=== PATIENT | male | born 1945 | race Caucasian/White ===

== ENCOUNTER 2024-11-14 17:57 | Inpatient (IN) | payer MEDICARE, SELFPAY ==
[2024-11-14] VITALS (20 sets, daily range): BP systolic 61–153; BP diastolic 28–116; BMI 30.7; BMI 28.6
[2024-11-14] MEDS: DIPRIVAN 100 IV ×3 (15:43→22:38)
[2024-11-14 15:51] LABS: HCO3 17.8 mmol/L (21-28); O2 Saturation % 97.9 % (94-98); PCO2 33 mmHg (35-48); PO2 84 mmHg (83-108); pH 7.34 (7.35-7.45)
[2024-11-14] MEDS: SUBLIMAZE 100 MCG IV (15:51)
[2024-11-14] MEDS: LEVOPHED 250 IV (16:11)
[2024-11-14 16:17] LABS: Hematocrit 34.3 % (39.0-52.0); Mean Corpuscular Hgb 31.9 pg (27.0-31.0); Mean Corpuscular Volume 91.2 fL (80.0-94.0); Mean Platelet Volume 9.6 fL (7.4-10.4); Platelet Count 401 10^3/uL (130-400); Red Blood Cell Count 3.76 10^6/uL (4.70-6.10); Red Cell Dist. Width 15.6 % (11.5-14.5); White Blood Cell Count 25.3 10^3/uL (4.8-10.8)
[2024-11-14 16:27] LABS: Urine Albumin 3+ (Neg - Trace); Urine Bilirubin Negative (Negative); Urine Character Cloudy (Clear); Urine Color Brown; Urine Glucose Negative (Negative); Urine Ketone 1+ (Negative); Urine Leukocyte 3+ (Negative); Urine Nitrite Positive (Negative); Urine Occult Blood 4+ (Negative); Urine Urobilinogen 1+ (Neg - 1+)
[2024-11-14 16:28] LABS: ALT (SGPT) 57 U/L (0-50); AST (SGOT) 98 U/L (17-59); Albumin 3.1 g/dl (3.5-5.0); Alkaline Phosphatase 179 U/L (38-126); Blood Urea Nitrogen 55 mg/dl (9-20); Calcium 8.1 mg/dl (8.4-10.2); Carbon Dioxide 18 mmol/L (22-30); Chloride 94 mmol/L (98-107); Estimated Creatinine Clearance 39 ml/min; Glucose 136 mg/dl (70-99); Potassium 3.9 mmol/L (3.5-5.1); Sodium 127 mmol/L (135-145); Total Protein 5.6 g/dl (6.3-8.2); eGFR 37.35
[2024-11-14 16:30] LABS: INR 1.08; PT 14.3 Sec (11.4-14.6)
[2024-11-14 16:31] LABS: APTT 48.1 Sec (23.4-35.0)
[2024-11-14 16:33] LABS: Lactic Acid 4.6 mmol/L (0.7-2.0)
[2024-11-14 16:38] LABS: NT-proBNP 3460 pg/ml; Troponin I 0.018 ng/ml
[2024-11-14 16:42] LABS: COVID-19 Antigen Positive (Negative)
[2024-11-14 16:43] LABS: Urine Bacteria Many (Negative); Urine Red Blood Cell 30-40 /HPF (0-2); Urine White Cell >100 /HPF (0-5)
[2024-11-14] MEDS: DECADRON 6 MG IV (16:45)
--- NOTE | 2024-11-14 16:51 | ED.GENMED ---
History of Present Illness
General
Chief Complaint: Unresponsive
Time Seen by Provider: 11/14/24 15:49
History of Present Illness
History of Present Illness:
79-year-old male with recent history of CVA with left-sided deficits presenting to the emergency department for unresponsive state. Patient arrives from rehab facility where patient has been rehabbing after recent stroke. Patient is on day 5 of
COVID symptoms. Prior to arrival, was noted to have increased difficulty breathing. Per medics, patient tachypneic and hypoxic. Patient subsequently intubated and route for airway protection. On arrival, patient minimally responsive, intubated.
Per medics, patient also noted to have some abdominal distention, which nurses note has been ongoing. No additional history obtained at this time.
Past History
Past History
ED Past Medical History: None
ED Past Surgical History: None
Social History
Tobacco: Former smoker
Alcohol: Occasional
Personal:
Living: with family
Family History
Family History: Negative Diabetes, Early CAD, Asthma or Cancer
Phy Exam
Physical Exam
Physical Exam:
General: Unresponsive, intubated
HEENT: Intubated
Neck: appears supple
CV: Tachycardic, irregularly irregular rhythm
Resp: With rhonchorous breath sounds bilaterally
Abd: Moderate distention, reducible umbilical hernia
Extremities: No deformities, no swelling
Neuro: Minimally responsive to pain, not currently following commands
: deferred
Rectal: deferred
Skin: Intact
Sepsis
Sepsis Screening
Sepsis Assessment: Septic Shock
Sepsis Screening: Lactate >/=4mmol/L
Sepsis Screen
Sepsis Screen: Septic Shock
Date: 11/14/24
Time: 19:50
Course
Orders/Labs/Results
Orders:
Orders
11/14/24 Breakfast
NPO
Allow oral meds: No
Allow clear liquids: No
NPO with Ice Chips: No
11/14/24 15:35
Electrocardiogram (*1) Urgent
Reason for Study: Heart Failure, Left
EKG- Treatment ONCE
11/14/24 15:45
ABG [Arterial Blood Gas] Urgent
%Oxygen/Room Air: 94
Comment: intubated
11/14/24 15:46
CR Chest Portable - 1 View Urgent
Comment:
Reason For Exam: Intubated
Reason Study Needs to be Portable: Patient Unstable
11/14/24 15:48
Fentanyl Citrate/Pf [Sublimaze] 100 mcg .ROUTE .[facility]
11/14/24 15:50
Fentanyl Citrate/Pf [Sublimaze] 100 mcg IV NOW STA
11/14/24 15:53
Lactic Acid Urgent
PTT Urgent
Prothrombin Time Urgent
Blood Culture Urgent
AL Source: Blood/Venous
Specimen Description:
Influenza A+B Rapid Molecular Urgent
AL Source: Nasal Swab
Specimen Description:
Date Specimen was Collected: 11/14/24
Time Specimen was Collected: 15:35
11/14/24 15:54
COVID-19 Antigen Urgent
Source: Nasal Swab
Complete Blood Count/With Diff Urgent
Comprehensive Metabolic Panel Urgent
Manual Differential Urgent
NT-proBNP Urgent
Triglycerides Urgent
Comment: ADD ON
Troponin I Urgent
Urinalysis Reflex To Culture Urgent
Date Specimen was Collected: 11/14/24
Time Specimen was Collected: 15:35
Urine Creatinine Urgent
Date Specimen was Collected: 11/14/24
Time Specimen was Collected: 15:35
Comment: ADD ON
Urine Microscopic Reflex Cult Urgent
Urine Sodium Urgent
Date Specimen was Collected: 11/14/24
Time Specimen was Collected: 15:35
Comment: ADD ON
Urine Culture Urgent
AL Source: U
Specimen Description:
Date Specimen was Collected: 11/14/24
Time Specimen was Collected: 15:35
11/14/24 16:03
Blood Culture Urgent
AL Source: Blood/Venous
Specimen Description:
11/14/24 16:08
NORepinephrine 4 MG/250 ML [Levophed] 4 mg in 250 ml .ROUTE .[facility]
11/14/24 16:15
NORepinephrine 4 MG/250 ML [Levophed] 4 mg in 250 ml IV PER PROTOCOL
Currently infusing. Continue current dose and titrate:: Yes
Titrate to keep:: MAP > 65 mmHg
Titrate by mcg/min:: 1-2 mcg/min
Frequency of titrations (minutes):: 5
Maximum dose in ICU in mcg/min:: 30
Maximum dose in IMU in mcg/min:: 8
Maximum dose in IVU in mcg/min:: 4
Begin to taper infusion when:: Remained at goal for 4hrs
Taper by mcg/min:: 1-2 mcg/min
Frequency of taper (minutes) if patient maintains goal:: 30
Taper to off?: Yes
If infusion off & no longer maintaining goal:: Contact Provider
Propofol 1,000,000 Mcg/100 ml [Diprivan] 1,000,000 mcg in 100 ml IV PER PROTOCOL
Indication:: Deep Sedation
Begin Infusion:: Now
Goal:: RASS -3 to -5 or BIS < 60 or ventilator synchrony
Maximum dose in mcg/kg/min:: 50
Continue currently infusion dose and titrate:: Yes
Titration Instructions:: Titrate by 5-10 mcg/kg/min every 5 minutes until RASS -3 to -5 or
Titration Instructions:: BIS < 60 or ventilator synchrony is met.
Titration Instructions:: Administer analgesia bolus dose(s) & titrate analgesia prior to
Titration Instructions:: adjusting sedation.
Taper Instructions:: If RASS is at or below goal for 4 consecutive hours decrease infusion by
Taper Instructions:: 5-10 mcg/kg/min every 2 hours. Do not wean infusion to off if patient is
Taper Instructions:: receiving a continuous NMBA or has received bolus NMBA with the past 3 hrs
Over-sedation Instructions:: If BIS < 40 and synchronous with ventilator decrease infusion by
Over-sedation Instructions:: 5-10 mcg/kg/min every 2 hour until BIS = 40-60.
Notify provider:: immediately if patient exhibits signs/symptoms of propofol-related
Notify provider:: infusion syndrome.
Additional Instructions:: Patient MUST be mechanically ventilated and MUST receive analgesia.
11/14/24 16:20
Dexamethasone Sod Phosphate [Decadron] 6 mg IV NOW STA
11/14/24 16:51
0.9% Sodium Chloride 1000 ml [Nss] 1,000 ml IV BOLUS
11/14/24 16:52
CT Pe/abd/pel W Urgent
Reason For Exam: hypoxia, covid
11/14/24 17:04
Cefepime HCl [Maxipime] 2,000 mg IV NOW STA
11/14/24 17:10
Sterile Water [Sterile Water For Injection] 20 ml .ROUTE .[facility]
11/14/24 17:26
Admit/Transfer Patient As Directed
Co-Sign Provider:
Level of Care: Inpatient admission
Assign to:: ICU
Physician / Group: Parth
Diagnosis: Hypoxia, Sepsis, COVID
Reason for Hospitalization: vent, pressors
Expected length of stay greater than two midnights?: Yes
ELOS- Estimated Length of Stay in days: 3
I certify the patient meets the requirements for IP care: Yes
PRN Pain Medication Management As Directed
May give lesser potent ordered pain med per pt: Yes
preference::
Protocol:: Medication orders for pain may be administered in a
manner that supports deferring to patient preference
when the pt is:
- Requesting an ordered lesser potent pain medication.
Least to most potent pain medications are defined
as: acetaminophen < NSAID < tramadol < opioids
(morphine, oxycodone, hydromorphone).
- Requesting a lesser dose of the same medication IF
ORDERED.
- Requesting a less intrusive route of administration
if both routes are prescribed by the provider (PO <
IV).
11/14/24 17:51
CT Head W/o Iv Contrast Stat
Comment:
Reason For Exam: change in mental status
0.9% Sodium Chloride 1000 ml [Nss] 1,000 ml IV BOLUS
11/14/24 17:58
Respiratory Culture/Gram Stain Urgent
AL Source: Sputum
Specimen Description:
11/14/24 18:00
PHENYLephrine 50 MG/250 ML NSS [Christos-Synephrine] 50 mg in 250 ml IV PER PROTOCOL
Initial dose in mcg/min, then titrate:: 50
Titrate to keep:: MAP > 65 mmHg
Titrate by mcg/min:: 20 mcg/min
Frequency of titrations (minutes):: 5
Maximum dose in ICU in mcg/min:: 200
Maximum dose in IMU in mcg/min:: 80
Begin to taper infusion when:: Remained at goal for 4hrs
Taper by mcg/min:: 20 mcg/min
Frequency of taper (minutes) if patient maintains goal:: 30
Taper to off?: Yes
If infusion off & no longer maintaining goal:: Contact Provider
11/14/24 18:44
Acetaminophen [Tylenol/Feverall] 650 mg RECTAL Q4HPRN PRN
Acetaminophen [Tylenol] 650 mg PO Q4HPRN PRN
Lactated Ringers [Lr] 1,000 ml IV 100 mls/hr
Piperacillin/Tazo 3.375 Gram [Zosyn] 3.375 gram in 50 ml IV Q6H
VANCOMYCIN Pharmacy to Dose [VANCOCIN Pharmacy to Dose] 1 each Pharmacy To Prepare [Call Pharmacy To Prepare] 0 ml IV PER PROTOCOL
11/14/24 18:44
[employer] Consult Urgent
Consulting Provider: Quinn Eugene
Was physician already notified: Yes
Protime/PTT Routine
Bedside Glucose Monitoring-ONCE As Directed
Comment: upon arrival to ICU
Bladder Scan As Directed
Follow Bladder Retention/Intermittent Cath Algorithm?: Yes
Frequency: Per Retention Algorithm
Comment: as per intermittent urinary catheter algorithm
ECG as needed As Directed
ECG as needed for:: Chest Pain
Other reason
Other reason for ECG as needed:: new suspicion of ACS
Comment: At onset of Chest Pain and then Q__H x 2. draw Troponin with each ECG
Additional Instructions:: at onset of chest pain or new suspicion of ACS:
-- ECG and Troponin urgent now
-- then ECG and Troponin with each ECG every 3 hours x total of 3,
including ED or other inpatient ECG/troponins.
INT (Intravenous Needle Therapy) As Directed
Intake/ Output As Directed
Frequency: Per unit guidelines
Notify MD As Directed
Notify physician if: if patient has chest pain or new suspicion of ACS
Notify MD As Directed
Notify physician if: while in ICU level of care:
glucose greater than or equal to 180 mg/dL once, contact provider to initiate Critical
Care Glycemic Protocol Target Range 140-180 mg/dL.
Straight Cath As Directed
Frequency: Per Retention Algorithm
Additional Instructions: as per intermittent urinary catheter algorithm
Vital Signs As Directed
Frequency: Per unit guidelines
Weight As Directed
Frequency: Daily
Pulse Ox/spot Check [RESP] Urgent
Quantity: 1
Special Instructions: Pulse Oximetry on admission
Ventilator Initial Settings [RESP] Routine
DX Deep Vein Thrombosis Video Routine
11/14/24 19:00
Dexamethasone Sod Phosphate [Decadron] 6 mg IV Q24H
Pantoprazole [Protonix IV] 40 mg IV Q12H
11/14/24 20:00
Lactic Acid Q6H
11/15/24 00:00
Heparin 5,000 units SC Q8
11/15/24 02:00
Lactic Acid Q6H
11/15/24 06:00
Complete Blood Count/With Diff IN AM
Comprehensive Metabolic Panel IN AM
Glycohemoglobin (HgbA1c) IN AM
Magnesium IN AM
Phosphorus IN AM
11/15/24 08:00
Polyethylene Glycol Powder [Miralax] 17 grams TUBE DAILY
11/17/24 06:00
Triglycerides Q3D
Comment: every 72 hours while patient is on propofol
11/20/24 06:00
Triglycerides Q3D
Comment: every 72 hours while patient is on propofol
11/23/24 06:00
Triglycerides Q3D
Comment: every 72 hours while patient is on propofol
Abnormal Lab Results
11/14/24 11/14/24 11/14/24
15:45 15:53 15:54
WBC 25.3 H 10^3/uL
(4.8-10.8)
RBC 3.76 L 10^6/uL
(4.70-6.10)
Hgb 12.0 L g/dL
(13.0-18.0)
Hct 34.3 L %
(39.0-52.0)
MCH 31.9 H pg
(27.0-31.0)
RDW 15.6 H %
(11.5-14.5)
Plt Count 401 H 10^3/uL
(130-400)
Abs Neuts (Manual) 22.7 H 10^3/uL
(1.4-6.5)
Segmented Neutrophils 82 H %
(42-75)
Band Neutrophils 8 H %
(0-3)
Lymphocytes (Manual) 2 L %
(20-51)
APTT 48.1 H Sec
(23.4-35.0)
pH 7.34 L
(7.35-7.45)
pCO2 33 L mmHg
(35-48)
HCO3 17.8 L mmol/L
(21-28)
Sodium 127 L mmol/L
(135-145)
Chloride 94 L mmol/L
(98-107)
Carbon Dioxide 18 L mmol/L
(22-30)
BUN 55 H mg/dl
(9-20)
Creatinine 1.8 H mg/dL
(0.7-1.3)
Glucose 136 H mg/dl
(70-99)
Lactic Acid 4.6 H* mmol/L
(0.7-2.0)
Calcium 8.1 L mg/dl
(8.4-10.2)
AST 98 H U/L
(17-59)
ALT 57 H U/L
(0-50)
Alkaline Phosphatase 179 H U/L
(38-126)
Total Protein 5.6 L g/dl
(6.3-8.2)
Albumin 3.1 L g/dl
(3.5-5.0)
Urine Ketones 1+ A
(Negative)
Ur Occult Blood Reflex 4+ A
(Negative)
Urine Nitrite (Reflex) Positive A
(Negative)
Leukocyte Esterase Rfl 3+ A
(Negative)
Urine RBC 30-40 A /HPF
(0-2)
Urine WBC (Reflex) >100 A /HPF
(0-5)
Urine Bacteria (Reflex) Many A
(Negative)
Urine Sodium 10 L mmol/L
(30-90)
Urine Albumin (Reflex) 3+ A
(Neg - Trace)
SARS-CoV-2 Antigen Positive A
(Negative)
11/14/24 15:54
11/14/24 15:54
Vital Signs
Initial and Last Documented VS:
Initial Vital Signs
Pulse BP Pulse Ox
112 153/116 94
11/14/24 15:36 11/14/24 15:36 11/14/24 15:36
Last Documented Vital Signs
Temp Pulse Resp BP Pulse Ox
99.6 F 126 27 85/56 90
11/14/24 15:41 11/14/24 19:00 11/14/24 19:00 11/14/24 19:00 11/14/24 19:00
MDM/Problems Addressed
MDM/Problems Addressed:
79-year-old male with recent history of CVA's with left-sided deficits presenting for respiratory distress unresponsive state. Vital signs on arrival are significant for tachycardia and tachypnea.
Patient arrives intubated, known COVID section from rehab facility. Suspect etiology of patient's respiratory distress. Patient arrives bilateral breath sounds, suspect tube is in place. Will confirm with x-ray imaging. Patient is rhonchorous,
suspected from underlying COVID infection. Vital signs are concerning for sepsis with tachycardia and tachypnea, however lower suspicion for bacterial source given known positive COVID status. Patient slightly agitated, started on propofol.
Additionally on initial arrival, patient noted to have some emesis with abdominal distention. OG placed with large volume of brown gastric contents. Will obtain a CT abdominal imaging to ensure no concomitant bowel obstruction or bowel process.
Patient's heart rate is elevated, however appears to be in atrial fibrillation. No prior history. Holding any antiarrhythmic medications, blood pressure dropping
14:20 - Blood pressure continues to decrease, started on Levophed. Again holding antiarrhythmic medications for tachycardia. Chest x-ray confirms ET tube and OG tube. No significant pulmonary edema so we will start patient on IV fluids. Lactic
acid is greater than 4. However at this time do not feel patient warrants full 30 cc/kg fluid bolus, do not want to fluid overload, and again without concern for bacterial source of infection given known positive COVID
14:40 - updated on patient's critical condition at bedside. Urine is positive for infection. Will start cefepime. Patient pending CT imaging. Ultimate plan for admission
*EKG
Interpreted by ED Provider?: Yes
EKG Intrepretation Date: 11/14/24
EKG Intrepretation Time: 16:59
Interpretation: abnormal
Comparison EKG: no comparison EKG present
Heart Rate: 142
Rate: tachycardiac
Rhythm: a-fib
[place]: normal axis
QRS Pattern: normal QRS
*Critical Care Note
Total Time (30-74mins, 75-104mins- exclusive of procedures): 67
comment:
The high probability of a clinically significant, sudden or life threatening deterioration of the cardiorespiratory system(s) required my full and direct attention, intervention and personal management. The aggregate critical care time was 67
minutes. This time is in addition to time spent performing reported procedures but includes the following:
[x] Data Review and interpretation
[x] Patient assessment and monitoring of vital signs
[x] Documentation
[x] Medication orders and management
ED Attending Note
-
Portions of this chart may have been created with voice recognition software.� Occasional wrong word or��sound alike� substitutions may have occurred due to the inherent limitations of voice recognition software.
Discharge Plan
Departure
Patient Disposition: Admit
Date of Disposition: 11/14/24
Time of Disposition: 16:13
Presentation/result/management discussed w/ accepting MD/DO: Hospitalist
Patient with high blood pressure during this ER visit?: No
Condition: Critical
Discharge Problem:
Respiratory failure with hypoxia, COVID-19
Interventions
Interventions:
*ED- Fall Risk Assessment Last Done: 11/14/24 16:19
*ED COVID-19 Vaccine History Last Done: 11/14/24 16:19
*Nursing Disposition Last Done: 11/14/24 19:02
ED- Neurological Assessment Last Done: 11/14/24 16:06
Discharge Date and Time
Discharge Date/Time: 11/14/24 19:02
[2024-11-14] MEDS: NSS 1000 IV ×2 (16:54→19:01)
[2024-11-14] MEDS: MAXIPIME 2000 MG IV (17:10)
[2024-11-14 17:47] LABS: Absolute Neutrophils -Man Diff 22.7 10^3/uL (1.4-6.5); Band Neutrophils 8 % (0-3); Lymphocytes 2 % (20-51); Monocytes 5 % (2-9); Segmented Neutrophils 82 % (42-75)
[2024-11-14 17:48] LABS: Metamyelocytes 3 % (-); Normal RBC Morphology Yes; Platelets Checked Yes; Total Cells Counted 100
--- NOTE | 2024-11-14 17:56 | HPS.HSE ---
Family Physician
-
Family Physician: NOT KNOW UNKNOWN - PT DOES
Chief Complaint
-
hypoxemic
History of Present Illness
79-year-old male past medical history recent CVA with left-sided deficits bedbound at baseline, renal cell cancer status post kidney resection, hypothyroidism, presenting for unresponsiveness. Patient arrives from rehab facility where he has been
at after recent CVA. He has residual left-sided weakness and bedbound after the stroke. History is obtained from patient's daughter. No prior history of pulmonary conditions or cardiac disease.
Over the past 5 days he developed cough and upper respiratory symptoms which have been stable. He was not treated with any medication. Today he was extremely short of breath and became unresponsive. He has been constipated recently increased
abdominal distention without vomiting. No blood in the stool. No fevers or chills.
He arrived agitated and still on propofol. Blood pressure dropped so he is now on Levophed. OG tube was placed and a lot of brown output.
He is a former smoker. He does not drink alcohol or use any drugs.
Medical History
Past Medical History
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
Past Surgical History: Reports Other (kidney resection )
Social History
Tobacco: Former Smoker
Alcohol: None
Drug: None
Family History
Family History: Not pertinent
Allergies / Home Medications
Allergies reflects when Allergies were last updated in [facility].
Home Medications with original date entered in [facility]
Allergy/Medication List:
Allergies
Allergy/AdvReac Type Severity Reaction Status Date / Time
No Known Allergies Allergy Verified 08/14/18 08:23
Home Medications
acetaminophen 325 mg tablet 650 mg PO Q6HPRN PRN mild pain/temp >100 11/14/24
acetaminophen 500 mg tablet (Tylenol Extra Strength) 1,000 mg PO DAILY 11/14/24
aluminum-mag hydroxide-simethicone 400 mg-400 mg-40 mg/5 mL oral susp (Maalox Maximum Strength) 30 ml PO DAILYPRN PRN indigestion 11/14/24
baclofen 5 mg tablet 5 mg PO Q8HPRN PRN spasm 11/14/24
bisacodyl 10 mg rectal suppository (Dulcolax (bisacodyl)) 10 mg RI DAILYPRN PRN if MOM ineffective 11/14/24
bisacodyl 5 mg tablet,delayed release (Dulcolax (bisacodyl)) 10 mg PO DAILYPRN PRN constipation 11/14/24
cholecalciferol (vitamin D3) 25 mcg (1,000 unit) tablet (Vitamin D3) 25 mcg PO DAILY 11/14/24
enoxaparin 40 mg/0.4 mL subcutaneous syringe (Lovenox) 40 mg SC DAILY 11/14/24
furosemide 40 mg tablet (Lasix) 40 mg PO DAILY 11/14/24
gabapentin 100 mg capsule 200 mg PO Q12H 11/14/24
guaifenesin 100 mg/5 mL oral liquid 300 mg PO Q4HPRN PRN cough 11/14/24
ipratropium 0.5 mg-albuterol 3 mg (2.5 mg base)/3 mL nebulization soln 3 ml inhalation R Q6HWA 11/14/24
levothyroxine 200 mcg tablet 200 mcg PO DAILY 11/14/24
magnesium hydroxide 400 mg/5 mL oral suspension (Milk of Magnesia) 2,400 mg PO [id number] PRN no BM for 3 days 11/14/24
melatonin 3 mg tablet 3 mg PO HS insomnia 11/14/24
nirmatrelvir 300 mg (150 mg x2)-ritonavir 100 mg tablet,dose pack (Paxlovid) 3 ea PO BID covid 11/14/24
polyethylene glycol 3350 17 gram/dose oral powder 17 g PO DAILYPRN PRN constipation 11/14/24
sennosides 8.6 mg tablet 8.6 mg PO DAILYPRN PRN constipation 11/14/24
sodium phosphates 19 gram-7 gram/118 mL enema (Fleet Enema) 118 ml RI DAILYPRN PRN if dulcolax ineffective 11/14/24
Review of Systems
-
History Source: Patient
A 12 point ROS was completed and negative except as noted: Yes
Constitutional: Reports No Symptoms
EENT: Reports No Symptoms
Respiratory: Reports No Symptoms
Cardiac: Reports No Symptoms
Abdomen/GI: Reports No Symptoms
: Reports No Symptoms
Musculoskeletal: Reports No Symptoms
Skin: Reports No Symptoms
Neurological: Reports No Symptoms
Endocrine: Reports No Symptoms
Hematologic/Lymphatic: Reports No Symptoms
Psych: Reports No Symptoms
Physical Exam
Vital Signs
Vital Signs
Temp Pulse Resp BP Pulse Ox
99.6 F 143 30 86/47 94
11/14/24 15:41 11/14/24 17:45 11/14/24 17:45 11/14/24 17:30 11/14/24 17:45
Physical Exam
General: Well Developed, Well Nourished and No Apparent Distress
HEENT: NormoCephalic, Moist mucous membranes and Atraumatic
Respiratory: Clear
Cardiac: S1/S2 and Regular Rhythm; No Murmur or Rub
GI: Soft, Non Tender, Non Distended and Normal Bowel Sounds; No Organomegaly
Rectal: Deferred by Provider
Musculoskeletal: No Clubbing, No Cyanosis and No Edema
Skin: No Rash
Neuro: Nonfocal/grossly intact
Laboratory Results
-
11/14/24 15:54
11/14/24 15:54
Laboratory Results
PT 14.3 Sec (11.4-14.6) 11/14/24 15:53
INR 1.08 11/14/24 15:53
APTT 48.1 Sec (23.4-35.0) H 11/14/24 15:53
pH Cancelled 11/14/24 15:53
pCO2 Cancelled 11/14/24 15:53
pO2 Cancelled 11/14/24 15:53
HCO3 Cancelled 11/14/24 15:53
Lactic Acid 4.6 mmol/L (0.7-2.0) H* 11/14/24 15:53
Total Bilirubin 1.0 mg/dl (0.2-1.3) 11/14/24 15:54
AST 98 U/L (17-59) H 11/14/24 15:54
ALT 57 U/L (0-50) H 11/14/24 15:54
Alkaline Phosphatase 179 U/L (38-126) H 11/14/24 15:54
Troponin I 0.018 ng/ml 11/14/24 15:54
Data Reviewed
-
Lab Data: Labs Reviewed by me
Old Records: Reviewed
Impression/Plan
-
IMPRESSION:
PLAN:
# Hypoxemic respiratory failure/sepsis (tachycardia, hypotension, leukocytosis ) secondary to COVID pneumonia day 5
-Chest x-ray shows mild opacities in the bilateral lung bases likely viral pneumonia from COVID
-currently hypotensive, IV fluids, 1 L given, 1 more liter and continue maintenance fluids, cardiac BNP of 4600 although no prior history of heart failure although on Lasix
-Leukocytosis
-Blood cultures, sputum culture
-Dexamethasone 6 mg daily
-Does not qualify for remdesivir given DAO, solitary kidney
-CT PE/abdomen pelvis pending
-Empiric antibiotics with vancomycin/Zosyn to cover for aspiration pneumonia given recent CVA
-Check CT head
#New Onset atrial fibrillation with RVR
-Heart rate up to 140s
-Change Levophed to phenylephrine
-monitor with IV fluids
# Brown output from OG tube
-Protonix 80 IV, 40 BID
# Acute kidney injury likely
# Solitary kidney
-IV fluids
-Hold Lasix
# Transaminitis likely secondary to COVID
-Continue to monitor
# Hyponatremia secondary to COVID
-Sodium 127
-Monitor with IV fluids
# Urinary tract infection
-Zosyn
Recent CVA with left-sided deficit
-Bedbound at baseline
History of renal cell carcinoma status post kidney resection
Hypothyroidism
Full code
DVT prophylaxis�heparin
N.p.o.
--- NOTE | 2024-11-14 18:00 | CON.INTV ---
Consultation
Consultation Request
Date/Time Consultation Requested: 11/14/2024
Date/Time Consultation Performed: 11/14/2024
Requesting Provider: Sonu Alba
Performing Provider: Quinn Eugene
Reason for Consultation: Shock and respiratory failure
Medical History
-
Chief Complaint: Shortness of breath
History of Present Illness:
Patient is a 79-year-old gentleman who is currently intubated, mechanically ventilated and sedated. I do not have much access to his outside records, history is provided by patient's at bedside and review of the current records.
In brief patient has a history of renal cell carcinoma status post solitary kidney and was reportedly diagnosed with COVID at a [facility] about 5 days ago. It is unclear but he probably was on Paxlovid there and per he was more short of
breath today and for increasing shortness of breath, EMS was called and patient was noted to be hypoxic and hypotensive. He was emergently intubated in the field and was brought to the emergency room. Patient was noted to be hypotensive despite IV
fluids and was started on Levophed. Subsequently a chest x-ray was performed which was suggestive of right-sided pneumonia and patient was started on broad-spectrum antibiotics. Patient was felt to have distended abdomen in the emergency room, an
OG tube was placed and dark black/brown effluent was noted concerning for question GI bleed.
Patient is being admitted to the ICU for shock as well as respiratory failure with acute kidney injury. Band Manager consult was requested for further input.
He is a former smoker. He does not drink alcohol or use any drugs.
Medical History
Past Medical History
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
Past Surgical History: Reports Other (kidney resection )
Social History
Tobacco: Former Smoker
Alcohol: None
Drug: None
Family History
Family History: Not pertinent
Allergies / Home Medications
Allergies
Allergy/AdvReac Type Severity Reaction Status Date / Time
No Known Allergies Allergy Verified 08/14/18 08:23
Home Medications
�Medication �Instructions �Recorded �Confirmed �Last Taken �Type
acetaminophen 325 mg tablet 650 mg PO Q6HPRN PRN mild 11/14/24 11/14/24 Unknown History
pain/temp >100
acetaminophen 500 mg tablet 1,000 mg PO DAILY 11/14/24 11/14/24 Unknown History
(Tylenol Extra Strength)
aluminum-mag hydroxide-simethicone 30 ml PO DAILYPRN PRN indigestion 11/14/24 11/14/24 Unknown History
400 mg-400 mg-40 mg/5 mL oral susp
(Maalox Maximum Strength)
baclofen 5 mg tablet 5 mg PO Q8HPRN PRN spasm 11/14/24 11/14/24 Unknown History
bisacodyl 10 mg rectal suppository 10 mg ME DAILYPRN PRN if MOM 11/14/24 11/14/24 Unknown History
(Dulcolax (bisacodyl)) ineffective
bisacodyl 5 mg tablet,delayed 10 mg PO DAILYPRN PRN constipation 11/14/24 11/14/24 Unknown History
release (Dulcolax (bisacodyl))
cholecalciferol (vitamin D3) 25 25 mcg PO DAILY 11/14/24 11/14/24 Unknown History
mcg (1,000 unit) tablet (Vitamin
D3)
enoxaparin 40 mg/0.4 mL 40 mg SC DAILY 11/14/24 11/14/24 Unknown History
subcutaneous syringe (Lovenox)
furosemide 40 mg tablet (Lasix) 40 mg PO DAILY 11/14/24 11/14/24 Unknown History
gabapentin 100 mg capsule 200 mg PO Q12H 11/14/24 11/14/24 Unknown History
guaifenesin 100 mg/5 mL oral liquid 300 mg PO Q4HPRN PRN cough 11/14/24 11/14/24 Unknown History
ipratropium 0.5 mg-albuterol 3 mg 3 ml inhalation R Q6HWA 11/14/24 11/14/24 Unknown History
(2.5 mg base)/3 mL nebulization
soln
levothyroxine 200 mcg tablet 200 mcg PO DAILY 11/14/24 11/14/24 Unknown History
magnesium hydroxide 400 mg/5 mL 2,400 mg PO [id number] PRN no BM for 11/14/24 11/14/24 Unknown History
oral suspension (Milk of Magnesia) 3 days
melatonin 3 mg tablet 3 mg PO HS insomnia 11/14/24 11/14/24 Unknown History
nirmatrelvir 300 mg (150 mg 3 ea PO BID covid 11/14/24 11/14/24 Unknown History
x2)-ritonavir 100 mg tablet,dose
pack (Paxlovid)
polyethylene glycol 3350 17 17 g PO DAILYPRN PRN constipation 11/14/24 11/14/24 Unknown History
gram/dose oral powder
sennosides 8.6 mg tablet 8.6 mg PO DAILYPRN PRN constipation 11/14/24 11/14/24 Unknown History
sodium phosphates 19 gram-7 118 ml ME DAILYPRN PRN if dulcolax 11/14/24 11/14/24 Unknown History
gram/118 mL enema (Fleet Enema) ineffective
Review of Systems
-
Unable to Obtain full review of systems at this time due to: Patient Intubation
Vitals / Labs / Diagnostic Testing
Vital Signs
Temp Pulse Resp BP Pulse Ox
99.6 F 143 30 86/47 94
11/14/24 15:41 11/14/24 17:45 11/14/24 17:45 11/14/24 17:30 11/14/24 17:45
Lab Data
11/14/24 15:54
11/14/24 15:54
Laboratory Results
11/14/24 11/14/24
15:45 15:53
PT 14.3
INR 1.08
APTT 48.1 H
pH 7.34 L Cancelled
pCO2 33 L Cancelled
pO2 84 Cancelled
HCO3 17.8 L Cancelled
O2 Delivery Level Cancelled
Microbiology
11/14/24 15:53 Nasal Swab Influenza Types A & B (KOBI) - Final
Negative for Influenza A & B, NAAT
Negative results must be combined with clinical observations
and patient history.
Nucleic Acid Amplification test (NAAT)performed on the
[employer] NOW platform.
Diagnostic Testing:
Physical Exam
-
HEENT: Normocephalic and Moist Mucous Membranes (Dry oral mucosa)
Cardiovascular: S1/S2 (Patient is tachycardic, irregularly irregular rhythm)
Respiratory: Rhonchi (Right greater than left) and Accessory Resp Muscle Use
GI: Distended
Neurology: Other (Patient currently sedated)
Assessment
-
#1. Acute hypoxic respiratory failure. Recent diagnosis of COVID-19
-R>L basal infiltrates vs atelectasis noted on imaging, aspiration pneumonia and superimposed bacterial pneumonia also in differential
-CT images are not typical of COVID-19 pneumonia
-No PE noted on CT
-Continue dexamethasone and add vancomycin and cefepime
-Patient is in acute kidney injury and also has solitary kidney with prior diagnosis of renal cell carcinoma, will avoid Remdesivir
-Continue ventilatory support, follow-up ABG, titrate FiO2 as needed
-Sedation with Propofol and Fentanyl
#2. Shock, suspect septic shock. Differential diagnosis include pneumonia as well as UTI considering patient has significant WBCs in the urine
-Blood cultures, urine cultures
-Start broad-spectrum antibiotics, vancomycin and cefepime
-Patient currently on Levophed, will transition to phenylephrine in view of atrial fibrillation and rapid ventricular rate
#3. Atrial fibrillation with rapid ventricular rate.
-Unclear if it is new versus patient has prior history
-Continue aggressive fluid hydration, patient got 1 L in the emergency room, will give another liter of Ringer lactate bolus
-Continue vasopressor, phenylephrine as needed
-If patient becomes increasingly hemodynamically unstable, will start amiodarone versus emergent cardioversion
-Patient has recent history of stroke, will hold off on anticoagulation until a CT head can be performed
-Serial Troponin and ECHO
#4. Acute kidney injury, (currently solitary kidney) prior history of renal cell carcinoma status post nephrectomy per patient's spouse at bedside
-Avoid hypotension, keep MAP greater than 65
-Continue IV fluid resuscitation
-Vasopressors as needed to keep adequate perfusion
-Strict input and output
-Follow labs closely
-Depending on patient's response to overnight resuscitation, might need nephrology consult
#5. Dark brown/black output from OG tube, ? Concern for upper GI bleed
-Avoid antiplatelets or anticoagulants
-IV PPI 80 mg bolus followed by 40 every 12
-Keep hemoglobin above 7
-Serial labs
#6. History of hypothyroidism
-Hold levothyroxine while n.p.o.
#7. Hyponatremia.
-Likely hypovolemic hyponatremia
-Check urine sodium and urine osmolality
DVT prophylaxis: Await CT head prior to giving any anticoagulants.
GI prophylaxis: IV pantoprazole
Updated patient's at bedside. Consent obtained from her for central and arterial line in view of hemodynamic instability.
Critical Care time 65 mins -- The patient is admitted for acute critical illness for the treatment of vital organ failure and/or prevention of further life-threatening conditions. Total care includes time spent in review of history, physical exam,
medications, hemodynamic/ventilator parameters, laboratory data, imaging and discussion with house staff, pharmacy, respiratory therapy, daily release and dupe printer, and nursing.
DATA:
CHEST:
1. No CTA evidence for an acute pulmonary thromboembolism in the main or lobar pulmonary arteries. Suboptimal evaluation of the bilateral segmental and subsegmental pulmonary arteries.
2. Small bilateral pleural effusions and bilateral lower lobe compressive atelectasis.
3. Mild wall thickening of the esophagus suggesting esophagitis.
ABDOMEN/PELVIS:
1. Gallbladder distention with some fat stranding, but no appreciable choledocholithiasis by CT.
2. 2.2 cm nodule in the left nephrectomy bed, which could represent recurrent disease or an abnormal lymph node. No prior imaging of the abdomen is currently available for direct comparison.
3. Large amount of stool in the rectum may be secondary to constipation and/or fecal impaction.
4. Collapsed urinary bladder with wall thickening and a Ricks catheter in place. Recommend correlation with a urinalysis.
[2024-11-14 18:58] LABS: Urine Sodium 10 mmol/L (30-90)
[2024-11-14] MEDS: LR 1000 IV (18:58)
[2024-11-14] MEDS: NEO-SYNEPHRINE 250 IV ×2 (19:03→22:38)
[2024-11-14 19:04] LABS: Triglycerides 124 mg/dl (10-149)
--- NOTE | 2024-11-14 19:11 | PHA.VAN.IN ---
Assessment
- Assessment
Renal Function: Unknown baseline (Previous documented SCr from 2010 (~0.8-1.0))
Concomitant Antimicrobials: Piperacillin/Tazobactam
Plan
- Plan
Initial / Loading Dose: Vanco 2000mg loading dose - pending administration 11/14/24
Maintenance Regimen: Dose by level
Monitoring: Vanco random level 11/15/24 0600
Pharmacokinetics Vancomycin I
- -
Patient Age: 79
Patient Sex: Male
Vancomycin Day #: 1
Indication: Pulmonary/Respiratory
Requesting Provider: CHRISTIAN
Pertinent Antimicrobial Allergies:
No Known Drug Allergies
Height / Weight:
Height 5 ft 11 in
Actual Weight 93 kg
Pertinent Past Medical History: Solitary Kidney, renal cell cancer
- Vital Signs / Lab Results
Temp Pulse Resp BP Pulse Ox
99.6 F 126 27 85/56 90
11/14/24 15:41 11/14/24 19:00 11/14/24 19:00 11/14/24 19:00 11/14/24 19:00
Lab Results - Hematology
11/14/24
15:54
WBC 25.3 H
Band Neutrophils 8 H
Lab Results - Chemistry
11/14/24
15:54
BUN 55 H
Creatinine 1.8 H
Estimated Creat Clear 39
Albumin 3.1 L
11/14/24
15:53
Lactic Acid 4.6 H*
Lab Results - Urine
11/14/24
15:54
Urine Nitrite (Reflex) Positive A
Leukocyte Esterase Rfl 3+ A
Urine WBC (Reflex) >100 A
Ur Squamous Epith Cells 6-10
Urine Bacteria (Reflex) Many A
Microbiology Results
11/14/24 15:53 Influenza Types A & B (KOBI) - Final
Nasal Swab Negative for Influenza A & B, NAAT
Negative results must be combined with clinical observations
and patient history.
Nucleic Acid Amplification test (NAAT)performed on the
[employer] NOW platform.
[2024-11-14] MEDS: VANCOCIN 540 MG IV (19:18)
[2024-11-14] MEDS: NSS (PRESERVATIVE FREE) 20 ML IV (19:20)
[2024-11-14] MEDS: PROTONIX IV 80 MG IV (19:20)
--- NOTE | 2024-11-14 20:30 | PTCARENOTE ---
Pt with blanchable redness to sacrum and left heel. Heel foams applied to b/l heels and left foot placed back in pt's boot. Sacral foam dressing placed as well.
--- NOTE | 2024-11-14 20:37 | W.PN.UPDATE ---
Update Note
Progress Note Update
Operation/Procedure: left radial arterial line placement
Consent for operation or procedure: Emergent need due to patient condition - need for invasive monitoring per protocol
Indications: Hemodynamic monitoring
After properly positioning the patient's wrist in the standard fashion, the site was prepped and draped in a sterile fashion. The radial artery was entered, noting bright red, pulsatile flow. A guidewire was easily inserted, the needle removed,
and the catheter was then placed using the Seldinger technique. The guidewire was removed, with good flow present. The catheter was then connected to the transducer with a good waveform noted. The catheter was secured with an occlusive dressing
was placed after properly cleaning and prepping the site.
Complications: The patient tolerated the procedure well and no complications were noted.
Estimated Blood Loss: minimal
Plan: Arterial line to remain in place for hemodynamic monitoring.
[2024-11-14 20:43] LABS: INR 1.09; Lactic Acid 2.8 mmol/L (0.7-2.0); PT 14.4 Sec (11.4-14.6)
[2024-11-14 20:44] LABS: APTT 45.9 Sec (23.4-35.0)
[2024-11-14 20:56] LABS: Troponin I 0.024 ng/ml
--- NOTE | 2024-11-14 21:00 | W.PN.UPDATE ---
Update Note
Progress Note Update
Family requested update on patient's condition and overall plan of care, all questions answered. Family would like coordination of care and new [facility] placement, not happy with current rehab facility. Need help with coordinating follow up
care especially concerned that patient has not seen the specialist outpatient follow up from previous hospitalization. Family also mentioned that may not be able or capable to make decisions for the patient and they would like to use POAs
appointed. Consult placed to case management.
[2024-11-14 21:21] LABS: B.E. -7.5 mmol/L; HCO3 16.9 mmol/L (21-28); PCO2 30 mmHg (35-48); PO2 91 mmHg (83-108); pH 7.36 (7.35-7.45)
[2024-11-14 21:29] LABS: Osmolality Urine 354 mOsm/kg (300-900)
[2024-11-14 21:33] LABS: Urine Sodium 5 mmol/L (30-90)
--- NOTE | 2024-11-14 21:36 | OR.RPT ---
Operative Report
Operative Report
Operative Report
Right Internal Jugular Central venous catheter placement
Informed consent was obtained from patient's at bedside. Patient in septic shock on pressor therapy and needed central access.
Bedside ultrasound was used to confirm patency of right IJ vein. Under sterile condition area was subsequently cleaned and a full body drape was placed. 3 mL of lidocaine was injected locally for local anesthesia. Under sterile condition and with
an ultrasound probe in place, real-time long axis visualization and cannulation of IJ vein was performed until blood was aspirated. Syringe was then detached and guidewire was advanced without any resistance. With guidewire in place, needle was
withdrawn. Ultrasound was used again to confirm positioning of guidewire inside the vein lumen. A small michael was placed at the skin level and a dilator was placed to about 50% of its length. Dilator was removed and a central line catheter was
threaded over the guidewire. Once catheter inserted guidewire was removed. Caps were placed on all 3 ports of central line. Sterile flushes were used to confirm withdrawal of blood and easy flushing of all 3 ports. Central catheter was then
sutured to skin and dressing was placed.
Complications: None
Blood loss: None
Chest x-ray: Appropriate position of central line, no Pneumothorax.
Time spent: 25 min
Patient tolerated procedure well.
Date of service: 11/13/2024
[2024-11-14 22:31] LABS: Glucose - Point of Care 140 mg/dl (70-99)
[2024-11-14] MEDS: ZOSYN 50 IV (22:38)
[2024-11-14] MEDS: SUBLIMAZE 100 IV (22:59)
--- NOTE | 2024-11-15 00:16 | PTCARENOTE ---
Pt arrived to ICU room 3363 from ER via stretcher at approx 1845. Pt intubated, #7.5 ETT, AC 20/500/60/5. Pt arrived on Levophed infusion as well as Propofol at 40 mcg/kg/min. Levophed switched to Phenylephrine d/t AFib RVR, titrating to keep MAP
>65 (see med titration flowsheet). NS bolus administered and LR maintenance fluids started. Block Stacker Tyler Eugene at bedside and placed R IJ TLC, confirmed by xray and ok to use. Drips and tubing changed out before using R IJ line. Louie POOLE
at bedside and placed R radial arterial line at around 2030. Pt taken down for head CT at around 2130. Fentanyl drip initiated at around 2300 and Propofol being weaned, see med titration flowsheet for full details. See nursing shift assessment
flowsheet for full physical assessment details, midnight assessment unchanged from assessment done on admission. Pt's , daughter, and son-in-law were at bedside earlier in shift, Louie POOLE in room to speak with them and answer questions.
[2024-11-15] MEDS: HEPARIN 5000 UNITS SC ×4 (01:01→23:58)
[2024-11-15 02:03] VITALS: BMI 28.6
[2024-11-15 03:15] LABS: Hematocrit 30.9 % (39.0-52.0); Hemoglobin 10.9 g/dL (13.0-18.0); Mean Corp Hgb Conc. 35.3 g/dL (33.0-37.0); Mean Corpuscular Hgb 31.9 pg (27.0-31.0); Mean Corpuscular Volume 90.4 fL (80.0-94.0); Mean Platelet Volume 9.3 fL (7.4-10.4); Platelet Count 377 10^3/uL (130-400); Red Blood Cell Count 3.42 10^6/uL (4.70-6.10); Red Cell Dist. Width 15.9 % (11.5-14.5); White Blood Cell Count 30.5 10^3/uL (4.8-10.8)
[2024-11-15 03:21] LABS: INR 1.13; PT 14.9 Sec (11.4-14.6)
[2024-11-15 03:26] LABS: ALT (SGPT) 50 U/L (0-50); AST (SGOT) 74 U/L (17-59); Albumin 2.4 g/dl (3.5-5.0); Alkaline Phosphatase 157 U/L (38-126); Blood Urea Nitrogen 59 mg/dl (9-20); Calcium 7.7 mg/dl (8.4-10.2); Carbon Dioxide 17 mmol/L (22-30); Chloride 102 mmol/L (98-107); Estimated Creatinine Clearance 41 ml/min; Glucose 144 mg/dl (70-99); Magnesium 2.3 mg/dl (1.6-2.3); Phosphorus 4.8 mg/dl (2.5-4.5); Potassium 3.7 mmol/L (3.5-5.1); Sodium 129 mmol/L (135-145); Total Bilirubin 0.8 mg/dl (0.2-1.3); Total Protein 4.8 g/dl (6.3-8.2); eGFR 46.48
[2024-11-15 03:27] LABS: Lactic Acid 1.1 mmol/L (0.7-2.0)
[2024-11-15] MEDS: NEO-SYNEPHRINE 250 IV ×6 (03:28→23:58)
[2024-11-15 03:38] LABS: Vancomycin Random 16.8 ug/ml
[2024-11-15 03:58] LABS: TSH Reflex To Free T4 < 0.02 uIU/ml (0.47-4.68)
[2024-11-15 04:03] LABS: Troponin I 0.022 ng/ml
[2024-11-15 04:20] VITALS: BMI 29.4
[2024-11-15] MEDS: ZOSYN 50 IV ×4 (04:23→22:16)
[2024-11-15] MEDS: LR 1000 IV (04:23)
[2024-11-15 04:28] LABS: Free T4 1.87 ng/dl (0.78-2.19)
[2024-11-15 04:39] LABS: Absolute Neutrophils -Man Diff 28.9 10^3/uL (1.4-6.5); Band Neutrophils 26 % (0-3); Segmented Neutrophils 69 % (42-75)
[2024-11-15 04:40] LABS: Lymphocytes 3 % (20-51); Metamyelocytes 1 % (-); Monocytes 1 % (2-9); Platelets Checked Yes
[2024-11-15 04:41] LABS: Acanthocytes 1+; Normal RBC Morphology No; Ovalocytes 1+; Total Cells Counted 100
--- NOTE | 2024-11-15 04:52 | PTCARENOTE ---
Assessment mostly unchanged. Propofol weaned down to 10mcg/kg/min and pt now opening eyes to stimuli and to his name being called, and able to follow simple commands. Remains on Fentanyl at 50mcg/hr. Phenylephrine has needed to be titrated up
throughout the shift, see med titration flowsheet for details. ETT repositioned by RT. Pt's BP still soft with MAPs in upper 50s/low 60s. Discussed with Louie POOLE and another liter NS bolus ordered.
[2024-11-15] MEDS: NSS 1000 IV (04:53)
[2024-11-15] MEDS: DIPRIVAN 100 IV ×2 (06:03→16:01)
--- NOTE | 2024-11-15 07:38 | W.PN.HOSP.TC ---
Today's Communication/Plan
-
see plan
Assessment / Plan
Assessment / Plan
Mr. 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
intubation in the field by EMS with persistently low blood pressures post fluid requiring Levophed initiation. CXR shows right sided pneumonia; s/p OG tube with dark black/brown fluid.
HEAD CT
IMPRESSION:
No acute intracranial abnormality. Large chronic infarct in the right MCA distribution.
ct chest; abdomen/pelvis
IMPRESSION:
CHEST:
1. No CTA evidence for an acute pulmonary thromboembolism in the main or lobar pulmonary arteries. Suboptimal evaluation of the bilateral segmental and subsegmental pulmonary arteries.
2. Small bilateral pleural effusions and bilateral lower lobe compressive atelectasis.
3. Mild wall thickening of the esophagus suggesting esophagitis.
ABDOMEN/PELVIS:
1. Gallbladder distention with some fat stranding, but no appreciable choledocholithiasis by CT.
2. 2.2 cm nodule in the left nephrectomy bed, which could represent recurrent disease or an abnormal lymph node. No prior imaging of the abdomen is currently available for direct comparison.
3. Large amount of stool in the rectum may be secondary to constipation and/or fecal impaction.
4. Collapsed urinary bladder with wall thickening and a Ricks catheter in place. Recommend correlation with a urinalysis.
PLAN:
# Hypoxemic respiratory failure/sepsis (tachycardia, hypotension, leukocytosis/bandemia ) secondary to COVID pneumonia with superimposed bacterial infection
Septic shock secondary to pneumonia
-Chest x-ray shows mild opacities in the bilateral lung bases likely viral pneumonia from COVID
-resolution lactic acidosis overnight
-Blood cultures, sputum culture
-Dexamethasone 6 mg daily
-Does not qualify for remdesivir given DAO, solitary kidney
-Empiric antibiotics with vancomycin/Zosyn to cover for aspiration pneumonia
-IV phenylephrine/Vasopressin added this morning
-vent management per art museum aide
#New Onset atrial fibrillation with RVR
-Heart rate up to 140s
-improved this morning
-hold off on IV heparin gtt given possible GIB
History of renal cell carcinoma status post kidney resection
DAO
-improvement overnight with IVF
# Brown output from OG tube
-IV Protonix BID
Constipation/Fecal Impaction seen on CT
-miralax daily, may need enema
Abnormal CT with 2.2 cm nodule left nephrectomy bed
-patient will need outpatient follow up
# Acute kidney injury likely
# Solitary kidney
-IV fluids
-Hold Lasix
# Transaminitis likely secondary to COVID
-Continue to monitor
# Hyponatremia secondary to COVID
-Sodium 127 --> 129
-Monitor with IV fluids
# Urinary tract infection
-Zosyn
Recent CVA with left-sided deficit
-Bedbound at baseline
Hypothyroidism - synthroid held while NPO
Full code
DVT prophylaxis�heparin
N.p.o.
Total Critical Care Time 45 minutes. I was immediately available to the patient and staff. I personally examined, reviewed labs, diagnostic images/reports, interpretations, treatment plans, discussed patient care with other providers and family
or caregivers (if patient is unable to make decisions), entered orders as appropriate and documented the medical record.
Anticipated Discharge: > 48 hours
Subjective/Interval History
-
Date of Service: November 15, 2024
intubated, sedated
Objective Data
-
Labs:
Laboratory Results
11/14/24 11/14/24 11/15/24
20:23 21:08 03:01
WBC 30.5 H
Hgb 10.9 L
Hct 30.9 L
Plt Count 377
PT 14.4 14.9 H
INR 1.09 1.13
APTT 45.9 H
HCO3 16.9 L
Sodium 129 L
Potassium 3.7
Chloride 102
Carbon Dioxide 17 L
BUN 59 H
Creatinine 1.5 H
Glucose 144 H
Calcium 7.7 L
Total Bilirubin 0.8
AST 74 H
ALT 50
Alkaline Phosphatase 157 H
11/15/24
06:00
WBC
Hgb
Hct
Plt Count
PT
INR
APTT
HCO3 Pending
Sodium
Potassium
Chloride
Carbon Dioxide
BUN
Creatinine
Glucose
Calcium
Total Bilirubin
AST
ALT
Alkaline Phosphatase
Vital Signs:
Vital Signs
Temp Pulse Resp BP Pulse Ox
97.5 F 106 20 83/62 95
11/15/24 07:20 11/15/24 06:00 11/15/24 06:00 11/14/24 20:00 11/15/24 06:00
I&O
11/14/24 11/15/24 11/16/24
06:59 06:59 06:59
Intake Total 4392.8 / 4552.4 159.6 / 159.6
Output Total 1330 / 1330
Balance 3062.8 / 3222.4 159.6 / 159.6
Review of Systems
-
History Source: Patient
All other systems: Reviewed and negative
Physical Exam
-
General: Other (intubated)
HEENT: PERRLA
Respiratory: Negative Wheezes
Cardiac: S1/S2 and Irregular Rhythm
Skin: Warm and Dry; Negative Rash
Neuro: Sedated
Psych: Calm
Data Reviewed
-
Diagnostic Radiology: Report Reviewed by me
Labs: Labs Reviewed by me
--- NOTE | 2024-11-15 07:45 | W.PN.INTV ---
Today's Communication / Plan
Recommendations
-Add vasopressin as phenylephrine nearly maxed out
-Discontinue maintenance IV fluids, significant positive fluid balance
-Follow-up ABG and labs today at 2 PM and then again in the morning
-Daily chest x-ray
-Hold off tube feeding
-Increase PEEP to 8 as patient seems ot have increased atelectasis on CXR
Assessment
-
In brief patient has a history of renal cell carcinoma status post solitary kidney and was reportedly diagnosed with COVID at a [facility] about 5 days ago. It is unclear but he probably was on Paxlovid there and per he was more short of
breath today and for increasing shortness of breath, EMS was called and patient was noted to be hypoxic and hypotensive. He was emergently intubated in the field and was brought to the emergency room. Patient was noted to be hypotensive despite IV
fluids and was started on Levophed. Subsequently a chest x-ray was performed which was suggestive of right-sided pneumonia and patient was started on broad-spectrum antibiotics. Patient was felt to have distended abdomen in the emergency room, an
OG tube was placed and dark black/brown effluent was noted concerning for question GI bleed.
Patient is being admitted to the ICU for shock as well as respiratory failure with acute kidney injury. Griddle Attendant consult was requested for further input.
Last 24 hrs:
-Fluid balance, +3.1 L
-Hemoglobin 10.9, down from 12 yesterday, suspect related to dilution
-WBC elevated at 30,000
-Sodium improved to 129, creatinine improving to 1.5
-Lactate downtrending most recent 1.1
#1. Acute hypoxic respiratory failure. Recent diagnosis of COVID-19
-R>L basal infiltrates vs atelectasis noted on imaging, aspiration pneumonia and superimposed bacterial pneumonia also in differential
-CT images are not typical of COVID-19 pneumonia
-No PE noted on CT
-Continue dexamethasone with vancomycin and zosyn
-Patient is in acute kidney injury and also has solitary kidney with prior diagnosis of renal cell carcinoma, will avoid Remdesivir
-Continue ventilatory support, follow-up ABG, titrate FiO2 as needed
-Sedation with Propofol and Fentanyl
-f/u CXR with increased atelectasis vs PNE, increase PEEP to 8
#2. Shock, suspect septic shock. Differential diagnosis include pneumonia as well as UTI considering patient has significant WBCs in the urine
-Blood cultures, urine cultures
-Continue broad-spectrum antibiotics, vancomycin and zosyn
-ECHO pending, serial troponin unremarkable
-Off Levophed in view of RVR, near max on Phenylephrine, add Vasopressin
#3. Atrial fibrillation with rapid ventricular rate.
-Unclear if it is new versus patient has prior history
-s/p IV fluid resuscitation
-Continue vasopressor, phenylephrine as needed
-If patient becomes increasingly hemodynamically unstable, will start amiodarone versus emergent cardioversion
-Patient has recent history of stroke, will hold off on anticoagulation until GI bleed ruled out
-ECHO pending
-TSH very low, likely need to decrease thyroxine dose a bit. Currently on hold
#4. Acute kidney injury, (currently solitary kidney) prior history of renal cell carcinoma status post nephrectomy per patient's spouse at bedside
-Avoid hypotension, keep MAP greater than 65
-s/p IVF resuscitation
-Vasopressors as needed to keep adequate perfusion
-Strict input and output
-Follow labs closely
-making urine, improving renal function
#5. Dark brown/black output from OG tube, ? Concern for upper GI bleed
-Avoid antiplatelets and heparin infusion
-IV PPI 80 mg bolus followed by 40 every 12
-Keep hemoglobin above 7
-Serial labs
#6. History of hypothyroidism
-Hold levothyroxine while n.p.o.
#7. Hyponatremia.
-Likely hypovolemic hyponatremia
-Urine sodium 5, consistent with pre-renal etiology
DVT prophylaxis: s.c. Heparin
GI prophylaxis: IV pantoprazole
Critical Care time 35 mins -- The patient is admitted for acute critical illness for the treatment of vital organ failure and/or prevention of further life-threatening conditions. Total care includes time spent in review of history, physical exam,
medications, hemodynamic/ventilator parameters, laboratory data, imaging and discussion with house staff, pharmacy, respiratory therapy, it solutions sales consultant, and nursing.
DATA:
CHEST:
1. No CTA evidence for an acute pulmonary thromboembolism in the main or lobar pulmonary arteries. Suboptimal evaluation of the bilateral segmental and subsegmental pulmonary arteries.
2. Small bilateral pleural effusions and bilateral lower lobe compressive atelectasis.
3. Mild wall thickening of the esophagus suggesting esophagitis.
ABDOMEN/PELVIS:
1. Gallbladder distention with some fat stranding, but no appreciable choledocholithiasis by CT.
2. 2.2 cm nodule in the left nephrectomy bed, which could represent recurrent disease or an abnormal lymph node. No prior imaging of the abdomen is currently available for direct comparison.
3. Large amount of stool in the rectum may be secondary to constipation and/or fecal impaction.
4. Collapsed urinary bladder with wall thickening and a Ricks catheter in place. Recommend correlation with a urinalysis.
Subjective Dataa
Subjective Data
Date of Service:
Date of Service: November 15, 2024
Objective Data
Data Reviewed
Vital Signs / I&O / Oxygen:
Vital Signs
Temp Pulse Resp BP Pulse Ox
97.5 F 106 20 83/62 95
11/15/24 07:20 11/15/24 06:00 11/15/24 06:00 11/14/24 20:00 11/15/24 06:00
Intake and Output
11/14/24 11/15/24 11/16/24
06:59 06:59 06:59
Intake Total 4392.8 / 4552.4 159.6 / 159.6
Output Total 1330 / 1330
Balance 3062.8 / 3222.4 159.6 / 159.6
SaO2 [A/C] 94
SaO2 95
Labs/Micro/Reports
Lab Data
11/15/24 03:01
11/15/24 03:01
Laboratory Results
11/14/24 11/14/24 11/14/24
15:45 15:53 20:23
PT 14.3 14.4
INR 1.08 1.09
APTT 48.1 H 45.9 H
pH 7.34 L Cancelled
pCO2 33 L Cancelled
pO2 84 Cancelled
HCO3 17.8 L Cancelled
O2 Delivery Level Cancelled
11/14/24 11/15/24 11/15/24
21:08 03:01 06:00
PT 14.9 H
INR 1.13
APTT
pH 7.36 Cancelled
pCO2 30 L Cancelled
pO2 91 Cancelled
HCO3 16.9 L Cancelled
O2 Delivery Level Cancelled
Microbiology
11/14/24 15:53 Nasal Swab Influenza Types A & B (KOBI) - Final
Negative for Influenza A & B, NAAT
Negative results must be combined with clinical observations
and patient history.
Nucleic Acid Amplification test (NAAT)performed on the
[employer] platform.
[2024-11-15] MEDS: PITRESSIN 100 IV ×2 (08:07→16:01)
[2024-11-15] MEDS: PROTONIX IV 40 MG IV ×2 (08:10→19:58)
[2024-11-15] MEDS: NSS (PRESERVATIVE FREE) 10 ML IV ×2 (08:10→19:59)
[2024-11-15] MEDS: MIRALAX 17 GRAMS TUBE (08:10)
[2024-11-15 08:29] LABS: B.E. -6.9 mmol/L; HCO3 16.9 mmol/L (21-28); PCO2 28 mmHg (35-48); PO2 153 mmHg (83-108); pH 7.39 (7.35-7.45)
--- NOTE | 2024-11-15 08:29 | PHA.VAN.FU ---
Vancomycin Assessment / Plan
- Assessment
Renal Function: SCR Decreasing
WBC's are: Trending Up
In the past 24 hrs, patient has been: Afebrile
Concomitant Antimicrobials: ZOSYN
- Assessment - Therapeutic Drug Monitoring
Random Level: 16.8
- Dosing Plan
Dosing by Level: Hold off on dosing today
- Monitoring Plan
Random Level: 11/16 IN AM
- Follow Up
Pharmacy will continue to follow.
Vancomycin Follow UP
- -
Patient Age: 79
Patient Sex: Male
Vancomycin Day #: 2
Indication: Pulmonary/Respiratory
Requesting Provider: CHRISTIAN
Pertinent Antimicrobial Allergies:
No Known Drug Allergies
Height / Weight:
Height 5 ft 11 in
Actual Weight 95.6 kg
Pertinent Past Medical History: Solitary Kidney, renal cell cancer
- Vital Signs / Lab Results
Temp Pulse Resp BP Pulse Ox
97.5 F 106 20 83/62 95
11/15/24 07:20 11/15/24 06:00 11/15/24 06:00 11/14/24 20:00 11/15/24 06:00
Lab Results - Hematology
11/14/24 11/15/24
15:54 03:01
WBC 25.3 H 30.5 H
Band Neutrophils 8 H 26 H D
Lab Results - Chemistry
11/14/24 11/15/24
15:54 03:01
BUN 55 H 59 H
Creatinine 1.8 H 1.5 H
Estimated Creat Clear 39 41
Albumin 3.1 L 2.4 L
11/14/24 11/14/24 11/15/24
15:53 20:23 03:01
Lactic Acid 4.6 H* 2.8 H 1.1
Lab Results - Urine
11/14/24
15:54
Urine Nitrite (Reflex) Positive A
Leukocyte Esterase Rfl 3+ A
Ur Squamous Epith Cells 6-10
Microbiology Results
11/14/24 15:53 Influenza Types A & B (KOBI) - Final
Nasal Swab Negative for Influenza A & B, NAAT
Negative results must be combined with clinical observations
and patient history.
Nucleic Acid Amplification test (NAAT)performed on the
[employer] platform.
Therapeutic Drug Monitoring
Random Vancomycin 16.8 ug/ml 11/15/24 03:01
--- NOTE | 2024-11-15 08:51 | PTCARENOTE ---
pt received from previous rn- ett to vent- see settings as charted. plan of care discussed with Dr. Eugene- vaso started, ivf d/c. labs sent per order. pt turned and repositioned, oral care provided. propofol off for sedation vacation- opens eyes to
name, follows simple commands, nods yes and no appropriately. per Dr. Eugene no SBT today. cannot move left side- previous stroke. afib with pvcs on monitor- kat continues with vaso- left radial kodak zeroed and functioning. all safety precautions
in place.
[2024-11-15 09:25] VITALS: BMI 29.4
--- NOTE | 2024-11-15 09:29 | CM ---
Addendum entered by Opal Rayo 11/15/24 09:49:
PT/OT assessment pending; CM will send notes to SNF referrals when available
Original Note:
Initial assessment completed via phone with daughter/POAMarlene # [phone]
Patient admitted to from [facility]
Per daughter, patient had a stroke in June 2024; alert and oriented; 2 person assist and requires total care; unable to ambulate; mobilized via Wheelchair
Acute Rehab stays at [facility]; followed by multiple SNF admissions
Family in the process of submitting [employer] [facility] applications to [facility] and [facility]; does not want to return to [facility]
SNF preferences: [facility] and [facility]; referrals sent via [facility]
Transport: Ambulance; Pharmacy: unknown at this time; depends on which SNF accepts referral
Plan: discharge to SNF when medically stable
[2024-11-15] MEDS: LEVOPHED 250 IV (11:25)
[2024-11-15] MEDS: LR 500 IV (11:26)
--- NOTE | 2024-11-15 11:40 | PTCARENOTE ---
pt maxed on kat and vaso- pt bp systolic 90s and maps low 60s- Dr. Eugene aware fluid bolus infusing as per order, levo started. and daughter at bedside- educated and verbalized understanding. assessment unchanged further.
[2024-11-15] MEDS: SUBLIMAZE 50 MCG IV (12:22)
[2024-11-15 13:24] LABS: B.E. -7.3 mmol/L; HCO3 16.3 mmol/L (21-28); PCO2 27 mmHg (35-48); PO2 130 mmHg (83-108); pH 7.39 (7.35-7.45)
[2024-11-15 13:35] LABS: Hematocrit 30.1 % (39.0-52.0); Hemoglobin 10.7 g/dL (13.0-18.0); Mean Corp Hgb Conc. 35.5 g/dL (33.0-37.0); Mean Corpuscular Hgb 31.8 pg (27.0-31.0); Mean Corpuscular Volume 89.6 fL (80.0-94.0); Mean Platelet Volume 9.3 fL (7.4-10.4); Platelet Count 380 10^3/uL (130-400); Red Blood Cell Count 3.36 10^6/uL (4.70-6.10); Red Cell Dist. Width 15.9 % (11.5-14.5); White Blood Cell Count 32.2 10^3/uL (4.8-10.8)
[2024-11-15 13:39] LABS: Lactic Acid 0.9 mmol/L (0.7-2.0)
[2024-11-15 13:42] LABS: Glycohemoglobin (HgbA1c) 6.2 % (4.0-5.6)
[2024-11-15 13:45] LABS: Blood Urea Nitrogen 54 mg/dl (9-20); Calcium 7.5 mg/dl (8.4-10.2); Carbon Dioxide 15 mmol/L (22-30); Chloride 105 mmol/L (98-107); Estimated Creatinine Clearance 44 ml/min; Glucose 143 mg/dl (70-99); Potassium 3.9 mmol/L (3.5-5.1); Sodium 129 mmol/L (135-145); eGFR 50.49
--- NOTE | 2024-11-15 13:48 | CON.ID ---
Consultation
-
Date/Time Consultation Requested: 11/15/2024 1104
Date/Time Consultation Performed: 11/15/2024 1300
Requesting Provider: Dr. Wilcox
Performing Provider: Dr. Ontiveros
Reason for Consultation: Clinical sepsis
Chief Complaint / Past History
History of Present Illness
Berry Staley is an 79-year-old male being evaluated at the request of Dr. Wilcox regarding clinical sepsis. History is obtained from chart review, along with history obtained from the patient's daughter who is at the bedside.
The patient sustained a CVA in late June 2024. He was taken to [facility] and was an inpatient for approximately 1 week. Thereafter, he was discharged to [facility] [place], where he was for approximately 2 weeks, and
then ultimately discharged to [facility] where he remained for approximately 2 months. 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
(possibly chronic) and underwent neurosurgical intervention. Thereafter, he was discharged to [facility] rehab where he remained for 2 weeks and then sent to [facility] where he had been for approximately 3 weeks.
Approximately 5 days ago he was diagnosed with COVID-19 following the development of some respiratory symptomatology. He had been on Paxlovid, but yesterday he developed increasing respiratory insufficiency acutely. EMS was called and found him to
be hypoxic and was intubated en route to [facility].
Admission workup revealed a marked leukocytosis, the patient was found to be in DAO, with a mild lactic acidosis. Since admission, he has remained vent dependent, and has had increasing pressor requirements (now on 3 pressors). He has been placed
on empiric broad-spectrum antibiotics, and Infectious Diseases is asked to comment upon further antimicrobial therapy.
Past History
Additional Past Medical History:
Hx of CVA (06/2024)
Hx renal cell carcinoma
Hypothyroidism
Additional Past Surgical History:
Left nephrectomy (2021)
Allergy History:
No Known Allergies Allergy (Verified 08/14/18 08:23)
Medications Reviewed: Yes
Current Antibiotics:
Zosyn 3.375 g IV every 6 hours
Vancomycin (dosing per pharmacy)
Cefepime (DC'd)
Social History
Tobacco: Former Smoker
Alcohol: None
Drug: None
Personal:
Living: With Family
Employment: Retired
Family History
Family History: Not Pertinent
Review of Systems
Vital Signs
Temp Pulse Resp BP Pulse Ox
97.5 F 109 20 83/62 94
11/15/24 07:20 11/15/24 12:00 11/15/24 12:00 11/14/24 20:00 11/15/24 12:00
Physical Exam
Physical Exam
Constitutional: Acutely Ill and Toxic
Head: Normocephalic
Eyes: No Conjunctival Hemorrhage and Sclera Anicteric
Oral: Other (ET tube in place.)
Cardiovascular: Regular Rate and S1/S2; Negative S3/S4
Pulmonary: Coarse and Other (On ventilator); Negative Wheezes or Rales
Gastrointestinal: Soft, Distended, Decreased Bowel Sounds, No Rebound and No Guarding
Genito-Urinary: Ricks and Clear Urine
Extremities: Negative Edema, Cyanosis or Erythema
Neurological: Other (Unresponsive on vent. Sedated)
.
Lab / Diagnostic Study Results
11/15/24 13:16
11/15/24 13:16
Total Counted 100 11/15/24 03:01
Abs Neuts (Manual) 28.9 10^3/uL (1.4-6.5) H 11/15/24 03:01
Segmented Neutrophils 69 % (42-75) 11/15/24 03:01
Band Neutrophils 26 % (0-3) H D 11/15/24 03:01
Lymphocytes (Manual) 3 % (20-51) L 11/15/24 03:01
PT 14.9 Sec (11.4-14.6) H 11/15/24 03:01
INR 1.13 11/15/24 03:01
Lactic Acid 0.9 mmol/L (0.7-2.0) 11/15/24 13:16
Ur Squamous Epith Cells 6-10 /LPF (Few) 11/14/24 15:54
Microbiology Results
Micro:
11/14/24 15:54 Urine Culture - Preliminary
Urine
11/14/24 23:45 Respiratory Culture - Pending
Sputum Gram Stain - Preliminary
11/15/24 03:01 MRSA Screen - Pending
Nose
11/14/24 15:53 Blood Culture - Pending
Blood/Venous
11/14/24 15:53 Influenza Types A & B (KOBI) - Final
Nasal Swab Negative for Influenza A & B, NAAT
Negative results must be combined with clinical observations
and patient history.
Nucleic Acid Amplification test (NAAT)performed on the
[employer] platform.
11/14/24 16:03 Blood Culture - Pending
Blood/Venous
Imaging:
11/14/2024 CT C/A/P: No filling defects in the main or lobar pulmonary arteries to indicate acute PE. Heart is normal in size without pericardial effusion. Small bilateral pleural effusions are noted. There is compressive atelectasis in the
posterior aspect of the bilateral lower lobes. No focal consolidation, pleural effusion or pneumothorax is seen. ET tube is present with tip in the mid thoracic trachea. The liver, spleen, bile ducts, pancreas and adrenal glands are unremarkable.
The gallbladder is distended and shows mild fat stranding. No cholelithiasis is seen. No hydronephrosis noted. Surgically absent left kidney. A 2.2 cm nodule in the left retroperitoneum in the region of the left nephrectomy bed with peripheral
soft tissue attenuation and central low-attenuation is noted. No bowel wall thickening is noted. No obstruction or inflammation seen. A large amount of stool is in the rectum. Please see full dictation for additional detail. Film personally
viewed.
Assessment / Plan
Leukocytosis
VDRF
Clinical sepsis
COVID-19
Hyponatremia
DAO
Lactic acidosis; improved
Pyuria/bacteriuria
Hx of CVA (06/2024)
Hx renal cell carcinoma
Hypothyroidism
Recommendations:
At present, the driving force behind the patient's ongoing hypotension is unclear, but would not attribute it to prior COVID although there may be a component of this.
Continue with broad-spectrum empiric antibiotics (Zosyn, vancomycin) for possible bacterial superinfection.
Would hold on initiation of remdesivir at this time. Patient had been on Paxlovid prior, but now in DAO and relatively outside of window where remdesivir would be efficacious.
May consider tocilizumab if patient continues to do poorly.
Check C. diff if diarrhea develops.
Repeat blood cultures for temperature greater than 100.5 degrees
Continue with pressor support to keep MAP greater >= 65
Follow Vanco level closely to prevent nephrotoxicity.
Dexamethasone has been initiated.
Monitor white count and temperature curve.
Prognosis currently guarded. Patient remains critically ill on pressor therapy and vent dependent in ICU.
Care Review
Plan reviewed with: Physician (Critical Care)
[2024-11-15] MEDS: DECADRON 6 MG IV (16:02)
[2024-11-15] MEDS: SUBLIMAZE 100 IV (16:02)
[2024-11-15] MEDS: TYLENOL 650 MG TUBE (16:21)
--- NOTE | 2024-11-15 16:41 | PTCARENOTE ---
pt diaphoretic- rectal temp 100.7- Tylenol given as per order. turned and repositioned, pt assessment unchanged. all gtts continue as per order.
--- NOTE | 2024-11-15 19:50 | PTCARENOTE ---
Assumed care of pt at 1900. Received pt intubated, #7.5 ETT 24cm at lip, AC 20/500/50/8. Received pt on Propofol, Fentanyl, Phenylephrine, Vasopressin, and Levophed infusions. See med titration flowsheets for details on titration of meds. Pt awakens
to voice or light tactile stimuli, is able to follow simple commands and shake/nod head appropriately. AFib low 100s-110s on monitor with occasional PVCs. SpO2 96-97% on current vent settings. See nursing shift assessment flowsheet for full physical
assessment details.
--- NOTE | 2024-11-16 01:57 | PTCARENOTE ---
Midnight assessment unchanged. Remains on same vent settings and same infusions.
[2024-11-16] MEDS: PITRESSIN 100 IV (02:51)
[2024-11-16] MEDS: DIPRIVAN 100 IV ×2 (04:26→16:14)
[2024-11-16] MEDS: ZOSYN 50 IV ×4 (04:27→21:28)
[2024-11-16] MEDS: NEO-SYNEPHRINE 250 IV ×4 (04:31→22:01)
[2024-11-16 04:54] LABS: HCO3 16.2 mmol/L (21-28); PCO2 25 mmHg (35-48); PO2 116 mmHg (83-108); pH 7.42 (7.35-7.45)
[2024-11-16 04:57] VITALS: BMI 30.7
[2024-11-16 05:20] LABS: INR 1.13; PT 14.8 Sec (11.4-14.6)
[2024-11-16 05:23] LABS: Hematocrit 28.3 % (39.0-52.0); Hemoglobin 10.2 g/dL (13.0-18.0); Mean Corpuscular Hgb 32.2 pg (27.0-31.0); Mean Corpuscular Volume 89.3 fL (80.0-94.0); Mean Platelet Volume 9.2 fL (7.4-10.4); Platelet Count 330 10^3/uL (130-400); Red Blood Cell Count 3.17 10^6/uL (4.70-6.10); Red Cell Dist. Width 15.9 % (11.5-14.5)
[2024-11-16 05:27] LABS: ALT (SGPT) 44 U/L (0-50); AST (SGOT) 63 U/L (17-59); Albumin 2.3 g/dl (3.5-5.0); Alkaline Phosphatase 167 U/L (38-126); Blood Urea Nitrogen 49 mg/dl (9-20); Calcium 7.6 mg/dl (8.4-10.2); Carbon Dioxide 15 mmol/L (22-30); Chloride 107 mmol/L (98-107); Estimated Creatinine Clearance 63 ml/min; Glucose 149 mg/dl (70-99); Magnesium 2.3 mg/dl (1.6-2.3); Potassium 3.8 mmol/L (3.5-5.1); Sodium 132 mmol/L (135-145); Total Bilirubin 0.6 mg/dl (0.2-1.3); Total Protein 4.7 g/dl (6.3-8.2); eGFR > 60.00
[2024-11-16 05:50] LABS: Vancomycin Random 7.2 ug/ml
--- NOTE | 2024-11-16 06:33 | PTCARENOTE ---
0400 assessment unchanged. Pt has been more awake this shift, RASS -1 mostly, remains on Propofol at 10mcg/kg/min and Fentanyl at 50mcg/hr. Phenylephrine weaned down to 120mcg/min and pt remains on Vasopressin as well. FiO2 weaned to 40%. Full bath
done and all linens changed.
[2024-11-16 07:48] LABS: Absolute Neutrophils -Man Diff 28.8 10^3/uL (1.4-6.5); Band Neutrophils 12 % (0-3); Lymphocytes 3 % (20-51); Monocytes 2 % (2-9); Myelocytes 2 % (-); Segmented Neutrophils 81 % (42-75)
[2024-11-16 07:49] LABS: Anisocytosis 1+; Macrocytosis 2+; Normal RBC Morphology No; Platelets Checked Yes
[2024-11-16 07:50] LABS: Acanthocytes 1+; Ovalocytes Slight; Poikilocytosis 1+; Total Cells Counted 100
--- NOTE | 2024-11-16 07:51 | W.PN.INTV ---
Today's Communication / Plan
Recommendations
-Chest x-ray and ABG in a.m.
-Continue PEEP of 8, continue to wean pressors as tolerated
-Start tube feeding
-Start heparin drip and monitor for sign or symptom of GI bleeding
-SAT SBT in a.m. if pressor requirement continues to go down
Assessment
-
In brief patient has a history of renal cell carcinoma status post solitary kidney and was reportedly diagnosed with COVID at a skilled nursing about 5 days ago. It is unclear but he probably was on Paxlovid there and per he was more short of
breath today and for increasing shortness of breath, EMS was called and patient was noted to be hypoxic and hypotensive. He was emergently intubated in the field and was brought to the emergency room. Patient was noted to be hypotensive despite IV
fluids and was started on Levophed. Subsequently a chest x-ray was performed which was suggestive of right-sided pneumonia and patient was started on broad-spectrum antibiotics. Patient was felt to have distended abdomen in the emergency room, an
OG tube was placed and dark black/brown effluent was noted concerning for question GI bleed.
Patient is being admitted to the ICU for shock as well as respiratory failure with acute kidney injury. Chief Engineer Production consult was requested for further input.
Last 24 hrs:
-Fluid balance, +1.3 Ltr
-Hemoglobin stable at 10.2, WBC count essentially unchanged at 31,000
-INR 1.13
-Sodium further improved 232, BUN/creatinine improved to 49/1.1
-Lactate downtrending most recent 0.9
-Current drips, phenylephrine and vasopressin. Off Levophed now. Fentanyl and propofol for sedation
#1. Acute hypoxic respiratory failure. Recent diagnosis of COVID-19
-R>L basal infiltrates vs atelectasis noted on imaging, aspiration pneumonia and superimposed bacterial pneumonia also in differential
-CT images are not typical of COVID-19 pneumonia
-No PE noted on CT
-Continue dexamethasone with vancomycin and zosyn
-Patient had acute kidney injury on admission and also has solitary kidney with prior diagnosis of renal cell carcinoma, will avoid Remdesivir
-Continue ventilatory support, ABG 7.42, 25, 116 on volume AC, 500 by 18 x 40% x 8
-Sedation with Propofol and Fentanyl
-Due to body habitus, PEEP was increased to 8, with better aeration on today's chest x-ray
#2. Shock, suspect septic shock. Differential diagnosis include pneumonia as well as UTI considering patient has significant WBCs in the urine
-Blood cultures negative so far. Urine culture showing gram-negative bacilli, MRSA screen positive
-Continue broad-spectrum antibiotics, vancomycin and zosyn, ID service on case
-ECHO pending, serial troponin unremarkable
-In view of A-fib with RVR, patient on phenylephrine and vasopressin with Levophed added after 2 pressors were maxed out
#3. Atrial fibrillation with rapid ventricular rate.
-Unclear if it is new versus patient has prior history
-s/p IV fluid resuscitation
-Continue phenylephrine and vasopressin. Levophed as third agent
-If patient becomes increasingly hemodynamically unstable, will start amiodarone versus emergent cardioversion
-Patient has recent history of stroke, CT head showing large chronic infarct in the right MCA distribution
-ECHO pending
-TSH very low, likely need to decrease thyroxine dose a bit going forward. Currently on hold
#4. Acute kidney injury, (currently solitary kidney) prior history of renal cell carcinoma status post nephrectomy per patient's spouse at bedside
-Continues to improve with IV fluid resuscitation
-avoid hypotension, keep MAP greater than 65
-Vasopressors as needed to keep adequate perfusion
-Strict input and output
-Follow labs closely
#5. Dark brown/black output from OG tube, ? Concern for upper GI bleed
-IV PPI 80 mg bolus followed by 40 every 12
-Hemoglobin has stayed fairly stable without any evidence of active bleeding
-Start heparin in view of underlying A-fib with RVR and prior history of stroke
-If any signs or symptoms of bleeding noted, will consult GI service for possible EGD
#6. History of hypothyroidism
-Hold levothyroxine while n.p.o.
-TSH quite suppressed, likely will resume at a lower dose when able to take p.o.
#7. Hyponatremia.
-Hypovolemic hyponatremia, improving with IV fluid resuscitation
-Urine sodium 5, consistent with pre-renal etiology
DVT prophylaxis: Heparin drip now
GI prophylaxis: IV pantoprazole
Start tube feeding
Critical Care time 33 mins -- The patient is admitted for acute critical illness for the treatment of vital organ failure and/or prevention of further life-threatening conditions. Total care includes time spent in review of history, physical exam,
medications, hemodynamic/ventilator parameters, laboratory data, imaging and discussion with house staff, pharmacy, respiratory therapy, scalping machine operator, and nursing.
DATA:
CHEST:
1. No CTA evidence for an acute pulmonary thromboembolism in the main or lobar pulmonary arteries. Suboptimal evaluation of the bilateral segmental and subsegmental pulmonary arteries.
2. Small bilateral pleural effusions and bilateral lower lobe compressive atelectasis.
3. Mild wall thickening of the esophagus suggesting esophagitis.
ABDOMEN/PELVIS:
1. Gallbladder distention with some fat stranding, but no appreciable choledocholithiasis by CT.
2. 2.2 cm nodule in the left nephrectomy bed, which could represent recurrent disease or an abnormal lymph node. No prior imaging of the abdomen is currently available for direct comparison.
3. Large amount of stool in the rectum may be secondary to constipation and/or fecal impaction.
4. Collapsed urinary bladder with wall thickening and a Ricks catheter in place. Recommend correlation with a urinalysis.
Subjective Dataa
Subjective Data
Date of Service:
Date of Service: November 16, 2024
Subjective:
Patient currently intubated, mechanically ventilated and sedated.
Review of Systems
General: Unobtainable - Sedation
Objective Data
Data Reviewed
Vital Signs / I&O / Oxygen:
Vital Signs
Temp Pulse Resp BP Pulse Ox
98.5 F 101 20 83/62 97
11/16/24 07:00 11/16/24 06:00 11/16/24 06:00 11/14/24 20:00 11/16/24 06:00
Intake and Output
11/15/24 11/16/24 11/17/24
06:59 06:59 06:59
Intake Total 4392.8 / 4552.4 2808.2 / 2863.8 55.6 / 55.6
Output Total 1330 / 1330 1355 / 1355
Balance 3062.8 / 3222.4 1453.2 / 1508.8 55.6 / 55.6
SaO2 [A/C] 98
SaO2 97
Physical Exam
General: Comfortable
HEENT: Normocephalic
Cardiovascular: S1-S2
Respiratory: Clear and Non-Labored Respirations
GI: Soft and Non Distended
Skin: Warm
Labs/Micro/Reports
Lab Data
11/16/24 04:37
11/16/24 04:37
Laboratory Results
11/15/24 11/15/24 11/16/24
08:19 13:16 04:37
PT 14.8 H
INR 1.13
pH 7.39 7.39 7.42
pCO2 28 L 27 L 25 L
pO2 153 H 130 H 116 H
HCO3 16.9 L 16.3 L 16.2 L
O2 Delivery Level
Microbiology
11/14/24 16:03 Blood/Venous Blood Culture - Preliminary
No Growth in 24 hours- Final report to follow
11/14/24 15:53 Blood/Venous Blood Culture - Preliminary
No Growth in 24 hours- Final report to follow
11/14/24 15:54 Urine Urine Culture - Preliminary
11/14/24 23:45 Sputum Gram Stain - Preliminary
11/14/24 15:53 Nasal Swab Influenza Types A & B (KOBI) - Final
Negative for Influenza A & B, NAAT
Negative results must be combined with clinical observations
and patient history.
Nucleic Acid Amplification test (NAAT)performed on the
[employer] platform.
--- NOTE | 2024-11-16 07:53 | W.PN.HOSP.TC ---
Addendum entered and electronically signed by Nancy Wilcox MD 11/16/24 09:15:
discussed with Dr. Eugene, given Hg stable will start IV heparin gtt for new afib
start without bolus given receiving DVT PPx subQ
Original Note:
Today's Communication/Plan
-
wean pressors as able
IV Vanc/Zosyn
IV Decadron
vent management per Rn Urology
appreciate Rn Urology and ID
Assessment / Plan
Assessment / Plan
Mr. 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
intubation in the field by EMS with persistently low blood pressures post fluid requiring Levophed initiation. CXR shows right sided pneumonia; s/p OG tube with dark black/brown fluid.
HEAD CT
IMPRESSION:
No acute intracranial abnormality. Large chronic infarct in the right MCA distribution.
ct chest; abdomen/pelvis
IMPRESSION:
CHEST:
1. No CTA evidence for an acute pulmonary thromboembolism in the main or lobar pulmonary arteries. Suboptimal evaluation of the bilateral segmental and subsegmental pulmonary arteries.
2. Small bilateral pleural effusions and bilateral lower lobe compressive atelectasis.
3. Mild wall thickening of the esophagus suggesting esophagitis.
ABDOMEN/PELVIS:
1. Gallbladder distention with some fat stranding, but no appreciable choledocholithiasis by CT.
2. 2.2 cm nodule in the left nephrectomy bed, which could represent recurrent disease or an abnormal lymph node. No prior imaging of the abdomen is currently available for direct comparison.
3. Large amount of stool in the rectum may be secondary to constipation and/or fecal impaction.
4. Collapsed urinary bladder with wall thickening and a Ricks catheter in place. Recommend correlation with a urinalysis.
PLAN:
# Hypoxemic respiratory failure/sepsis (tachycardia, hypotension, leukocytosis/bandemia ) secondary to COVID pneumonia with superimposed bacterial infection
Septic shock secondary to pneumonia
-Chest x-ray shows mild opacities in the bilateral lung bases likely viral pneumonia from COVID
-resolution lactic acidosis overnight
-Blood cultures, sputum culture
-Dexamethasone 6 mg daily
-Does not qualify for remdesivir given DAO, solitary kidney
-Empiric antibiotics with vancomycin/Zosyn to cover superimposed pneumonia
-required 3 pressors on 11/15; now off Levophed; weaning down phenylephrine; remains on vasopressin
-vent management per target worker
#New Onset atrial fibrillation with RVR
-Heart rate up to 140s
-improved this morning
-hold off on IV heparin gtt given possible GIB
History of renal cell carcinoma status post kidney resection
DAO
-improvement overnight with IVF
-resolved this AM
# Brown output from OG tube
-IV Protonix BID
Constipation/Fecal Impaction seen on CT
-miralax daily, may need enema
Abnormal CT with 2.2 cm nodule left nephrectomy bed
-patient will need outpatient follow up
Heart Failure preserved EF
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
# Transaminitis likely secondary to COVID
-Continue to monitor
# Hyponatremia secondary to COVID
-improved up to 132 this AM
# possible Urinary tract infection
-Zosyn
Recent CVA with left-sided deficit
-Bedbound at baseline
Hypothyroidism - synthroid held while NPO
Full code
DVT prophylaxis�heparin
N.p.o.
Total Critical Care Time 45 minutes. I was immediately available to the patient and staff. I personally examined, reviewed labs, diagnostic images/reports, interpretations, treatment plans, discussed patient care with other providers and family
or caregivers (if patient is unable to make decisions), entered orders as appropriate and documented the medical record.
Anticipated Discharge: > 48 hours
Subjective/Interval History
-
Date of Service: November 16, 2024
intubated, awake/alert
denies pain
Objective Data
-
Labs:
Laboratory Results
11/16/24
04:37
WBC 31.0 H
Hgb 10.2 L
Hct 28.3 L
Plt Count 330
PT 14.8 H
INR 1.13
HCO3 16.2 L
Sodium 132 L
Potassium 3.8
Chloride 107
Carbon Dioxide 15 L
BUN 49 H
Creatinine 1.1
Glucose 149 H
Calcium 7.6 L
Total Bilirubin 0.6
AST 63 H
ALT 44
Alkaline Phosphatase 167 H
Vital Signs:
Vital Signs
Temp Pulse Resp BP Pulse Ox
98.5 F 101 20 83/62 97
11/16/24 07:00 11/16/24 06:00 11/16/24 06:00 11/14/24 20:00 11/16/24 06:00
I&O
11/15/24 11/16/24 11/17/24
06:59 06:59 06:59
Intake Total 4392.8 / 4552.4 2808.2 / 2863.8 55.6 / 55.6
Output Total 1330 / 1330 1355 / 1355
Balance 3062.8 / 3222.4 1453.2 / 1508.8 55.6 / 55.6
Review of Systems
-
History Source: Patient
All other systems: Reviewed and negative
Physical Exam
-
General: Other (intubated)
HEENT: PERRLA
Respiratory: Negative Wheezes
Cardiac: S1/S2 and Irregular Rhythm
Musculoskeletal: No Edema
Skin: Warm and Dry; Negative Rash
Neuro: Awake, Alert and Other (can answer yes or no questions, follows commands)
Psych: Calm
--- NOTE | 2024-11-16 08:06 | PHA.VAN.FU ---
Vancomycin Assessment / Plan
- Assessment
Renal Function: SCR Decreasing
WBC's are: Stable
In the past 24 hrs, patient has been: Febrile (100.6F)
Concomitant Antimicrobials: ZOSYN
- Assessment - Therapeutic Drug Monitoring
Random Level: 7.2
- Dosing Plan
Dosing by Level: Re-dose today (1500MG)
BUN STILL ELEVATED
- Monitoring Plan
Random Level: 11/17 IN AM
- Follow Up
Pharmacy will continue to follow.
Vancomycin Follow UP
- -
Patient Age: 79
Patient Sex: Male
Vancomycin Day #: 3
Indication: Pulmonary/Respiratory
Requesting Provider: CHRISTIAN
Pertinent Antimicrobial Allergies:
No Known Drug Allergies
Height / Weight:
Height 5 ft 11 in
Actual Weight 99.7 kg
Pertinent Past Medical History: Solitary Kidney, renal cell cancer
- Vital Signs / Lab Results
Temp Pulse Resp BP Pulse Ox
98.5 F 101 20 83/62 97
11/16/24 07:00 11/16/24 06:00 11/16/24 06:00 11/14/24 20:00 11/16/24 06:00
Lab Results - Hematology
11/14/24 11/15/24 11/15/24
15:54 03:01 13:16
WBC 25.3 H 30.5 H 32.2 H
Band Neutrophils 8 H 26 H D
11/16/24
04:37
WBC 31.0 H
Band Neutrophils 12 H D
Lab Results - Chemistry
11/14/24 11/15/24 11/15/24
15:54 03:01 13:16
BUN 55 H 59 H 54 H
Creatinine 1.8 H 1.5 H 1.4 H
Estimated Creat Clear 39 41 44
Albumin 3.1 L 2.4 L
11/16/24
04:37
BUN 49 H
Creatinine 1.1
Estimated Creat Clear 63
Albumin 2.3 L
11/14/24 11/14/24 11/15/24
15:53 20:23 03:01
Lactic Acid 4.6 H* 2.8 H 1.1
11/15/24
13:16
Lactic Acid 0.9
Microbiology Results
11/14/24 16:03 Blood Culture - Preliminary
Blood/Venous No Growth in 24 hours- Final report to follow
11/14/24 15:53 Blood Culture - Preliminary
Blood/Venous No Growth in 24 hours- Final report to follow
11/14/24 15:54 Urine Culture - Preliminary
Urine
11/14/24 23:45 Gram Stain - Preliminary
Sputum
11/14/24 15:53 Influenza Types A & B (KOBI) - Final
Nasal Swab Negative for Influenza A & B, NAAT
Negative results must be combined with clinical observations
and patient history.
Nucleic Acid Amplification test (NAAT)performed on the
[employer] platform.
Therapeutic Drug Monitoring
Random Vancomycin 7.2 ug/ml 11/16/24 04:37
[2024-11-16] MEDS: NSS (PRESERVATIVE FREE) 10 ML IV ×2 (08:13→19:23)
[2024-11-16] MEDS: PROTONIX IV 40 MG IV ×2 (08:13→19:23)
[2024-11-16] MEDS: HEPARIN 5000 UNITS SC (08:14)
[2024-11-16] MEDS: MIRALAX 17 GRAMS TUBE (08:14)
[2024-11-16] MEDS: VANCOCIN 530 MG IV (08:17)
--- NOTE | 2024-11-16 08:24 | W.PN.ID1 ---
Date of Service
Date of Service: November 16, 2024
Today's Communication
Continue current antibiotics.
Assessment / Plan
Leukocytosis
-In addition to underlying process, also steroid effect.
VDRF
Clinical sepsis
COVID-19
Hyponatremia
DAO
Lactic acidosis; improved
Pyuria/bacteriuria
Hx of CVA (06/2024)
Hx renal cell carcinoma
Hypothyroidism
Recommendations:
At present, the driving force behind the patient's ongoing hypotension is unclear, but would not completely attribute it to COVID although there may be a component of this.
Continue with broad-spectrum empiric antibiotics (Zosyn, vancomycin) for possible bacterial superinfection.
Would hold on initiation of remdesivir at this time. Patient had been on Paxlovid prior, but now in DAO and relatively outside of window where remdesivir would be efficacious.
May consider tocilizumab if patient continues to do poorly, although pressors being weaned at present.
Check C. diff if diarrhea develops.
Repeat blood cultures for temperature greater than 100.5 degrees
Continue with pressor support to keep MAP greater >= 65
Follow Vanco level closely to prevent nephrotoxicity.
Dexamethasone has been initiated.
Monitor white count and temperature curve.
Prognosis currently guarded. Patient remains critically ill on pressor therapy and vent dependent in ICU.
����������������������������������������������������������
Chief Complaint
-: Leukocytosis, Clinical Sepsis and Other (COVID-19)
Subjective / Review of Systems
Patient seen and examined. Remains on vent at this time. Pressors being weaned. Temp recorded overnight to 100.6, although was a rectal temperature.
Vital Signs / Physical Exam
Vital Signs
Vital Signs
Temp Pulse Resp BP Pulse Ox
98.5 F 101 20 83/62 97
11/16/24 07:00 11/16/24 06:00 11/16/24 06:00 11/14/24 20:00 11/16/24 06:00
Physical Exam
Constitutional: Acutely Ill, Chronically Ill and Non-toxic
Eyes: Pupils Equal, Pupils Round, No Conjunctival Hemorrhage and Sclera Anicteric
Cardiovascular: Regular Rate and S1/S2; Negative S3/S4
Pulmonary: Clear and Other (ET tube to vent.); Negative Wheezes or Rales
Gastrointestinal: Soft, Distended, Decreased Bowel Sounds, No Rebound and No Guarding
Extremities: Edema; Negative Cyanosis or Erythema
Skin: Negative Rash or Jaundice
Neurological: Awake
Psychological: Calm
Objective Data
Lab Data
Lab Results
11/16/24 04:37
11/16/24 04:37
PT 14.8 Sec (11.4-14.6) H 11/16/24 04:37
INR 1.13 11/16/24 04:37
APTT 45.9 Sec (23.4-35.0) H 11/14/24 20:23
Estimated Creat Clear 63 ml/min 11/16/24 04:37
Lactic Acid 0.9 mmol/L (0.7-2.0) 11/15/24 13:16
Total Bilirubin 0.6 mg/dl (0.2-1.3) 11/16/24 04:37
AST 63 U/L (17-59) H 11/16/24 04:37
ALT 44 U/L (0-50) 11/16/24 04:37
Alkaline Phosphatase 167 U/L (38-126) H 11/16/24 04:37
Most recent labs reviewed.
Micro Results:
11/14/24 16:03 Blood Culture - Preliminary
Blood/Venous No Growth in 24 hours- Final report to follow
11/14/24 15:53 Blood Culture - Preliminary
Blood/Venous No Growth in 24 hours- Final report to follow
11/14/24 15:54 Urine Culture - Preliminary
Urine
11/14/24 23:45 Respiratory Culture - Pending
Sputum Gram Stain - Preliminary
11/15/24 03:01 MRSA Screen - Pending
Nose
11/14/24 15:53 Influenza Types A & B (KOBI) - Final
Nasal Swab Negative for Influenza A & B, NAAT
Negative results must be combined with clinical observations
and patient history.
Nucleic Acid Amplification test (NAAT)performed on the
[employer] platform.
Imaging:
11/14/2024 CT C/A/P: No filling defects in the main or lobar pulmonary arteries to indicate acute PE. Heart is normal in size without pericardial effusion. Small bilateral pleural effusions are noted. There is compressive atelectasis in the
posterior aspect of the bilateral lower lobes. No focal consolidation, pleural effusion or pneumothorax is seen. ET tube is present with tip in the mid thoracic trachea. The liver, spleen, bile ducts, pancreas and adrenal glands are unremarkable.
The gallbladder is distended and shows mild fat stranding. No cholelithiasis is seen. No hydronephrosis noted. Surgically absent left kidney. A 2.2 cm nodule in the left retroperitoneum in the region of the left nephrectomy bed with peripheral
soft tissue attenuation and central low-attenuation is noted. No bowel wall thickening is noted. No obstruction or inflammation seen. A large amount of stool is in the rectum. Please see full dictation for additional detail. Film personally
viewed.
Care Review
Plan reviewed with: Nurse and Physician (Critical Care)
--- NOTE | 2024-11-16 08:53 | PTCARENOTE ---
pt received from previous rn- ett to vent- see settings as charted. alert and calm rass 0 on propofol and fent, nods yes and no appropriately, follows simple commands. unable to move left side due to previous stroke. left radial kodak zeroed and
functioning. in afib with pvcs. kat and vaso continue- weaning pressors as tolerated. ogt with minimal output. turned and repositioned, oral care provided. plan of care discussed with Dr. Eugene. all care explained as provided to patient. safety
precautions in place
[2024-11-16 10:04] LABS: APTT 68.9 Sec (23.4-35.0)
[2024-11-16] MEDS: HEPARIN 25000 UNITS/250 ML IV (10:12)
[2024-11-16] MEDS: SUBLIMAZE 100 IV (12:10)
[2024-11-16] MEDS: SUBLIMAZE 50 MCG IV ×3 (12:12→20:08)
--- NOTE | 2024-11-16 12:32 | PTCARENOTE ---
pt assessment unchanged. Dr. Eugene ordered tf- jevity 1.5 started at 10cc/hr with 25 water flush. pt turned and repositioned. remains off vaso, kat continues.
[2024-11-16] MEDS: DECADRON 6 MG IV (16:14)
[2024-11-16 17:03] LABS: APTT > 200 Sec (23.4-35.0)
--- NOTE | 2024-11-16 17:16 | PTCARENOTE ---
pt noted to have right shoulder and arm twitching- Dr. Eugene aware- no new orders. heparin gtt on hold per ptt result per protocol- Dr. Wilcox notified. and daughter at bedside- updated. pt turned and repositioned, remains in afib. assessment
unchanged further.
--- NOTE | 2024-11-16 20:00 | PTCARENOTE ---
Patient received in bed, intubated and sedated on Propofol and fentanyl gtts. right wrist restrained. Flaccid on left. Awakens easily, commands followed. Afib on monitor, distal pulses by doppler.Neo_synephrine gtt as documented. #7.5 ETT
repositioned to 22 cm to the right , tolerating AC 18 TV 500 FIO2 40% Peep 8, lungs coarse, large amount of oral secretions. OG tube in placed, advanced per documented marking, jevity 1.5 infusing as ordered. Obese abdomen, hypoactive bowel
sounds. Ricks catheter draining monroe urine with sediment. Foam dressings maintained. RIJ TLC with Propofol, Fentanyl, Christos-Synephrine and heparin gtts infusing as documented. PIVs x3 flushed and patent. Turned and repositioned
--- NOTE | 2024-11-17 00:09 | PTCARENOTE ---
Patient reassessed, no changes in assessment
[2024-11-17] MEDS: DIPRIVAN 100 IV ×4 (00:41→23:52)
[2024-11-17 01:23] LABS: APTT > 200 Sec (23.4-35.0)
[2024-11-17] MEDS: SUBLIMAZE 50 MCG IV (02:25)
--- NOTE | 2024-11-17 03:07 | PTCARENOTE ---
Patient given CHG bath, linens changed, turned and repositioned
[2024-11-17] MEDS: ZOSYN 50 IV ×4 (03:44→21:42)
[2024-11-17] MEDS: NEO-SYNEPHRINE 250 IV ×2 (03:45→17:17)
[2024-11-17 03:47] LABS: B.E. -5.9 mmol/L; HCO3 17.3 mmol/L (21-28); PCO2 26 mmHg (35-48); PO2 120 mmHg (83-108); pH 7.43 (7.35-7.45)
[2024-11-17 04:04] LABS: Hematocrit 28.1 % (39.0-52.0); Hemoglobin 9.7 g/dL (13.0-18.0); Mean Corp Hgb Conc. 34.5 g/dL (33.0-37.0); Mean Corpuscular Volume 89.8 fL (80.0-94.0); Mean Platelet Volume 9.1 fL (7.4-10.4); Platelet Count 358 10^3/uL (130-400); Red Blood Cell Count 3.13 10^6/uL (4.70-6.10); Red Cell Dist. Width 16.2 % (11.5-14.5); White Blood Cell Count 30.6 10^3/uL (4.8-10.8)
[2024-11-17 05:09] LABS: Vancomycin Random 11.7 ug/ml
[2024-11-17 05:19] VITALS: BMI 30.9
[2024-11-17 05:25] LABS: ALT (SGPT) 40 U/L (0-50); AST (SGOT) 60 U/L (17-59); Albumin 2.4 g/dl (3.5-5.0); Alkaline Phosphatase 154 U/L (38-126); Blood Urea Nitrogen 39 mg/dl (9-20); Carbon Dioxide 14 mmol/L (22-30); Chloride 112 mmol/L (98-107); Estimated Creatinine Clearance 70 ml/min; Glucose 127 mg/dl (70-99); Magnesium 2.3 mg/dl (1.6-2.3); Potassium 3.1 mmol/L (3.5-5.1); Sodium 135 mmol/L (135-145); Total Bilirubin 0.5 mg/dl (0.2-1.3); Total Protein 4.6 g/dl (6.3-8.2); Triglycerides 113 mg/dl (10-149); eGFR > 60.00
[2024-11-17] MEDS: KCL ELIXIR 40 MEQ TUBE (06:19)
[2024-11-17] MEDS: KCL 100 IV (06:19)
[2024-11-17] MEDS: SODIUM BICARBONATE 1150 MEQ IV ×2 (06:30→21:42)
--- NOTE | 2024-11-17 06:34 | PTCARENOTE ---
labs noted, orders received
[2024-11-17 07:06] LABS: % Basophils 0.4 % (0-2); % Immature Granulocytes 8.5 % (0-0.5); % Lymphocytes 1.7 % (20.5-51.1); % Monocytes 3.7 % (1.7-9.3); % Neutrophils 85.7 % (42.2-75.2); Absolute Basophils 0.1 10^3/uL (0-0.2); Absolute Immature Granulocytes 2.6 10^3/uL (0-0.05); Absolute Lymphocytes 0.5 10^3/uL (1.2-3.4); Absolute Monocytes 1.1 10^3/uL (0.1-0.6); Absolute Neutrophils 26.3 10^3/uL (1.4-6.5); Nucleated Red Blood Cells % 0 % (-)
[2024-11-17] MEDS: SUBLIMAZE 100 IV (07:47)
[2024-11-17] MEDS: MIRALAX 17 GRAMS TUBE (07:50)
[2024-11-17] MEDS: NSS (PRESERVATIVE FREE) 10 ML IV ×2 (07:51→19:48)
[2024-11-17] MEDS: PROTONIX IV 40 MG IV ×2 (07:51→19:48)
--- NOTE | 2024-11-17 07:54 | W.PN.HOSP.TC ---
Addendum entered and electronically signed by Nancy Wilcox MD 11/17/24 15:39:
Daughter, Marlene, updated
reviewed 2.2 nodule with daughter in law who is an RN - this seems to be a known finding
Addendum entered and electronically signed by Nancy Wilcox MD 11/17/24 15:06:
Severe Protein Calorie Malnutrition
-appreciate dietary
Addendum entered and electronically signed by Nancy Wilcox MD 11/17/24 11:49:
chronic HFpEF - monitor volume status closely
Hypokalemia - repleted this morning
Original Note:
Today's Communication/Plan
-
weaning pressors
SAT/SBT per cancer registry manager
Decadron
Vanc/Zosyn
supp followed by enema if inffective
IV Heparin gtt
TTE today
Decrease synthroid dose - to start tomorrow
Assessment / Plan
Assessment / Plan
Mr. 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
intubation in the field by EMS with persistently low blood pressures post fluid requiring Levophed initiation. CXR shows right sided pneumonia; s/p OG tube with dark black/brown fluid. He was admitted for septic shock 2/2 COVID with superimposed
bacterial infection, new atrial fibrillation, no e/o active GI bleed.
HEAD CT
IMPRESSION:
No acute intracranial abnormality. Large chronic infarct in the right MCA distribution.
ct chest; abdomen/pelvis
IMPRESSION:
CHEST:
1. No CTA evidence for an acute pulmonary thromboembolism in the main or lobar pulmonary arteries. Suboptimal evaluation of the bilateral segmental and subsegmental pulmonary arteries.
2. Small bilateral pleural effusions and bilateral lower lobe compressive atelectasis.
3. Mild wall thickening of the esophagus suggesting esophagitis.
ABDOMEN/PELVIS:
1. Gallbladder distention with some fat stranding, but no appreciable choledocholithiasis by CT.
2. 2.2 cm nodule in the left nephrectomy bed, which could represent recurrent disease or an abnormal lymph node. No prior imaging of the abdomen is currently available for direct comparison.
3. Large amount of stool in the rectum may be secondary to constipation and/or fecal impaction.
4. Collapsed urinary bladder with wall thickening and a Ricks catheter in place. Recommend correlation with a urinalysis.
PLAN:
# Hypoxemic respiratory failure/sepsis (tachycardia, hypotension, leukocytosis/bandemia ) secondary to COVID pneumonia with superimposed bacterial infection
Septic shock secondary to pneumonia
-Chest x-ray shows mild opacities in the bilateral lung bases likely viral pneumonia from COVID
-resolution lactic acidosis overnight
-Blood cultures, sputum culture (no growth); thick secretions this morning 11/17 - repeat sputum culture
-MRSA screen is positive
-Dexamethasone 6 mg daily
-Does not qualify for remdesivir given DAO, solitary kidney
-Empiric antibiotics with vancomycin/Zosyn to cover superimposed pneumonia
-required 3 pressors on 11/15; now off Levophed and off Vasopressin; weaning down phenylephrine
-vent management per cancer registry manager
-appreciate Greenhouse Laborer and ID consults
-TF started
#New Onset atrial fibrillation with RVR
-Heart rate up to 140s on admit, now improved
-IV Heparin gtt initiated (Hg stable)
-TTE today
-decrease Synthroid dosing when resume (see below))
Hypothyroidism - Synthroid held while NPO
-His TSH was < 0.02 on admit
-will resume Synthroid at lower dose (start tomorrow)
-will need follow up TFT's
History of renal cell carcinoma status post kidney resection
DAO
Metabolic Acidosis - non-gap morning 11/17
-DAO resolved; non-solomon metabolic acidosis this AM
-sodium bicarb fluids initiated - will lower rate
Brown output from OG tube
-IV Protonix BID
-hg has been stable; IV Heparin gtt initiated on 11/16 for Afib (high risk with hx CVA)
-may have been vomiting in setting of constipation (see below)
-consult GI if any signs of bleeding
Constipation/Fecal Impaction seen on CT
-miralax daily
-one BM 11/15
-order suppository now with enema PRN this afternoon if suppository ineffective
Abnormal CT with 2.2 cm nodule left nephrectomy bed
-patient will need outpatient follow up
Heart Failure preserved EF
-hold FINAL OPERATIONS TECHNICIAN Lasix 40mg PO QD
# Transaminitis likely secondary to COVID
-Continue to monitor
# Hyponatremia secondary to COVID
-improved up to 132 this AM
# possible Urinary tract infection
-Zosyn
Recent CVA with left-sided deficit
-Bedbound at baseline
Full code
DVT prophylaxis�heparin
TF started
Total Critical Care Time 45 minutes. I was immediately available to the patient and staff. I personally examined, reviewed labs, diagnostic images/reports, interpretations, treatment plans, discussed patient care with other providers and family
or caregivers (if patient is unable to make decisions), entered orders as appropriate and documented the medical record.
Anticipated Discharge: > 48 hours
Subjective/Interval History
-
Date of Service: November 17, 2024
intubated, able to be woken up
Objective Data
-
Labs:
Laboratory Results
11/17/24 11/17/24 11/17/24
00:51 03:39 09:30
WBC 30.6 H
Hgb 9.7 L
Hct 28.1 L
Plt Count 358
APTT > 200 H* Pending
HCO3 17.3 L
Sodium 135
Potassium 3.1 L
Chloride 112 H
Carbon Dioxide 14 L*
BUN 39 H
Creatinine 1.0
Glucose 127 H
Calcium 7.0 L
Total Bilirubin 0.5
AST 60 H
ALT 40
Alkaline Phosphatase 154 H
Vital Signs:
Vital Signs
Temp Pulse Resp BP Pulse Ox
98.4 F 106 18 83/62 99
11/17/24 07:26 11/16/24 22:00 11/16/24 22:00 11/14/24 20:00 11/17/24 04:00
I&O
11/16/24 11/17/24 11/18/24
06:59 06:59 06:59
Intake Total 2808.2 / 2863.8 2880.4 / 2880.4
Output Total 1355 / 1355 1050 / 1050
Balance 1453.2 / 1508.8 1830.4 / 1830.4
Review of Systems
-
History Source: Patient
Physical Exam
-
General: Other (intubated)
HEENT: PERRLA
Respiratory: Negative Wheezes
Cardiac: S1/S2 and Irregular Rhythm
Musculoskeletal: No Edema
Skin: Warm and Dry; Negative Rash
Neuro: Awake, Alert and Other (can answer yes or no questions, follows commands)
Psych: Calm
Data Reviewed
-
Diagnostic Radiology: Report Reviewed by me
Labs: Labs Reviewed by me
--- NOTE | 2024-11-17 08:16 | W.PN.INTV ---
Today's Communication / Plan
Recommendations
Start diuresis
Heart rate control � consider starting amiodarone drip with goal HR <110
Consult cardiology
Continue tube feeds
Trend BMP to assure K is >4, Mg >2
Continue heparin drip
RASS goal 0 to -2
Hopefully can do an SBT tomorrow with plans to extubate to BiPAP
Continue ICU level care for this critically ill patient
Assessment
-
In brief patient has a history of renal cell carcinoma status post solitary kidney and was reportedly diagnosed with COVID at a jail about 5 days ago. It is unclear but he probably was on Paxlovid there and per he was more short of
breath today and for increasing shortness of breath, EMS was called and patient was noted to be hypoxic and hypotensive. He was emergently intubated in the field and was brought to the emergency room. Patient was noted to be hypotensive despite IV
fluids and was started on Levophed. Subsequently a chest x-ray was performed which was suggestive of right-sided pneumonia and patient was started on broad-spectrum antibiotics. Patient was felt to have distended abdomen in the emergency room, an
OG tube was placed and dark black/brown effluent was noted concerning for question GI bleed.
Patient is being admitted to the ICU for shock as well as respiratory failure with acute kidney injury. Sight Mounter consult was requested for further input.
#1. Acute hypoxic respiratory failure. Recent diagnosis of COVID-19. Suspect due to pneumonia (aspiration) in the setting of acute decompensated heart failure
-R>L basal infiltrates vs atelectasis noted on imaging, aspiration pneumonia and superimposed bacterial pneumonia also in differential
-CT images are not typical of COVID-19 pneumonia
-No PE noted on CT
-Continue dexamethasone with vancomycin and zosyn
-Patient had acute kidney injury on admission and also has solitary kidney with prior diagnosis of renal cell carcinoma, will avoid Remdesivir
-Continue ventilatory support with daily SAT/SBT's � hold off on extubation today as feel there is component of volume overload given bilateral pleural effusions on CT A/P from 11/14/2024 and suspected pulmonary edema on CXR today
-Lightly sedated with goal RASS 0 to -2
-Due to body habitus, PEEP was increased to 8, with better aeration on chest x-ray
#2. Shock, suspect septic shock. Differential diagnosis include pneumonia as well as UTI considering patient has significant WBCs in the urine + UCx grew E. coli
-Blood cultures negative so far. Urine culture grew E coli, MRSA screen positive
-Continue broad-spectrum antibiotics, vancomycin and zosyn, ID service on case
-ECHO being performed this AM --> follow up results, serial troponin unremarkable
-In view of A-fib with RVR, patient on phenylephrine; now off Levophed + vasopressin
#3. Atrial fibrillation with rapid ventricular rate.
-Unclear if it is new versus prior history
-Continue heparin gtt
-Consult cardiology
-s/p IV fluid resuscitation
-Continue phenylephrine
-Rate control with goal <110
-May need to start amio gtt
-Patient has recent history of stroke, CT head from 11/14/2024 showed large chronic infarct in the right MCA distribution
-ECHO pending
-TSH undetectable low with normal free T4; levothyroxine lowered from 200 mcg to 175 mcg; trend TSH in next few days
#4. Acute kidney injury, (currently solitary kidney) prior history of renal cell carcinoma status post nephrectomy per patient's spouse at bedside
- Continue to trend sCr and UOP
-s/p IVF resuscitation
-avoid hypotension, keep MAP greater than 65-70 to keep adequate perfusion
-Strict input and output
-Follow labs closely
- Of note he has a chronic lester
#5. Dark brown/black output from OG tube, ? Concern for upper GI bleed
-IV PPI 80 mg bolus followed by 40 every 12
- Tolerating TF
- Continue heparin gtt
-Hemoglobin has stayed fairly stable without any evidence of active bleeding
-Continue heparin gtt in view of underlying A-fib with RVR and prior history of stroke
-If any signs or symptoms of bleeding noted, will consult GI service for possible EGD
#6. History of hypothyroidism
-As stated above ---> TSH undetectable low with normal free T4; levothyroxine lowered from 200 mcg to 175 mcg; trend TSH in next few days
#7. Hyponatremia - improving
-Hypovolemic hypochloremic, hyponatremia ---> improved with IV fluid resuscitation
-Urine sodium 5, consistent with pre-renal etiology
-Hold off on any additional IVF --> starting diuresis today with lasix 40mg IV daily (proBNP was 3460 on 11/14/2024)
DVT prophylaxis: Heparin drip
GI prophylaxis: IV pantoprazole
Continue tube feeds
Continue ICU level care for this critically ill patient
Critical care statement: A total of 41 minutes of critical care time was provided for this patient today. This includes management of unstable vital signs, evaluation of the patient at bedside, reviewing the patient's pertinent medical records
including radiographs, microbiology, laboratory evaluations, and discussion with primary team, consultants, pharmacy, nutrition, physical therapy, case management, charge nurse, critical care nursing, and respiratory therapy.
DATA:
CHEST:
1. No CTA evidence for an acute pulmonary thromboembolism in the main or lobar pulmonary arteries. Suboptimal evaluation of the bilateral segmental and subsegmental pulmonary arteries.
2. Small bilateral pleural effusions and bilateral lower lobe compressive atelectasis.
3. Mild wall thickening of the esophagus suggesting esophagitis.
ABDOMEN/PELVIS:
1. Gallbladder distention with some fat stranding, but no appreciable choledocholithiasis by CT.
2. 2.2 cm nodule in the left nephrectomy bed, which could represent recurrent disease or an abnormal lymph node. No prior imaging of the abdomen is currently available for direct comparison.
3. Large amount of stool in the rectum may be secondary to constipation and/or fecal impaction.
4. Collapsed urinary bladder with wall thickening and a Lester catheter in place. Recommend correlation with a urinalysis.
Subjective Dataa
Subjective Data
Date of Service:
Date of Service: November 17, 2024
Chief Complaint: Sight Mounter Follow Up
Subjective:
Patient seen and evaluated this morning. He was getting an echo this morning. Remains intubated on AC/CMV at 18/500/8/40% with peak pressure 24, VTe 471 cc and breathing at 18 breaths/min. ETT with moderate secretions. Currently on propofol at
20 mcg/kg/min, fentanyl at 50 mcg/hr and Christos-Synephrine at 120 mcg/min. Also on heparin drip. Heart rate 123, BP via A-line: 115/66 and saturating 95%.
Review of Systems
General: Unobtainable - Sedation (+ Intubated)
Objective Data
Data Reviewed
Vital Signs / I&O / Oxygen:
Vital Signs
Temp Pulse Resp BP Pulse Ox
98.4 F 119 18 83/62 97
11/17/24 07:26 11/17/24 08:00 11/17/24 08:00 11/14/24 20:00 11/17/24 08:08
Intake and Output
11/16/24 11/17/24 11/18/24
06:59 06:59 06:59
Intake Total 2808.2 / 2863.8 2880.4 / 3085.1 401.9 / 401.9
Output Total 1355 / 1355 1050 / 1150 100 / 100
Balance 1453.2 / 1508.8 1830.4 / 1935.1 301.9 / 301.9
SaO2 [A/C] 97
SaO2 97
Physical Exam
General: Respiratory Distress (negative), Chills (negative) and Sweats (negative)
HEENT: Normocephalic, Anicteric and Other (ETT in place)
Cardiovascular: Irregular Rhythm (Irregularly irregular), Peripheral Edema (negative) and Other (Tachycardic)
Respiratory: Wheeze (negative), Rhonchi (negative), Stridor (negative) and ET Tube (Mechanical breath sounds heard bilaterally)
GI: Soft, Non Distended, Non Tender and Normal Bowel Sounds
Neurology: Other (Sedated)
Skin: Warm, Dry, Cyanosis (negative) and Jaundice (negative)
Labs/Micro/Reports
Lab Data
11/17/24 03:39
11/17/24 03:39
Laboratory Results
11/16/24 11/16/24 11/17/24
09:39 16:26 00:51
APTT 68.9 H > 200 H* > 200 H*
pH
pCO2
pO2
HCO3
O2 Delivery Level
11/17/24
03:39
APTT
pH 7.43
pCO2 26 L
pO2 120 H
HCO3 17.3 L
O2 Delivery Level
Microbiology
11/14/24 16:03 Blood/Venous Blood Culture - Preliminary
No Growth in 48 hours- Final report to follow
11/14/24 15:53 Blood/Venous Blood Culture - Preliminary
No Growth in 48 hours- Final report to follow
11/14/24 23:45 Sputum Respiratory Culture - Preliminary
Usual Respiratory Marjan
11/14/24 23:45 Sputum Gram Stain - Preliminary
11/14/24 15:54 Urine Urine Culture - Preliminary
Gram negative bacilli
11/15/24 03:01 Nose MRSA Screen - Final
Staph aureus MRSA
11/14/24 15:53 Nasal Swab Influenza Types A & B (KOBI) - Final
Negative for Influenza A & B, NAAT
Negative results must be combined with clinical observations
and patient history.
Nucleic Acid Amplification test (NAAT)performed on the
[employer] platform.
--- NOTE | 2024-11-17 08:49 | PTCARENOTE ---
Received pt with eyes closed.Eyes open to voice.Pt nods/shakes head appropriately to questions.Denies pain.Left upper and lower extremities flaccid.Follows commands consistently.A Fib noted.Left Mary Beth intact and at mid axillary level.Right IJ TLCC
intact with Fentanyl,Propofol,Phenylephrine,Heparin gtts and K Moshe.Bicarb gtt infusing peripherally.ETT to vent.Coarse breath sounds throughout.Suctioned frequently for moderate amount thick anthony secretions.POX 98%OGT [place] intact with tube
feedings.No BM.Bowel medications ordered by physician.Ricks draining monroe urine.Plan of care discussed with pt.Echocardiogram is ongoing.
--- NOTE | 2024-11-17 09:46 | W.PN.ID1 ---
Addendum entered and electronically signed by Akhil Ontiveros DO 11/17/24 16:47:
I saw and evaluated the patient. I reviewed the resident�s note and agree with findings and plan as documented in the resident�s note.
Patient remains critically ill in intensive care unit. Remains on vent at this time.
Pressors being weaned; currently only on phenylephrine at present.
Cultures only positive for E. coli from the urine.
Discontinue further vancomycin. Continue empiric Zosyn for today.
Original Note:
Date of Service
Date of Service: November 17, 2024
Today's Communication
continue antibiotics
Assessment / Plan
Leukocytosis
-In addition to underlying process, also steroid effect.
VDRF
Clinical sepsis
COVID-19
Hyponatremia
- improved/resolved
DAO
Lactic acidosis; improved
Pyuria/bacteriuria
Hx of CVA (06/2024)
Hx renal cell carcinoma
Hypothyroidism
Recommendations:
At present, the driving force behind the patient's ongoing hypotension is unclear, but would not completely attribute it to COVID although there may be a component of this.
Continue Zosyn for possible bacterial superinfection.
Discontinue vancomycin.
Would hold on initiation of remdesivir at this time. Patient had been on Paxlovid prior, but now in DAO and relatively outside of window where remdesivir would be efficacious.
May consider tocilizumab if patient continues to do poorly, although pressors being weaned at present.
Check C. diff if diarrhea develops.
Repeat blood cultures for temperature greater than 100.5 degrees
Continue with pressor support to keep MAP greater >= 65
Dexamethasone has been initiated.
Monitor white count and temperature curve.
Prognosis currently guarded. Patient remains critically ill on pressor therapy and vent dependent in ICU.
����������������������������������������������������������
Chief Complaint
-: Leukocytosis, Clinical Sepsis and Other (COVID-19)
Vital Signs / Physical Exam
Vital Signs
Vital Signs
Temp Pulse Resp BP Pulse Ox
98.4 F 119 18 83/62 97
11/17/24 07:26 11/17/24 08:00 11/17/24 08:00 11/14/24 20:00 11/17/24 08:08
Physical Exam
Constitutional: Acutely Ill and Non-toxic
Head: Normocephalic
Cardiovascular: Irregular Rate and S1/S2
Pulmonary: Other (ET tube to vent ); Negative Wheezes or Rales
Gastrointestinal: Soft and Non Distended
Genito-Urinary: Ricks
Skin: Warm and Dry
Neurological: Other (intubated )
Objective Data
Lab Data
Lab Results
11/17/24 03:39
11/17/24 03:39
PT 14.8 Sec (11.4-14.6) H 11/16/24 04:37
INR 1.13 11/16/24 04:37
APTT > 200 Sec (23.4-35.0) H* 11/17/24 00:51
Estimated Creat Clear 70 ml/min 11/17/24 03:39
Lactic Acid 0.9 mmol/L (0.7-2.0) 11/15/24 13:16
Total Bilirubin 0.5 mg/dl (0.2-1.3) 11/17/24 03:39
AST 60 U/L (17-59) H 11/17/24 03:39
ALT 40 U/L (0-50) 11/17/24 03:39
Alkaline Phosphatase 154 U/L (38-126) H 11/17/24 03:39
Most recent labs reviewed.
Micro Results:
11/14/24 15:54 Urine Culture - Preliminary
Urine Gram negative bacilli
11/14/24 16:03 Blood Culture - Preliminary
Blood/Venous No Growth in 48 hours- Final report to follow
11/14/24 15:53 Blood Culture - Preliminary
Blood/Venous No Growth in 48 hours- Final report to follow
11/14/24 23:45 Respiratory Culture - Preliminary
Sputum Usual Respiratory Marjan
Gram Stain - Preliminary
11/15/24 03:01 MRSA Screen - Final
Nose Staph aureus MRSA
11/14/24 15:53 Influenza Types A & B (KOBI) - Final
Nasal Swab Negative for Influenza A & B, NAAT
Negative results must be combined with clinical observations
and patient history.
Nucleic Acid Amplification test (NAAT)performed on the
[employer] platform.
Imaging:
11/14/2024 CT C/A/P: No filling defects in the main or lobar pulmonary arteries to indicate acute PE. Heart is normal in size without pericardial effusion. Small bilateral pleural effusions are noted. There is compressive atelectasis in the
posterior aspect of the bilateral lower lobes. No focal consolidation, pleural effusion or pneumothorax is seen. ET tube is present with tip in the mid thoracic trachea. The liver, spleen, bile ducts, pancreas and adrenal glands are unremarkable.
The gallbladder is distended and shows mild fat stranding. No cholelithiasis is seen. No hydronephrosis noted. Surgically absent left kidney. A 2.2 cm nodule in the left retroperitoneum in the region of the left nephrectomy bed with peripheral
soft tissue attenuation and central low-attenuation is noted. No bowel wall thickening is noted. No obstruction or inflammation seen. A large amount of stool is in the rectum. Please see full dictation for additional detail. Film personally
viewed.
[2024-11-17] MEDS: DULCOLAX 10 MG RECTAL (09:52)
--- NOTE | 2024-11-17 10:07 | PHA.VAN.FU ---
Vancomycin Assessment / Plan
- Assessment
Renal Function: SCR Decreasing
WBC's are: Stable
In the past 24 hrs, patient has been: Afebrile
Concomitant Antimicrobials: piperacillin/tazobactam
- Assessment - Therapeutic Drug Monitoring
Random Level: 11.7 - drawn ~19H after previous dose of 1500mg
- Dosing Plan
Dosing by Level: Re-dose today (Vanc 1500mg)
SCR improved but BUN improving more slowly
Patient with accumulation with once daily dosing - will keep as once daily dose for now
Will keep dosing consistent to evaluate trend
- Monitoring Plan
Random Level: 11/18 599
- Follow Up
Pharmacy will continue to follow.
Vancomycin Follow UP
- -
Patient Age: 79
Patient Sex: Male
Vancomycin Day #: 4
Indication: Pulmonary/Respiratory
Requesting Provider: Dr. Eugene / [place]
Pertinent Antimicrobial Allergies:
No Known Drug Allergies
Height / Weight:
Height 5 ft 11 in
Actual Weight 100.3 kg
Pertinent Past Medical History: RCC (s/p nephrectomy)
- Vital Signs / Lab Results
Temp Pulse Resp BP Pulse Ox
98.4 F 119 18 83/62 97
11/17/24 07:26 11/17/24 08:00 11/17/24 08:00 11/14/24 20:00 11/17/24 08:08
Lab Results - Hematology
11/14/24 11/15/24 11/15/24
15:54 03:01 13:16
WBC 25.3 H 30.5 H 32.2 H
Band Neutrophils 8 H 26 H D
11/16/24 11/17/24
04:37 03:39
WBC 31.0 H 30.6 H
Band Neutrophils 12 H D
Lab Results - Chemistry
11/14/24 11/15/24 11/15/24
15:54 03:01 13:16
BUN 55 H 59 H 54 H
Creatinine 1.8 H 1.5 H 1.4 H
Estimated Creat Clear 39 41 44
Albumin 3.1 L 2.4 L
11/16/24 11/17/24
04:37 03:39
BUN 49 H 39 H
Creatinine 1.1 1.0
Estimated Creat Clear 63 70
Albumin 2.3 L 2.4 L
11/14/24 11/14/24 11/15/24
15:53 20:23 03:01
Lactic Acid 4.6 H* 2.8 H 1.1
11/15/24
13:16
Lactic Acid 0.9
Microbiology Results
11/14/24 15:54 Urine Culture - Preliminary
Urine Gram negative bacilli
11/14/24 16:03 Blood Culture - Preliminary
Blood/Venous No Growth in 48 hours- Final report to follow
11/14/24 15:53 Blood Culture - Preliminary
Blood/Venous No Growth in 48 hours- Final report to follow
11/14/24 23:45 Respiratory Culture - Preliminary
Sputum Usual Respiratory Marjan
Gram Stain - Preliminary
11/15/24 03:01 MRSA Screen - Final
Nose Staph aureus MRSA
Therapeutic Drug Monitoring
Random Vancomycin 11.7 ug/ml 11/17/24 03:39
--- NOTE | 2024-11-17 11:00 | PN.CDI ---
CDI
- -
CDI:
Physician Documentation Request
Admit Date: 11/14/24 17:57
Dear Doctor Brenden,
Clinical Indicators:
Patient admitted with septic shock due to COVID 19 pneumonia.
11/17 PN, 'Heart Failure preserved EF hold PLANT INSPECTOR Lasix 40mg PO QD.'
Please provide further specificity regarding the most likely acuity of CHF you are evaluating, treating or monitoring.
Chronic HFpEF
Other, please specify
Use of terms such as suspected, likely, concern for, or probable (associated with a specific diagnosis that is being evaluated, monitored, or treated as if it exists) are acceptable and can be coded in the inpatient setting, when documented at the
time of discharge.
Thank you,
Albertina Hale RN BSN
CDI Specialist
available via tiger text
Please use your independent medical judgment in providing your response.
[2024-11-17 11:10] LABS: APTT 199.8 Sec (23.4-35.0)
--- NOTE | 2024-11-17 11:10 | PN.CDI ---
CDI
- -
CDI:
Physician Documentation Request
Admit Date: 11/14/24 17:57
Dear Doctor Brenden
Clinical Indicators:
Patient admitted with septic shock due to COVID 19 pneumonia.
11/17 KCL 40 meq IV rider x 1.
Potassium level:
11/17/24
03:39
Potassium 3.1 L
Based on the above, could you clarify in the progress notes, the appropriate diagnosis, if significant, that supports the above abnormalities and additional evaluation, monitoring and/or treatment rendered:
Hypokalemia
Abnormal lab value, clinically insignificant
Other
Use of terms such as suspected, likely, concern for, or probable (associated with a specific diagnosis that is being evaluated, monitored, or treated as if it exists) are acceptable and can be coded in the inpatient setting, when documented at the
time of discharge.
Thank you,
Albertina Hale RN BSN
CDI Specialist
available via tiger text
Please use your independent medical judgment in providing your response.
[2024-11-17 11:13] VITALS: BP_SYST 121
--- NOTE | 2024-11-17 11:15 | PN.CDI ---
CDI
- -
CDI:
Physician Documentation Request
Admit Date: 11/14/24 17:57
Dear Doctor Brenden,
Clinical Indicators:
Patient admitted with septic shock due to COVID 19 pneumonia.
BNP:
11/14/24
15:54
Tqm-R-Edczggwtids Pept 3460
11/17 PN, 'Heart Failure preserved EF hold DIRECTOR OF CLINICAL APPLICATIONS Lasix 40mg PO QD.'
Please provide further specificity regarding the most likely acuity of CHF you are evaluating, treating or monitoring.
Chronic HFpEF
Acute on chronic HFpEF
Other, please specify
Use of terms such as suspected, likely, concern for, or probable (associated with a specific diagnosis that is being evaluated, monitored, or treated as if it exists) are acceptable and can be coded in the inpatient setting, when documented at the
time of discharge.
Thank you,
Albertina Hale RN BSN
CDI Specialist
available via tiger text
Please use your independent medical judgment in providing your response.
[2024-11-17 11:17] VITALS: BP_SYST 122
[2024-11-17 11:35] VITALS: BP_SYST 110
[2024-11-17 12:15] VITALS: BP_SYST 108
[2024-11-17] MEDS: LASIX 40 MG IV (12:17)
[2024-11-17] MEDS: VANCOCIN 530 MG IV (12:17)
[2024-11-17 12:45] VITALS: BP_SYST 109
--- NOTE | 2024-11-17 13:38 | PTCARENOTE ---
Pt assessed.No change in assessment noted.SBT 5/5 40% is ongoing.ABG obtained as per MD order.Milk and molasses enema administered as ordered with large amount of brown stool resulted.Pt's and children at bedside.MD made aware.
[2024-11-17 13:43] LABS: B.E. -2.8 mmol/L; HCO3 19.7 mmol/L (21-28); O2 Saturation % 97.4 % (94-98); PCO2 27 mmHg (35-48); PO2 74 mmHg (83-108); pH 7.47 (7.35-7.45)
--- NOTE | 2024-11-17 13:45 | PTCARENOTE ---
Dr Hsu made aware ABG result.
--- NOTE | 2024-11-17 14:48 | CON.CAR ---
Addendum entered and electronically signed by Yariel Arenas MD 11/17/24 16:52:
I saw and examined the patient.
The SYSTEMS PROTECTION TECHNICIAN's note was reviewed and I agree with the note.
Comment: I found a report of an EKG from early Sep 2024 when he was at [facility] that he was in [facility]. That paperwork includes the comments of CVA, and a subdural hematoma. There were comments of low dose Eliquis (for prior venous thrombosis history)
and ASA.
Our CT does not show a subdural per report. Perhaps a neurology or neurosurgery comment on saftey of full AFib dosing of Eliquis 5 bid (weight/Cr) is appropriate. For now ok for AFib to run fast. I feel he might have a component of HFpEF
exacerbations and I think it is reasonable to give some IV diuresis (planned for today and tomorrow and then re-evaluate.
I hope/suspect he will convert to sinus if his clinical condition improves.
Original Note:
Consultation
Consultation Request
Date/Time Consultation Requested: 11/17/2024 13:30
Date/Time Consultation Performed: 11/17/2024 14:15
Requesting Provider: Dr. Wilcox
Performing Provider: ZULEMA Alvarenga for Dr. Arenas
Reason for Consultation: Hypotension, atrial fibrillation with rapid ventricular response
Medical History
-
Chief Complaint: Unresponsiveness
History of Present Illness:
Berry Staley is an 79-year-old male with RCC s/p nephrectomy, hypothyroidism, and ambulatory dysfunction (bedbound) who presented to the emergency department with a chief complaint of shortness of breath. He was diagnosed with COVID-19 5 days
prior to arrival. Per EMS he was tachypneic and hypoxic and was intubated. He was also found to have some abdominal distention which reports to be an ongoing issue per the nurses at his facility. He presented in atrial fibrillation with rapid
ventricular response. He is requiring phenylephrine for vasopressor support. He remains intubated. Cardiology was consulted for arrhythmia and hypotension.
Past Medical History
Past Medical History: Cancer (RCC), CVA and Hypothyroidism
Past Surgical History: Urological (Nephrectomy)
Social History
Tobacco: Former Smoker
Alcohol: None
Drug: None
Living: Correction
Employment: Retired
Family History
Family History: Reviewed & Not Pertinent
Allergies / Home Medications
Allergy/AdvReac Type Severity Reaction Status Date / Time
No Known Allergies Allergy Verified 08/14/18 08:23
�Medication �Instructions �Recorded �Confirmed �Type
acetaminophen 325 mg tablet 650 mg PO Q6HPRN PRN mild 11/14/24 11/14/24 History
pain/temp >100
acetaminophen 500 mg tablet 1,000 mg PO DAILY Pain 11/14/24 11/14/24 History
(Tylenol Extra Strength)
aluminum-mag hydroxide-simethicone 30 ml PO DAILYPRN PRN indigestion 11/14/24 11/14/24 History
400 mg-400 mg-40 mg/5 mL oral susp
(Maalox Maximum Strength)
baclofen 5 mg tablet 5 mg PO Q8HPRN PRN spasm 11/14/24 11/14/24 History
bisacodyl 10 mg rectal suppository 10 mg NV DAILYPRN PRN if MOM 11/14/24 11/14/24 History
(Dulcolax (bisacodyl)) ineffective
bisacodyl 5 mg tablet,delayed 10 mg PO DAILYPRN PRN constipation 11/14/24 11/14/24 History
release (Dulcolax (bisacodyl))
cholecalciferol (vitamin D3) 25 25 mcg PO DAILY Supplement 11/14/24 11/14/24 History
mcg (1,000 unit) tablet (Vitamin
D3)
enoxaparin 40 mg/0.4 mL 40 mg SC DAILY Blood Clot 11/14/24 11/14/24 History
subcutaneous syringe (Lovenox) Prevention/Tx
furosemide 40 mg tablet (Lasix) 40 mg PO DAILY Fluid 11/14/24 11/14/24 History
Retention/Swelling
gabapentin 100 mg capsule 200 mg PO Q12H Neurological 11/14/24 11/14/24 History
Condition
guaifenesin 100 mg/5 mL oral liquid 300 mg PO Q4HPRN PRN cough 11/14/24 11/14/24 History
ipratropium 0.5 mg-albuterol 3 mg 3 ml inhalation R Q6HWA 11/14/24 11/14/24 History
(2.5 mg base)/3 mL nebulization Lung/Breathing Issues
soln
levothyroxine 200 mcg tablet 200 mcg PO DAILY Thyroid 11/14/24 11/14/24 History
magnesium hydroxide 400 mg/5 mL 2,400 mg PO [id number] PRN no BM for 11/14/24 11/14/24 History
oral suspension (Milk of Magnesia) 3 days
melatonin 3 mg tablet 3 mg PO HS insomnia 11/14/24 11/14/24 History
nirmatrelvir 300 mg (150 mg 3 ea PO BID covid 11/14/24 11/14/24 History
x2)-ritonavir 100 mg tablet,dose
pack (Paxlovid)
polyethylene glycol 3350 17 17 g PO DAILYPRN PRN constipation 11/14/24 11/14/24 History
gram/dose oral powder
sennosides 8.6 mg tablet 8.6 mg PO DAILYPRN PRN constipation 11/14/24 11/14/24 History
sodium phosphates 19 gram-7 118 ml NV DAILYPRN PRN if dulcolax 11/14/24 11/14/24 History
gram/118 mL enema (Fleet Enema) ineffective
Review of Systems
-
Unable to obtain full review of systems at this time due to: Patient Intubation
Physical Exam
Vital Signs
Temp Pulse Resp BP Pulse Ox
98.7 F 128 18 83/62 94
11/17/24 11:30 11/17/24 12:45 11/17/24 12:45 11/14/24 20:00 11/17/24 12:45
Lab Results
11/17/24 03:39
Troponin I Cancelled 11/15/24 14:30
Lue-T-Ggqreozzxnq Pept 3460 pg/ml 11/14/24 15:54
Physical Exam
General: Well Developed, Well Nourished, No Apparent Distress and Comfortable
HEENT: Normocephalic, Anicteric and Moist Mucous Membranes
Respiratory: Clear and Non Labored Respirations
Cardiac: S1/S2, Irregular Rhythm and Peripheral Edema
Breast: Deferred by me
GI: Soft, Non Tender, Non Distended and Normal Bowel Sounds
Rectal: Deferred by Provider
Genito-urinary: No Costovertebral Tender
Musculoskeletal: No Clubbing and No Cyanosis
Skin: Warm and Dry
Neuro: Awake
Hematologic/Lymphatic: No Lymphadenopathy
Psych: Calm
Impression / Plan
-
I/P: 79M with RCC s/p nephrectomy, hypothyroidism, and ambulatory dysfunction (bedbound) who presented to the emergency department with a chief complaint of shortness of breath. He was diagnosed with COVID-19 5 days prior to arrival. He was
intubated by EMS.
Acute hypoxic respiratory failure, multifactorial
-Initially in the setting of COVID-19 then pneumonia, exacerbated by acute heart failure
-Extubation per pulmonary/client service and consulting manager
Septic shock
-DDx: PNA and possible UTI
-With hypotension requiring phenylephrine
HFpEF, acute
-Responding well to furosemide 40 mg IV
-He is on furosemide 40 mg daily as an outpatient
-Echocardiogram this admission without significant findings
-Trend daily weight, I/O, and BMP with diuresis
Atrial fibrillation with rapid ventricular response
-Onset unknown, rate control for now
-Oral Anticoagulation: Heparin gtt, PTTs over goal. Anti-Xa level?
-[id number]: score at least 5 (Heart failure, age 75 or more, prior Stroke/TIA)
RCC s/p nephrectomy, renal function stable
Prior CVA
Bedbound
SUBJECTIVE:
Patient able to follow simple commands.
bedside. Plan of care discussed.
RN updated.
DATA:
Echocardiogram, 11/17/2024:
Technically difficult study with fair acoustic windows.
Normal biventricular size and systolic function without regional wall motion
abnormality.
Mild concentric left ventricular hypertrophy.
Mildly dilated left atrium.
Mild mitral regurgitation.
Estimated PASP 36 mmHg, assuming RA 3 mmHg.
No prior study available for comparison.
Data Reviewed
-
EKG: Report Reviewed by me
Radiology: Report Reviewed by me
CT Scan: Report Reviewed by me
Labs: Labs Reviewed by me
Old Records: Reviewed
--- NOTE | 2024-11-17 15:50 | CM ---
CM following re: discharge planning.
Discussed in Rounds, reviewed pt's chart, met with pt. CM had a long family meeting with pt's daughter, son, son in law and daughter in law.
Per Rounds meeting, pt remains intubated, short weaning trial today, continue supportive care.
Per daughter, pt has not been home since , was at [facility], [facility], [facility] and [facility]. Per [facility] liaison, pt has 37 SNF Medicare benefits left.
Per daughter, she lives with her in [facility], son lives with spouse in [facility]. Per daughter, pt lives with spouse with cognitive declining and per family, they are looking for a short term rehab with jail care placement. Per
family, they submitted financial application to [facility] and [facility]. CM spoke to [facility] district court administrator and she confirmed that a referral is under review. [facility] referral is under review also.
Per family request, CM provided pt's family with a list of fee for services caregivers agencies with live-in caregiver options. Per family, they are planning to place the pt and his spouse for a LTC at [facility] or [facility] and they are open to
discuss 24/7 caregiver services at home. Per family, returning back to [facility] is not an option.
D/C plan: most likely [facility]F or [facility] for a short term rehab and for transition to a LTC vs home with 24/7 live-in caregiver services.
CM will follow with discharge plan updates as hospitalization progresses
[2024-11-17 16:16] LABS: Blood Urea Nitrogen 39 mg/dl (9-20); Calcium 7.3 mg/dl (8.4-10.2); Carbon Dioxide 21 mmol/L (22-30); Chloride 111 mmol/L (98-107); Estimated Creatinine Clearance 64 ml/min; Glucose 132 mg/dl (70-99); Magnesium 2.2 mg/dl (1.6-2.3); Phosphorus 1.9 mg/dl (2.5-4.5); Sodium 138 mmol/L (135-145); eGFR > 60.00
--- NOTE | 2024-11-17 16:17 | PTCARENOTE ---
Pt assessed.No change in assessment noted.SBT x 4 hours.
[2024-11-17] MEDS: DECADRON 6 MG IV (17:02)
[2024-11-17] MEDS: NEUTRA-PHOS POWDER PACKET 500 MG TUBE ×2 (17:08→19:49)
[2024-11-17 19:06] LABS: APTT 160.4 Sec (23.4-35.0)
--- NOTE | 2024-11-17 20:00 | PTCARENOTE ---
On assessment pt intubated and sedated, on FEN, PROP, Hep, FAROOQ and sodium bicarb gtt, pt has R IJ triple lumen, L radial Mary Beth. pt AFIB on the monitor, HR 120s to occasionally 150s, TRUCKING CONTRACTOR aware, 7.5 ETT 24 at the lip, AC 18/500/40/5, OGT with jevity
running at 30 and 25 flush per order goal is 50ml/hr, lester in place putting out monroe colored urine
[2024-11-18] VITALS (10 sets, daily range): BP systolic 111–128; BP diastolic 74; PULSE 2–135; BMI 31.4
--- NOTE | 2024-11-18 | PTCARENOTE ---
titrating down on FAROOQ, pt washed up and repositioned
[2024-11-18 00:26] LABS: Glucose - Point of Care 160 mg/dl (70-99)
[2024-11-18] MEDS: NEO-SYNEPHRINE 250 IV (01:33)
[2024-11-18 02:51] LABS: Hematocrit 27.7 % (39.0-52.0); Hemoglobin 9.8 g/dL (13.0-18.0); Mean Corp Hgb Conc. 35.4 g/dL (33.0-37.0); Mean Corpuscular Hgb 31.4 pg (27.0-31.0); Mean Corpuscular Volume 88.8 fL (80.0-94.0); Mean Platelet Volume 8.8 fL (7.4-10.4); Platelet Count 338 10^3/uL (130-400); Red Blood Cell Count 3.12 10^6/uL (4.70-6.10); Red Cell Dist. Width 16.6 % (11.5-14.5); White Blood Cell Count 26.4 10^3/uL (4.8-10.8)
[2024-11-18 03:00] LABS: Heparin Anti-Xa UF (UFH) 0.58 IU/mL (0.30-0.70)
[2024-11-18 03:01] LABS: APTT 128.7 Sec (23.4-35.0)
[2024-11-18 03:31] LABS: NT-proBNP 12700 pg/ml
[2024-11-18 03:51] LABS: ALT (SGPT) 51 U/L (0-50); AST (SGOT) 82 U/L (17-59); Albumin 2.4 g/dl (3.5-5.0); Alkaline Phosphatase 190 U/L (38-126); Blood Urea Nitrogen 34 mg/dl (9-20); Calcium 7.3 mg/dl (8.4-10.2); Carbon Dioxide 22 mmol/L (22-30); Chloride 111 mmol/L (98-107); Estimated Creatinine Clearance 78 ml/min; Glucose 176 mg/dl (70-99); Magnesium 2.3 mg/dl (1.6-2.3); Phosphorus 2.7 mg/dl (2.5-4.5); Potassium 4.1 mmol/L (3.5-5.1); Sodium 139 mmol/L (135-145); Total Bilirubin 0.6 mg/dl (0.2-1.3); Total Protein 4.7 g/dl (6.3-8.2); eGFR > 60.00
--- NOTE | 2024-11-18 03:55 | PTCARENOTE ---
no changes from prior assessment
[2024-11-18] MEDS: SUBLIMAZE 100 IV (04:34)
[2024-11-18] MEDS: ZOSYN 50 IV ×4 (04:35→20:53)
[2024-11-18] MEDS: SYNTHROID 175 MCG TUBE (04:35)
[2024-11-18] MEDS: DIPRIVAN 100 IV (05:06)
[2024-11-18 05:36] LABS: Glucose - Point of Care 196 mg/dl (70-99)
--- NOTE | 2024-11-18 08:17 | W.PN.INTV ---
Today's Communication / Plan
Recommendations
Plan to extubate today to BiPAP
Use BiPAP for about 1 hour and then can use it prn afterwards
Continue diuresis
Heart rate control �start amiodarone drip with goal HR <110
Cardiology consulted - discussed case with Dr. Arenas this AM
Tube feeds on hold for impending extubation; check EXTENSION CLERK evaluation once extubated
Trend BMP to assure K is >4, Mg >2
Continue heparin drip with eventual NOAC
Continue ICU level care for this critically ill patient
Assessment
-
In brief patient has a history of renal cell carcinoma status post solitary kidney and was reportedly diagnosed with COVID at a intermediate about 5 days ago. It is unclear but he probably was on Paxlovid there and per he was more short of
breath today and for increasing shortness of breath, EMS was called and patient was noted to be hypoxic and hypotensive. He was emergently intubated in the field and was brought to the emergency room. Patient was noted to be hypotensive despite IV
fluids and was started on Levophed. Subsequently a chest x-ray was performed which was suggestive of right-sided pneumonia and patient was started on broad-spectrum antibiotics. Patient was felt to have distended abdomen in the emergency room, an
OG tube was placed and dark black/brown effluent was noted concerning for question GI bleed.
Patient is being admitted to the ICU for shock as well as respiratory failure with acute kidney injury. Development Intern consult was requested for further input.
#1. Acute hypoxic respiratory failure. Recent diagnosis of COVID-19. Suspect due to pneumonia (aspiration) in the setting of acute decompensated heart failure
-R>L basal infiltrates vs atelectasis noted on imaging, aspiration pneumonia and superimposed bacterial pneumonia also in differential
-CT images are not typical of COVID-19 pneumonia
-No acute PE noted on CT
-Continue dexamethasone with vancomycin and zosyn
-Patient had acute kidney injury on admission and also has solitary kidney with prior diagnosis of renal cell carcinoma, will avoid Remdesivir
-Continue ventilatory support with daily SAT/SBT's � plan to extubate today to BiPAP; during SBT, lower PEEP to 0 given suspected component of volume overload as there was bilateral pleural effusions on CT A/P from 11/14/2024 and suspected pulmonary
edema on CXR from 11/17 now on IV lasix
-Lightly sedate with goal RASS 0 to -2 although pt getting awakening trial this AM
-Due to body habitus, PEEP was previously increased to 8, with better aeration on chest x-ray
- Check R-sided chest US and if effusion large enough then would send to IR for thora and send fluid for studies including micro and pathology
#2. Shock, suspect septic shock. Differential diagnosis include pneumonia as well as UTI considering patient has significant WBCs in the urine + UCx grew E. coli
-Blood cultures negative so far. Urine culture grew E coli, MRSA screen positive
-Sputum culture collected on 11/17/2024 from ETT is now growing GNR � follow-up species + sensitivity
-Continue broad-spectrum antibiotics, vancomycin and zosyn, ID service on case
-ECHO performed on 11/17/2024 which was a technically difficult study showed normal biventricular size and systolic function without regional WMA, mild concentric LVH, and mildly elevated PASP at 36 mmHg. Recent serial troponin unremarkable
-In view of A-fib with RVR, patient on phenylephrine --> now off as of AM of 11/18; now off Levophed + vasopressin
-Starting amiodarone drip to help with rate control
#3. Atrial fibrillation with rapid ventricular rate.
-Unclear if it is new versus prior history
-Continue heparin gtt
-Consult cardiology
-s/p IV fluid resuscitation
-Continue phenylephrine
-Rate control with goal <110
-Start amio gtt
-Patient has recent history of stroke, CT head from 11/14/2024 showed large chronic infarct in the right MCA distribution
-TSH undetectable low with normal free T4; levothyroxine lowered from 200 mcg to 175 mcg; trend TSH tomorrow
#4. Acute kidney injury, (currently solitary kidney) prior history of renal cell carcinoma status post nephrectomy per patient's spouse at bedside
- Continue to trend sCr and UOP
-s/p IVF resuscitation
-avoid hypotension, keep MAP greater than 65-70 to keep adequate perfusion
-Strict input and output
-Follow labs closely
- Of note he has a chronic lester
#5. Dark brown/black output from OG tube, ? Concern for upper GI bleed
-IV PPI 80 mg bolus followed by 40 every 12 hr
- Tolerating TF --> will now be put on hold to prepare for extubation; once extubated then will check EXTENSION CLERK eval with eventual NOAC
-Hemoglobin has stayed fairly stable without any evidence of active bleeding
-Continue heparin gtt in view of underlying A-fib with RVR and prior history of stroke
-If any signs or symptoms of bleeding noted, will consult GI service for possible EGD
#6. History of hypothyroidism
-As stated above ---> TSH undetectable low with normal free T4; levothyroxine lowered from 200 mcg to 175 mcg; trend TSH in next few days
#7. Hyponatremia - resolved
-Hypovolemic hypochloremic, hyponatremia ---> improved with IV fluid resuscitation
-Urine sodium 5, consistent with pre-renal etiology
-Hold off on any additional IVF --> started IV lasix on 11/17 (proBNP was 3460 on 11/14/2024) and there was pulmonary edema on CXR from 11/17
#8. History of renal cell carcinoma s/p left-sided nephrectomy (2021) with adjuvant immunotherapy
- He did have history of an enlarging left-sided para-aortic lymph node which was biopsied in December 2022 which showed evidence of metastasis of his RCC
- Continue follow up with oncology + rad-onc (Dr. Awan)
#9. History of left lower extremity acute DVT involving femoral vein (July 2023)
Other:
-Resume patient's home medications of gabapentin + baclofen, holding for sedation
I did discuss the patient's clinical status with the patient's children, Berry (son), Radha + Marlene (both daughters). Radha is actually a nurse so she is aware of medical terminology. The family has decided that the point person will be Berry. Of
note, they brought in the patient's living will. If he were to have an end-stage medical condition, be in an irreversibly vegetative state, no realistic hope of significant recovery or be permanently unconscious then he would be want to be
transitioned to comfort care with DNR/DNI.
DVT prophylaxis: Heparin drip
GI prophylaxis: IV pantoprazole
Continue ICU level care for this critically ill patient
Critical care statement: A total of 38 minutes of critical care time was provided for this patient today. This includes management of unstable vital signs, evaluation of the patient at bedside, reviewing the patient's pertinent medical records
including radiographs, microbiology, laboratory evaluations, and discussion with primary team, consultants, pharmacy, nutrition, physical therapy, case management, charge nurse, critical care nursing, and respiratory therapy.
DATA:
CHEST:
1. No CTA evidence for an acute pulmonary thromboembolism in the main or lobar pulmonary arteries. Suboptimal evaluation of the bilateral segmental and subsegmental pulmonary arteries.
2. Small bilateral pleural effusions and bilateral lower lobe compressive atelectasis.
3. Mild wall thickening of the esophagus suggesting esophagitis.
ABDOMEN/PELVIS:
1. Gallbladder distention with some fat stranding, but no appreciable choledocholithiasis by CT.
2. 2.2 cm nodule in the left nephrectomy bed, which could represent recurrent disease or an abnormal lymph node. No prior imaging of the abdomen is currently available for direct comparison.
3. Large amount of stool in the rectum may be secondary to constipation and/or fecal impaction.
4. Collapsed urinary bladder with wall thickening and a Lester catheter in place. Recommend correlation with a urinalysis.
Subjective Dataa
Subjective Data
Date of Service:
Date of Service: November 18, 2024
Chief Complaint: Development Intern Follow Up
Subjective:
Patient was seen and evaluated this morning. Off Christos-Synephrine since 9 AM. Propofol off this morning and now on fentanyl at 25 mcg/hr per hour. Heart rate 144�160 (A-fib with RVR), BP 128/65, and saturating 95% on the ventilator 5/5 40%. PIP is
8 cmH2O, VTe 428 mL and breathing at 21 breaths/min. Minimal ETT secretions.
Review of Systems
General: Other (Unobtainable - intubated)
Objective Data
Data Reviewed
Vital Signs / I&O / Oxygen:
Vital Signs
Temp Pulse Resp BP Pulse Ox
97.6 F 138 20 83/62 98
11/18/24 07:46 11/18/24 10:00 11/18/24 10:00 11/14/24 20:00 11/18/24 10:00
Intake and Output
11/17/24 11/18/24 11/19/24
06:59 06:59 06:59
Intake Total 2880.4 / 3085.1 3857.1 / 3895.1 369 / 369
Output Total 1050 / 1150 2375 / 2375 175 / 175
Balance 1830.4 / 1935.1 1482.1 / 1520.1 194 / 194
SaO2 [CPAP/PSV] 94
SaO2 [A/C] 98
SaO2 98
Physical Exam
General: Respiratory Distress (negative), Comfortable, Chills (negative) and Sweats (negative)
HEENT: Normocephalic, Anicteric and Other (ETT in place)
Cardiovascular: Irregular Rhythm (Irregularly irregular), Peripheral Edema (negative) and Other (Tachycardic)
Respiratory: Wheeze (negative), Rhonchi (negative), Stridor (negative) and ET Tube (Mechanical breath sounds heard bilaterally)
GI: Soft, Distended (Abdominal obesity), Non Tender and Normal Bowel Sounds
Neurology: Awake
Skin: Warm, Dry, Cyanosis (negative) and Jaundice (negative)
Labs/Micro/Reports
Lab Data
11/18/24 02:32
11/18/24 02:32
Laboratory Results
11/17/24 11/17/24 11/17/24
10:10 13:23 18:34
APTT 199.8 H* 160.4 H*
pH 7.47 H
pCO2 27 L
pO2 74 L
HCO3 19.7 L
O2 Delivery Level
11/18/24
02:32
APTT 128.7 H
pH
pCO2
pO2
HCO3
O2 Delivery Level
Microbiology
11/17/24 13:23 Sputum Respiratory Culture - Preliminary
Gram negative bacilli
11/17/24 13:23 Sputum Gram Stain - Preliminary
11/14/24 16:03 Blood/Venous Blood Culture - Preliminary
No Growth in 72 hours- Final report to follow
11/14/24 15:53 Blood/Venous Blood Culture - Preliminary
No Growth in 72 hours- Final report to follow
11/14/24 23:45 Sputum Respiratory Culture - Final
Usual Respiratory Marjan
11/14/24 23:45 Sputum Gram Stain - Final
11/14/24 15:54 Urine Urine Culture - Final
Escherichia coli
11/15/24 03:01 Nose MRSA Screen - Final
Staph aureus MRSA
[2024-11-18] MEDS: PROTONIX IV 40 MG IV ×2 (08:58→19:30)
[2024-11-18] MEDS: NSS (PRESERVATIVE FREE) 10 ML IV ×2 (08:58→19:30)
[2024-11-18] MEDS: MIRALAX TUBE (08:59)
[2024-11-18] MEDS: LASIX 40 MG IV ×2 (08:59→16:26)
[2024-11-18 09:56] LABS: Glucose - Point of Care 140 mg/dl (70-99)
--- NOTE | 2024-11-18 10:05 | W.PN.HOSP.TC ---
Today's Communication/Plan
-
see bold
Assessment / Plan
Assessment / Plan
HPI: 79-year-old man with past medical history recent CVA with left-sided deficits bedbound at baseline, renal cell cancer status post kidney resection, hypothyroidism, presenting for shortness of breath and unresponsiveness s/p intubation in the
field by EMS with persistently low blood pressures post fluid requiring Levophed initiation. CXR shows right sided pneumonia; s/p OG tube with dark black/brown fluid. He was admitted for septic shock 2/ COVID with superimposed bacterial infection,
new atrial fibrillation, no e/o active GI bleed.
A/P:
#Hypoxemic respiratory failure
#Sepsis (tachycardia, hypotension, leukocytosis/bandemia ) secondary to COVID pneumonia with superimposed bacterial infection
Septic shock secondary to pneumonia
-Appreciate editor department input, continue vent management as per editor department
-Chest x-ray shows mild opacities in the bilateral lung bases likely viral pneumonia from COVID
-MRSA screen is positive. Does not qualify for remdesivir given DAO, solitary kidney
-Continue dexamethasone, continue Zosyn as per ID for empiric coverage
-Required 3 pressors on 11/15; now off Levophed and off Vasopressin; wean phenylephrine as tolerated
-TF started
#New Onset atrial fibrillation with RVR
-Echo reviewed
-Appreciate cardiology input, recommend adding IV amiodarone, continue IV heparin drip
-Decrease Synthroid dosing when resume (see below)
Heart Failure preserved EF
-hold HEAVY THREADER Lasix 40mg PO QD
-IV lasix as per cards
Recent subdural hematoma on 10/02/24
-Head CT here neg
Hypothyroidism
- Synthroid held while NPO
-His TSH was < 0.02 on admit
-Levothyroxine resumed at lower dose on 11/18
-Follow up TFT's in 4-6 weeks
History of renal cell carcinoma status post kidney resection
DAO
NAGMA
-Resolved
Brown output from OG tube
-IV Protonix BID
-hg has been stable; IV Heparin gtt initiated on 11/16 for Afib (high risk with hx CVA)
-may have been vomiting in setting of constipation (see below)
-monitor
Constipation/Fecal Impaction seen on CT
-miralax daily
Abnormal CT with 2.2 cm nodule left nephrectomy bed
-patient will need outpatient follow up
Transaminitis likely secondary to COVID
-Continue to monitor
Hyponatremia secondary to COVID
-Resolved
Possible Urinary tract infection
-Zosyn
Obesity due to excess calories
-Affects all aspects of care
Recent CVA with left-sided deficit
-Bedbound at baseline
DVT prophylaxis�heparin drip
Full Code
Total time spent to see the patient on the floor, examine the patient, review data and lab results, discuss treatment plan with patient, nursing staff around 51 minutes.
Physical Exam
General: Intubated
HEENT: Normocephalic, Atraumatic, EOMI, MMM
Respiratory: Clear to Auscultation bilaterally
Cardiac: Normal S1/S2, Regular Rate and Rhythm
GI: Soft, Nontender, Nondistended, Normal Bowel Sounds
Extremities: No Clubbing, Cyanosis, or Edema
Neuro: Nonfocal/Grossly Intact
Anticipated Discharge: > 48 hours
Subjective/Interval History
-
Date of Service: November 18, 2024
Patient remains intubated. No fever, no vomiting.
Objective Data
-
Labs:
Laboratory Results
11/18/24
02:32
WBC 26.4 H
Hgb 9.8 L
Hct 27.7 L
Plt Count 338
APTT 128.7 H
Sodium 139
Potassium 4.1
Chloride 111 H
Carbon Dioxide 22
BUN 34 H
Creatinine 0.9
Glucose 176 H
Calcium 7.3 L
Total Bilirubin 0.6
AST 82 H
ALT 51 H
Alkaline Phosphatase 190 H
Vital Signs:
Vital Signs
Temp Pulse Resp BP Pulse Ox
97.6 F 114 18 83/62 99
11/18/24 07:46 11/18/24 09:00 11/18/24 09:00 11/14/24 20:00 11/18/24 09:00
I&O
11/17/24 11/18/24 11/19/24
06:59 06:59 06:59
Intake Total 2880.4 / 3085.1 3857.1 / 3895.1 369 / 369
Output Total 1050 / 1150 2375 / 2375 175 / 175
Balance 1830.4 / 1935.1 1482.1 / 1520.1 194 / 194
[2024-11-18 10:22] LABS: Heparin Anti-Xa LMW (LMWH) 0.58 IU/mL (0.20-0.50); Heparin Anti-Xa UF (UFH) 0.57 IU/mL (0.30-0.70)
[2024-11-18] MEDS: CORDARONE 103 MG IV (11:10)
[2024-11-18] MEDS: CORDARONE 518 MG IV (11:14)
[2024-11-18] MEDS: LIORESAL 5 MG TUBE ×2 (11:20→21:22)
[2024-11-18] MEDS: NEURONTIN 200 MG TUBE (11:20)
[2024-11-18] MEDS: HEPARIN 25000 UNITS/250 ML IV (11:28)
--- NOTE | 2024-11-18 11:36 | W.PN.CD ---
Today's Communication / Plan
-
- Will need more diuresis
- Agree with addition of AMIODARONE IV
- Reviewed with Dr Wilcox on 11/17/2024. She may chose to have neurology/neurosurgery comment on full dose anticoagulation
- Not sure if heparin can be monitored as baseline PTT elevated
Impression / Plan
-
Background: 79M with RCC s/p nephrectomy, hypothyroidism, and ambulatory dysfunction (bedbound) who presented to the emergency department with a chief complaint of shortness of breath. He was diagnosed with COVID-19 5 days prior to arrival. He was
intubated by EMS.
Acute hypoxic respiratory failure, multifactorial
-Initially in the setting of COVID-19 then pneumonia, exacerbated by acute heart failure
-Extubation per pulmonary/advertising coordinator
Septic shock
-DDx: PNA and possible UTI
- phenylephrine, off
HFpEF, acute
- Weight has increased 95.6 => 102 kg
- CXR suspects increasing right pleural effusion
- Will need more diuresis
Atrial fibrillation with rapid ventricular response
- Agree with addition of AMIODARONE IV
- No known history of AFib, was in sinus Sep 2024 at outside hospital
- Onset unknown, rate control for now
- Oral Anticoagulation: Heparin gtt, PTTs over goal. Anti-Xa level?
- [id number]: score at least 5 (Heart failure, age 75 or more, prior Stroke/TIA)
Prior Eliquis, at DVT prevention doses, in past was on Eliquis for prior venous thromboembolic events
RCC s/p nephrectomy, renal function stable
Prior CVA
Recent subdural hematoma
- Reviewed with Dr Wlicox on 11/17/2024. She may chose to have neurology/neurosurgery comment on full dose anticoagulation
Bedbound
SUBJECTIVE:
Patient able to follow simple commands.
bedside. Plan of care discussed.
RN updated.
DATA:
Echocardiogram, 11/17/2024:
Technically difficult study with fair acoustic windows.
Normal biventricular size and systolic function without regional wall motion
abnormality.
Mild concentric left ventricular hypertrophy.
Mildly dilated left atrium.
Mild mitral regurgitation.
Estimated PASP 36 mmHg, assuming RA 3 mmHg.
No prior study available for comparison.
Physical Exam
Vital Signs/Labs
Vital Signs
Temp Pulse Resp BP Pulse Ox
97.8 F 138 20 83/62 98
11/18/24 10:52 11/18/24 10:00 11/18/24 10:00 11/14/24 20:00 11/18/24 10:00
11/17/24 11/18/24 11/19/24
06:59 06:59 06:59
Actual Weight 100.3 kg 102 kg
11/18/24 02:32
11/18/24 02:32
PT 14.8 Sec (11.4-14.6) H 11/16/24 04:37
INR 1.13 11/16/24 04:37
APTT 128.7 Sec (23.4-35.0) H 11/18/24 02:32
Magnesium 2.3 mg/dl (1.6-2.3) 11/18/24 02:32
Triglycerides 113 mg/dl (10-149) 11/17/24 03:39
Free T4 1.87 ng/dl (0.78-2.19) 11/15/24 03:01
11/14/24 11/18/24
15:54 02:32
Izf-K-Qckhlovoqem Pept [id number]
Physical Exam
Constitutional: No acute distress
Cardiovascular: Rhythm/rate is irregular and S1S2 is normal
Respiratory: Respiratory effort normal and Lungs clear to auscul.
GI: Soft and Distention absent
Data Reviewed
-
Date of Service: November 18, 2024
[2024-11-18 11:38] LABS: Glucose - Point of Care 133 mg/dl (70-99)
[2024-11-18 11:45] LABS: B.E. 1.3 mmol/L; HCO3 23.7 mmol/L (21-28); PCO2 29 mmHg (35-48); PO2 98 mmHg (83-108); pH 7.52 (7.35-7.45)
--- NOTE | 2024-11-18 11:55 | PTCARENOTE ---
Phenylephrine off. BP via left radial a-line.
Propofol and Fentanyl off. Pt awake and calm, tolerating SBT. Awaiting ABG results before possible extubation.
Afib HR 130-150s after sedation d/c'd this am. Media Assistant made aware. New order for amio gtt. HR 120-130s at this time. Remains on Heparin gtt.
Large loose stool today. Rectal trumpet placed.
Tea colored urine via lester. Improved output s/p IV lasix.
All other assessments unchanged.
--- NOTE | 2024-11-18 13:10 | W.PN.ID1 ---
Date of Service
Date of Service: November 18, 2024
Today's Communication
Continue Zosyn. Await sputum culture.
Assessment / Plan
Leukocytosis
-In addition to underlying process, also steroid effect.
VDRF
Clinical sepsis
COVID-19
Hyponatremia
- improved/resolved
DAO
Lactic acidosis; improved
Pyuria/bacteriuria
Hx of CVA (06/2024)
Hx renal cell carcinoma
Hypothyroidism
Recommendations:
At present, the driving force behind the patient's ongoing hypotension is unclear, but would not completely attribute it to COVID although there may be a component of this.
Continue Zosyn for possible bacterial superinfection. Respiratory culture noted to be positive for gram-negative rods, although patient without significant infiltrate on chest x-ray
Repeat blood cultures for temperature greater than 100.5 degrees
Pt now off pressors.
Continue Dexamethasone.
Monitor white count and temperature curve.
����������������������������������������������������������
Chief Complaint
-: Leukocytosis, Clinical Sepsis and Other (COVID-19)
Subjective / Review of Systems
Review of Systems: No Fever
Vital Signs / Physical Exam
Vital Signs
Vital Signs
Temp Pulse Resp BP Pulse Ox
97.8 F 137 21 83/62 97
11/18/24 10:52 11/18/24 13:00 11/18/24 13:00 11/14/24 20:00 11/18/24 13:00
Physical Exam
Constitutional: Acutely Ill and Non-toxic
Head: Normocephalic
Eyes: Sclera Anicteric
Cardiovascular: Irregular Rate and S1/S2
Pulmonary: Other (ET tube to vent ); Negative Wheezes or Rales
Gastrointestinal: Soft and Non Distended
Genito-Urinary: Ricks
Skin: Warm and Dry
Neurological: Other (intubated )
Objective Data
Lab Data
Lab Results
11/18/24 02:32
11/18/24 02:32
PT 14.8 Sec (11.4-14.6) H 11/16/24 04:37
INR 1.13 11/16/24 04:37
APTT 128.7 Sec (23.4-35.0) H 11/18/24 02:32
Estimated Creat Clear 78 ml/min 11/18/24 02:32
Lactic Acid 0.9 mmol/L (0.7-2.0) 11/15/24 13:16
Total Bilirubin 0.6 mg/dl (0.2-1.3) 11/18/24 02:32
AST 82 U/L (17-59) H 11/18/24 02:32
ALT 51 U/L (0-50) H 11/18/24 02:32
Alkaline Phosphatase 190 U/L (38-126) H 11/18/24 02:32
Most recent labs reviewed.
Micro Results:
11/17/24 13:23 Respiratory Culture - Preliminary
Sputum Gram negative bacilli
Gram Stain - Preliminary
11/14/24 16:03 Blood Culture - Preliminary
Blood/Venous No Growth in 72 hours- Final report to follow
11/14/24 15:53 Blood Culture - Preliminary
Blood/Venous No Growth in 72 hours- Final report to follow
11/14/24 23:45 Respiratory Culture - Final
Sputum Usual Respiratory Marjan
Gram Stain - Final
11/14/24 15:54 Urine Culture - Final
Urine Escherichia coli
11/15/24 03:01 MRSA Screen - Final
Nose Staph aureus MRSA
11/14/24 15:53 Influenza Types A & B (KOBI) - Final
Nasal Swab Negative for Influenza A & B, NAAT
Negative results must be combined with clinical observations
and patient history.
Nucleic Acid Amplification test (NAAT)performed on the
[employer] platform.
Imaging:
11/14/2024 CT C/A/P: No filling defects in the main or lobar pulmonary arteries to indicate acute PE. Heart is normal in size without pericardial effusion. Small bilateral pleural effusions are noted. There is compressive atelectasis in the
posterior aspect of the bilateral lower lobes. No focal consolidation, pleural effusion or pneumothorax is seen. ET tube is present with tip in the mid thoracic trachea. The liver, spleen, bile ducts, pancreas and adrenal glands are unremarkable.
The gallbladder is distended and shows mild fat stranding. No cholelithiasis is seen. No hydronephrosis noted. Surgically absent left kidney. A 2.2 cm nodule in the left retroperitoneum in the region of the left nephrectomy bed with peripheral
soft tissue attenuation and central low-attenuation is noted. No bowel wall thickening is noted. No obstruction or inflammation seen. A large amount of stool is in the rectum. Please see full dictation for additional detail. Film personally
viewed.
[2024-11-18] MEDS: CARDIZEM 10 MG IV (15:01)
--- NOTE | 2024-11-18 15:03 | CM ---
CM following re: discharge planning.
Reviewed pt's chart, met with pt and met with pt's family: son, daughter, son in law and daughter in law.
CM spoke to [facility] program coordinator and she confirmed thay are reviewing financial application and they will contact the family when decision is made or for any additional information.
Pt's family is aware that both [facility] and [facility] are reviewing financial application.
D/c plan: [facility] or [facility] for a short term rehab and for transition to a exterminator helper care.
CM will follow with discharge plan updates as hospitalization progresses
[2024-11-18] MEDS: DECADRON 6 MG IV (16:26)
--- NOTE | 2024-11-18 16:44 | PTCARENOTE ---
Extubated at 1315. Pt forgetful. Repeats himself frequently. Often c/o 'phlegm'. Encouraged to cough and deep breathe. Ofirmev ordered for sore throat. Speech consult ordered.
Afib HR 120-130s. New order for cardizem IVP.
All other assessments unchanged.
[2024-11-18 16:45] LABS: Glucose - Point of Care 130 mg/dl (70-99)
[2024-11-18] MEDS: CHLORASEPTIC/SORE THROAT SPRAY 1 SPRAY PO (17:17)
[2024-11-18] MEDS: OFIRMEV 100 IV (17:17)
[2024-11-18] MEDS: NEURONTIN TUBE (19:29)
--- NOTE | 2024-11-18 20:00 | PTCARENOTE ---
on assessment pt AAOx3 but forgetful, pt extubated today, on hep and AMIO gtt, AFib on the monitor, RA 94%, NPO, speech consulted, rectal trumpet in place, chronic lester, bed alarm on and call benson in reach
[2024-11-18] MEDS: ProAIR HFA INHALER 2 PUFF INH (20:17)
[2024-11-18] MEDS: ZOFRAN 4 MG IV (21:25)
--- NOTE | 2024-11-18 22:00 | PTCARENOTE ---
HR 120s-130s and briefly 150s at times, BARREL ASSEMBLER HELPER made aware, BP soft at this time, on hep gtt and AMIO gtt. PRNs given see OCT.
[2024-11-18] MEDS: DILAUDID 0.5 MG IV (23:11)
--- NOTE | 2024-11-18 23:25 | PTCARENOTE ---
pt c/o increased phlegm, TRUCK DRIVER'S OFFSIDER made aware, PRN meds given and BIPAP applied for one hour, pt unable to tolerate BIPAP for a long period of time, bed alarm on and call benson in reach
[2024-11-18 23:26] LABS: Glucose - Point of Care 124 mg/dl (70-99)
[2024-11-19] MEDS: MELATONIN 5 MG PO (00:42)
[2024-11-19] MEDS: NEURONTIN 200 MG TUBE (00:42)
[2024-11-19 02:00] VITALS: PULSE 132; PULSE 2
[2024-11-19] MEDS: ProAIR HFA INHALER 2 PUFF INH (02:02)
[2024-11-19] MEDS: ZOSYN 50 IV ×4 (03:08→21:26)
[2024-11-19 03:50] LABS: Hematocrit 27.8 % (39.0-52.0); Hemoglobin 9.6 g/dL (13.0-18.0); Mean Corp Hgb Conc. 34.5 g/dL (33.0-37.0); Mean Corpuscular Hgb 31.1 pg (27.0-31.0); Mean Platelet Volume 8.9 fL (7.4-10.4); Platelet Count 240 10^3/uL (130-400); Red Blood Cell Count 3.09 10^6/uL (4.70-6.10); Red Cell Dist. Width 16.2 % (11.5-14.5); White Blood Cell Count 21.8 10^3/uL (4.8-10.8)
--- NOTE | 2024-11-19 03:55 | PTCARENOTE ---
pt c/o 'phlegm' and 'feels like I am suffocating'. pulse ox 95% RA, pt repositioned and HOB greater than 30 degrees, respiratory at bedside to deep suction, PRN nebs/breathing treatments, and place on BIPAP, pt only tolerates small amount of time on
BIPAP then refuses, PRN meds given see MAR, bed alarm on and call benson in reach
[2024-11-19 03:58] LABS: ALT (SGPT) 53 U/L (0-50); AST (SGOT) 82 U/L (17-59); Albumin 2.5 g/dl (3.5-5.0); Alkaline Phosphatase 151 U/L (38-126); Blood Urea Nitrogen 36 mg/dl (9-20); Calcium 7.7 mg/dl (8.4-10.2); Carbon Dioxide 25 mmol/L (22-30); Chloride 109 mmol/L (98-107); Estimated Creatinine Clearance 64 ml/min; Glucose 123 mg/dl (70-99); Potassium 3.5 mmol/L (3.5-5.1); Sodium 140 mmol/L (135-145); Total Bilirubin 0.5 mg/dl (0.2-1.3); Total Protein 5.1 g/dl (6.3-8.2); eGFR > 60.00
[2024-11-19 04:20] LABS: Heparin Anti-Xa UF (UFH) 0.48 IU/mL (0.30-0.70)
[2024-11-19 05:10] VITALS: BMI 31.2
[2024-11-19 05:40] LABS: Glucose - Point of Care 121 mg/dl (70-99)
[2024-11-19] MEDS: SYNTHROID 175 MCG PO (05:46)
[2024-11-19] MEDS: ZYPREXA 5 MG IM (07:24)
[2024-11-19] MEDS: STERILE WATER FOR INJECTION 2.1 ML IM (07:25)
[2024-11-19] MEDS: PROTONIX IV 40 MG IV (07:26)
[2024-11-19] MEDS: NSS (PRESERVATIVE FREE) 10 ML IV (07:26)
[2024-11-19] MEDS: LASIX 40 MG IV ×2 (07:26→16:13)
[2024-11-19] MEDS: NEURONTIN 200 MG PO (07:27)
--- NOTE | 2024-11-19 08:29 | W.PN.INTV ---
Today's Communication / Plan
Recommendations
Patient extubated to BiPAP on 11/18
Continue aspiration precautions
Now on room air breathing comfortably
Agitated overnight and given Zyprexa later in the morning hours and now is too lethargic to work with EXPLOSIVE ORDNANCE DISPOSAL TECHNICIAN or trial PO meds
Continue with diuresis as still has volume to lose, now on 40 mg IV Lasix BID per cardiology
Continue amiodarone drip (started 11/18) with goal HR <110
Start short acting PO Cardizem +/- midodrine to help wean off or down the amiodarone dose
If does not awaken over the next several hours then insert Dobbhoff tube for meds and nutrition
Cardiology consulted
EXPLOSIVE ORDNANCE DISPOSAL TECHNICIAN eval before starting PO diet
Trend BMP to assure K is >4, Mg >2
Continue heparin drip with eventual NOAC --> if DHT placed then can transition to Eliquis and DC heparin gtt
Patient is stable for downgrade out of ICU to IMU. Pulmonary service will continue to briefly follow along.
Assessment
-
In brief patient has a history of renal cell carcinoma status post solitary kidney and was [facility]. It is unclear but he probably was on Paxlovid there and per he was more short of
breath today and for increasing shortness of breath, EMS was called and patient was noted to be hypoxic and hypotensive. He was emergently intubated in the field and was brought to the emergency room. Patient was noted to be hypotensive despite IV
fluids and was started on Levophed. Subsequently a chest x-ray was performed which was suggestive of right-sided pneumonia and patient was started on broad-spectrum antibiotics. Patient was felt to have distended abdomen in the emergency room, an
OG tube was placed and dark black/brown effluent was noted concerning for question GI bleed.
Patient is being admitted to the ICU for shock as well as respiratory failure with acute kidney injury. Sparmaker consult was requested for further input.
#1. Acute hypoxic respiratory failure. Recent diagnosis of COVID-19. Suspect due to pneumonia (aspiration) in the setting of acute decompensated heart failure
-Extubated on 11/18/2024
-R>L basal infiltrates vs atelectasis noted on imaging, aspiration pneumonia and superimposed bacterial pneumonia also in differential
-CT images are not typical of COVID-19 pneumonia
-No acute PE noted on CT
-Continue dexamethasone with zosyn (started 11/14 s/p 1 dose of cefepime; also s/p IV vanco x 3 doses ()11/14, 11/16 + 11/17)
-Would give 5 days total of Decadron given that he is now on room air and breathing comfortably
-Patient had acute kidney injury on admission and also has solitary kidney with prior diagnosis of renal cell carcinoma --> avoided Remdesivir
- Suspected pulmonary edema on CXR from 11/17 now on IV lasix
- Check R-sided chest US and if effusion large enough then would send to IR for thora and send fluid for studies including micro and pathology (suspect it will not be large enough as CXR from 11/19/2024 shows improvement in RLL effusion)
Pt remains on IV lasix --> cardiology raised to 40mg IV BID on 11/18 from once daily
#2. Shock, suspect septic shock (shock state resolved since 11/18). Differential diagnosis include pneumonia as well as UTI considering patient has significant WBCs in the urine + UCx grew E. coli
-Blood cultures negative so far. Urine culture grew E coli, MRSA screen positive
-Sputum culture collected on 11/17/2024 from ETT is now growing GNR � follow-up species + sensitivity
-Continue broad-spectrum antibiotics currently with zosyn, ID service on case
-ECHO performed on 11/17/2024 which was a technically difficult study showed normal biventricular size and systolic function without regional WMA, mild concentric LVH, and mildly elevated PASP at 36 mmHg. Recent serial troponin unremarkable
-In view of A-fib with RVR, patient was on phenylephrine --> DC'd as of AM of 11/18; also has been off Levophed + vasopressin for >72 hrs
-Started amiodarone drip on 11/18 due to rapid A-fib --> remains on 1mg/min --> in an effort to help wean down the dose of amio drip, start PO cardizem 30mg q6hr and midodrine (once pt can swallow)
#3. Atrial fibrillation with rapid ventricular rate.
-Unclear if it is new versus prior history
-Continue heparin gtt and transition to Eliquis once pt can swallow
-Cardiology now on board and recs appreciated
-s/p IV fluid resuscitation
-Rate control with goal <110
-Continue amio gtt (started 11/18)
-Patient has recent history of stroke, CT head from 11/14/2024 showed large chronic infarct in the right MCA distribution
-TSH undetectable low with normal free T4; levothyroxine lowered from 200 mcg to 175 mcg; TSH rechecked today (11/19) and it is now normal at 0.6
#4. Acute kidney injury, (currently solitary kidney) prior history of renal cell carcinoma status post nephrectomy per patient's spouse at bedside
- Continue to trend sCr and UOP
-s/p IVF resuscitation
-avoid hypotension, keep MAP greater than 65-70 to keep adequate perfusion
-Strict input and output
-Follow labs closely
- Of note he has a chronic lester
#5. Dark brown/black output from OG tube - initially concern for upper GI bleed --> no longer concern for GI bleed
-IV PPI 80 mg bolus followed by 40 every 12 hr --> will DC given no current evidence for GI bleed and having brown/yellow soft stool
- Tube feeds stopped after extubated as OGT was removed; may need DHT to be placed to give meds and nutrition as he is now too lethargic to work with EXPLOSIVE ORDNANCE DISPOSAL TECHNICIAN
-Hemoglobin has stayed fairly stable without any evidence of active bleeding
-Continue heparin gtt in view of underlying A-fib with RVR and prior history of stroke
-If any signs or symptoms of bleeding noted, will consult GI service for possible EGD
#6. History of hypothyroidism
-As stated above ---> TSH undetectable low with normal free T4; levothyroxine lowered from 200 mcg to 175 mcg; TSH rechecked on 11/19 and is now WNL at 0.6; no need to recheck again
#7. Hyponatremia - resolved
-Hypovolemic hypochloremic, hyponatremia ---> improved with IV fluid resuscitation
-Urine sodium 5 on 11/14/2024, consistent with pre-renal etiology
-Hold off on any additional IVF --> started IV lasix on 11/17 (proBNP was 3460 on 11/14/2024) and there was pulmonary edema on CXR from 11/17
#8. History of renal cell carcinoma s/p left-sided nephrectomy (2021) with adjuvant immunotherapy
- He did have history of an enlarging left-sided para-aortic lymph node which was biopsied in December 2022 which showed evidence of metastasis of his RCC
- Continue follow up with oncology + rad-onc (Dr. Awan)
#9. History of left lower extremity acute DVT involving femoral vein (July 2023)
Other:
-Continue patient's home medications of gabapentin + baclofen, holding for sedation
GOC discussion on 11/18/2024: Dr. Hsu discussed the patient's clinical status with the patient's children, Berry (son), Radha + Marlene (both daughters). Radha is actually a nurse so she is aware of medical terminology. The family has decided that
the point person will be Berry. Of note, they brought in the patient's living will. If he were to have an end-stage medical condition, be in an irreversibly vegetative state, no realistic hope of significant recovery or be permanently unconscious
then he would be want to be transitioned to comfort care with DNR/DNI.
DVT prophylaxis: Heparin drip
GI prophylaxis: N/A (PPI being DC'd today)
Patient is stable for downgrade out of ICU to IMU. Pulmonary service will continue to briefly follow along.
DATA:
CHEST:
1. No CTA evidence for an acute pulmonary thromboembolism in the main or lobar pulmonary arteries. Suboptimal evaluation of the bilateral segmental and subsegmental pulmonary arteries.
2. Small bilateral pleural effusions and bilateral lower lobe compressive atelectasis.
3. Mild wall thickening of the esophagus suggesting esophagitis.
ABDOMEN/PELVIS:
1. Gallbladder distention with some fat stranding, but no appreciable choledocholithiasis by CT.
2. 2.2 cm nodule in the left nephrectomy bed, which could represent recurrent disease or an abnormal lymph node. No prior imaging of the abdomen is currently available for direct comparison.
3. Large amount of stool in the rectum may be secondary to constipation and/or fecal impaction.
4. Collapsed urinary bladder with wall thickening and a Lester catheter in place. Recommend correlation with a urinalysis.
Total time spent today was 76 minutes for this encounter. Time includes reviewing laboratory test/imaging results, reviewing pertinent medical records, obtaining and reviewing medical history, performing an appropriate exam, ordering medications,
tests and procedures. Time also includes documentation of this encounter, coordinating patient care and communicating with other healthcare professionals. Total time does not include separately billed tests performed on this date of service.
Subjective Dataa
Subjective Data
Date of Service:
Date of Service: November 19, 2024
Chief Complaint: Sparmaker Follow Up
Subjective:
Patient was seen and evaluated this morning. Patient was extubated yesterday. Currently on room air saturating 97%. Agitated overnight and did not get sleep. Given Zyprexa later in the morning and now he is very lethargic. Currently, heart rate
110, BP via A-line: 109/55 and saturating 95%.
Review of Systems
General: Other (Unobtainable (patient is deeply asleep/lethargic))
Objective Data
Data Reviewed
Vital Signs / I&O / Oxygen:
Vital Signs
Temp Pulse Resp BP Pulse Ox
97.6 F 139 20 112/74 97
11/19/24 07:26 11/19/24 06:00 11/19/24 06:00 11/18/24 17:57 11/19/24 08:40
Intake and Output
11/18/24 11/19/24 11/20/24
06:59 06:59 06:59
Intake Total 3857.1 / 3895.1 1093.7 / 1093.7 20.7 / 20.7
Output Total 2375 / 2375 2125 / 2125
Balance 1482.1 / 1520.1 -1031.3 / -1031.3 20.7 / 20.7
SaO2 [CPAP/PSV] 94
SaO2 [A/C] 98
SaO2 97
Physical Exam
General: Respiratory Distress (negative), Comfortable, Chills (negative) and Sweats (negative)
HEENT: Normocephalic, Anicteric and Other (thick neck)
Cardiovascular: Irregular Rhythm (Irregularly irregular), Peripheral Edema (+1 lower extremity pitting edema bilaterally) and Other (Tachycardic)
Respiratory: Wheeze (negative), Crackles (Bilateral), Rhonchi (negative) and Stridor (negative)
GI: Soft, Distended (Abdominal obesity), Non Tender and Normal Bowel Sounds
Neurology: Lethargic (Arousable to voice but then quickly falls back asleep)
Skin: Warm, Dry, Cyanosis (negative) and Jaundice (negative)
Labs/Micro/Reports
Lab Data
11/19/24 03:18
11/19/24 03:18
Laboratory Results
11/18/24
11:36
pH 7.52 H
pCO2 29 L
pO2 98
HCO3 23.7
O2 Delivery Level
Microbiology
11/17/24 13:23 Sputum Respiratory Culture - Preliminary
Gram negative bacilli
11/17/24 13:23 Sputum Gram Stain - Preliminary
11/14/24 16:03 Blood/Venous Blood Culture - Preliminary
No Growth in 4 days- Final report to follow
11/14/24 15:53 Blood/Venous Blood Culture - Preliminary
No Growth in 4 days- Final report to follow
11/14/24 23:45 Sputum Respiratory Culture - Final
Usual Respiratory Marjan
11/14/24 23:45 Sputum Gram Stain - Final
11/14/24 15:54 Urine Urine Culture - Final
Escherichia coli
11/15/24 03:01 Nose MRSA Screen - Final
Staph aureus MRSA
--- NOTE | 2024-11-19 08:41 | W.PN.CD ---
Today's Communication / Plan
-
HR 110 at rest. rate control options limited by BP
Continue IV amiodarone but would keep at 1mg/min
Impression / Plan
-
Background: 79M with RCC s/p nephrectomy, hypothyroidism, and ambulatory dysfunction (bedbound) who presented to the emergency department with a chief complaint of shortness of breath. He was diagnosed with COVID-19 5 days prior to arrival. He was
intubated by EMS.
Acute hypoxic respiratory failure, multifactorial
-Initially in the setting of COVID-19 then pneumonia, exacerbated by acute heart failure
-resp status stable on NC
Septic shock
-DDx: PNA and possible UTI
- phenylephrine, off
HFpEF, acute
- Weight has increased 95.6 => 102 kg =>101
- CXR suspects increasing right pleural effusion
- on lasix but degree of diuresis may be limited by BP
Atrial fibrillation with rapid ventricular response
- rate control options limited by BP. HR 110 at rest. but at times in 120s. Would put IV amio at 1mg/min rather than 0.5
- Agree with addition of AMIODARONE IV
- No known history of AFib, was in sinus Sep 2024 at outside hospital
- Oral Anticoagulation: Heparin gtt, PTTs over goal. Anti-Xa level?
- [id number]: score at least 5 (Heart failure, age 75 or more, prior Stroke/TIA)
Prior Eliquis, at DVT prevention doses, in past was on Eliquis for prior venous thromboembolic events
RCC s/p nephrectomy, renal function stable
Prior CVA
Recent subdural hematoma
- Per notes Reviewed with Dr Wilcox on 11/17/2024. She may chose to have neurology/neurosurgery comment on full dose anticoagulation
Bedbound
SUBJECTIVE:
Patient able to follow simple commands.
bedside. Plan of care discussed.
RN updated.
DATA:
Echocardiogram, 11/17/2024:
Technically difficult study with fair acoustic windows.
Normal biventricular size and systolic function without regional wall motion
abnormality.
Mild concentric left ventricular hypertrophy.
Mildly dilated left atrium.
Mild mitral regurgitation.
Estimated PASP 36 mmHg, assuming RA 3 mmHg.
No prior study available for comparison.
Physical Exam
Vital Signs/Labs
Vital Signs
Temp Pulse Resp BP Pulse Ox
97.6 F 139 20 112/74 95
11/19/24 07:26 11/19/24 06:00 11/19/24 06:00 11/18/24 17:57 11/19/24 06:00
11/18/24 11/19/24 11/20/24
06:59 06:59 06:59
Actual Weight 102 kg 101.3 kg
11/19/24 03:18
11/19/24 03:18
PT 14.8 Sec (11.4-14.6) H 11/16/24 04:37
INR 1.13 11/16/24 04:37
APTT 128.7 Sec (23.4-35.0) H 11/18/24 02:32
Magnesium 2.3 mg/dl (1.6-2.3) 11/18/24 02:32
Triglycerides 113 mg/dl (10-149) 11/17/24 03:39
Free T4 1.87 ng/dl (0.78-2.19) 11/15/24 03:01
11/14/24 11/18/24
15:54 02:32
Raw-C-Vyhlbbqwtgm Pept [id number] [id number]
Physical Exam
Constitutional: No acute distress
Cardiovascular: Rhythm/rate is irregular
Respiratory: Wheeze Absent
GI: Soft
Neuro/Psych: Alert
Data Reviewed
-
Date of Service: November 19, 2024
Medical Decision Making: Reviewed Test Results
Echo: Report Reviewed by me
Medical Tests (PFT, Pathology etc): Report Reviewed by me
Labs: Labs Reviewed by me
--- NOTE | 2024-11-19 09:30 | W.PN.HOSP.TC ---
Today's Communication/Plan
-
see bold
Assessment / Plan
Assessment / Plan
HPI: 79-year-old man with past medical history recent CVA with left-sided deficits bedbound at baseline, renal cell cancer status post kidney resection, hypothyroidism, presenting for shortness of breath and unresponsiveness s/p intubation in the
field by EMS with persistently low blood pressures post fluid requiring Levophed initiation. CXR shows right sided pneumonia; s/p OG tube with dark black/brown fluid. He was admitted for septic shock 2/ COVID with superimposed bacterial infection,
new atrial fibrillation, no e/o active GI bleed.
A/P:
#Hypoxemic respiratory failure
#Sepsis (tachycardia, hypotension, leukocytosis/bandemia ) secondary to COVID pneumonia with superimposed bacterial infection
Septic shock secondary to pneumonia
-Appreciate card player input, extubated 11/18
-Chest x-ray shows mild opacities in the bilateral lung bases likely viral pneumonia from COVID
-MRSA screen is positive. Does not qualify for remdesivir given DAO, solitary kidney
-Patient has completed 5 days of IV dexamethasone, continue Zosyn as per ID for empiric coverage
-Required 3 pressors on 11/15; off all pressors 11/19
#New Onset atrial fibrillation with RVR
-Echo reviewed
-Appreciate cardiology input, recommend IV amiodarone, continue IV heparin drip
-Can transition to Cardizem & eliquis when tolerating p.o.
-Decrease Synthroid dosing when resume (see below)
Heart Failure preserved EF
-hold INDEPENDENT DRIVER Lasix 40mg PO QD
-IV lasix as per cards
Recent subdural hematoma on 10/02/24
-Head CT here neg
Hypothyroidism
- Synthroid held while NPO
-His TSH was < 0.02 on admit
-Levothyroxine resumed at lower dose on 11/18
-Follow up TFT's in 4-6 weeks
History of renal cell carcinoma status post kidney resection
DAO
NAGMA
-Resolved
Brown output from OG tube
-IV Protonix BID
-hg has been stable; IV Heparin gtt initiated on 11/16 for Afib (high risk with hx CVA)
-may have been vomiting in setting of constipation (see below)
-monitor
Constipation/Fecal Impaction seen on CT
-miralax daily
Abnormal CT with 2.2 cm nodule left nephrectomy bed
-patient will need outpatient follow up
Transaminitis likely secondary to COVID
-Continue to monitor
Hyponatremia secondary to COVID
-Resolved
Possible Urinary tract infection
-Zosyn
Obesity due to excess calories
-Affects all aspects of care
Recent CVA with left-sided deficit
-Bedbound at baseline
DVT prophylaxis�heparin drip
Full Code
Updated [id number]-[id number] at bedside 11/19
Total time spent to see the patient on the floor, examine the patient, review data and lab results, discuss treatment plan with patient, nursing staff around 50 minutes.
Physical Exam
General: Lethargic, no acute distress
HEENT: Normocephalic, Atraumatic, EOMI, MMM
Respiratory: Clear to Auscultation bilaterally
Cardiac: Normal S1/S2, tachycardic rate and Rhythm
GI: Soft, Nontender, Nondistended, Normal Bowel Sounds
Extremities: No Clubbing, Cyanosis, or Edema
Neuro: Nonfocal/Grossly Intact
Anticipated Discharge: > 48 hours
Subjective/Interval History
-
Date of Service: November 19, 2024
Patient extubated yesterday. He was agitated overnight, requiring IM Zyprexa. Denies chest pain, denies shortness of breath. No fever, no vomiting.
Objective Data
-
Labs:
Laboratory Results
11/19/24
03:18
WBC 21.8 H
Hgb 9.6 L
Hct 27.8 L
Plt Count 240 D
Sodium 140
Potassium 3.5
Chloride 109 H
Carbon Dioxide 25
BUN 36 H
Creatinine 1.1
Glucose 123 H
Calcium 7.7 L
Total Bilirubin 0.5
AST 82 H
ALT 53 H
Alkaline Phosphatase 151 H
Vital Signs:
Vital Signs
Temp Pulse Resp BP Pulse Ox
97.6 F 139 20 112/74 97
11/19/24 07:26 11/19/24 06:00 11/19/24 06:00 11/18/24 17:57 11/19/24 08:40
I&O
11/18/24 11/19/24 11/20/24
06:59 06:59 06:59
Intake Total 3857.1 / 3895.1 1093.7 / 1093.7 20.7 / 20.7
Output Total 2375 / 2375 2125 / 2125
Balance 1482.1 / 1520.1 -1031.3 / -1031.3 20.7 / 20.7
[2024-11-19] MEDS: CORDARONE 518 MG IV (09:50)
--- NOTE | 2024-11-19 10:19 | W.PN.ID1 ---
Date of Service
Date of Service: November 19, 2024
Today's Communication
Continue Zosyn for today.
Assessment / Plan
Leukocytosis
-In addition to underlying process, also steroid effect.
VDRF
Clinical sepsis
COVID-19
Hyponatremia
- improved/resolved
DAO
Lactic acidosis; improved
Pyuria/bacteriuria
Hx of CVA (06/2024)
Hx renal cell carcinoma
Hypothyroidism
Recommendations:
Leukocytosis improving. Pt now off pressors and extubated.
Continue Zosyn for today, as respiratory culture noted to be positive for gram-negative rods, although patient without significant infiltrate on chest x-ray, although if patient remains clinically stable, will discontinue or de-escalate.
Monitor white count and temperature curve.
����������������������������������������������������������
Chief Complaint
-: Leukocytosis, Clinical Sepsis and Other (COVID-19)
Subjective / Review of Systems
Patient seen and examined. Now extubated. No fevers overnight.
Vital Signs / Physical Exam
Vital Signs
Vital Signs
Temp Pulse Resp BP Pulse Ox
97.6 F 139 20 112/74 97
11/19/24 07:26 11/19/24 06:00 11/19/24 06:00 11/18/24 17:57 11/19/24 08:40
Physical Exam
Constitutional: Acutely Ill and Non-toxic
Head: Normocephalic
Eyes: Sclera Anicteric
Cardiovascular: Irregular Rate and S1/S2
Pulmonary: Coarse and Non Labored
Gastrointestinal: Soft, Non Distended, Normal Bowel Sounds and Other (Rectal tube in place.)
Genito-Urinary: Ricks and Clear Urine
Skin: Warm and Dry
Neurological: Other (Somnolent but arousable.)
Lines: CVP (Right IJ)
Objective Data
Lab Data
Lab Results
11/19/24 03:18
11/19/24 03:18
PT 14.8 Sec (11.4-14.6) H 11/16/24 04:37
INR 1.13 11/16/24 04:37
APTT 128.7 Sec (23.4-35.0) H 11/18/24 02:32
Estimated Creat Clear 64 ml/min 11/19/24 03:18
Lactic Acid 0.9 mmol/L (0.7-2.0) 11/15/24 13:16
Total Bilirubin 0.5 mg/dl (0.2-1.3) 11/19/24 03:18
AST 82 U/L (17-59) H 11/19/24 03:18
ALT 53 U/L (0-50) H 11/19/24 03:18
Alkaline Phosphatase 151 U/L (38-126) H 11/19/24 03:18
Most recent labs reviewed.
Micro Results:
11/17/24 13:23 Respiratory Culture - Preliminary
Sputum Gram negative bacilli
Gram Stain - Preliminary
11/14/24 16:03 Blood Culture - Preliminary
Blood/Venous No Growth in 4 days- Final report to follow
11/14/24 15:53 Blood Culture - Preliminary
Blood/Venous No Growth in 4 days- Final report to follow
11/14/24 23:45 Respiratory Culture - Final
Sputum Usual Respiratory Marjan
Gram Stain - Final
11/14/24 15:54 Urine Culture - Final
Urine Escherichia coli
11/15/24 03:01 MRSA Screen - Final
Nose Staph aureus MRSA
11/14/24 15:53 Influenza Types A & B (KOBI) - Final
Nasal Swab Negative for Influenza A & B, NAAT
Negative results must be combined with clinical observations
and patient history.
Nucleic Acid Amplification test (NAAT)performed on the
[employer] NOW platform.
Imaging:
11/19/2024 CXR (portable): Right basilar opacity suggesting small right pleural effusion and likely slightly decreased from prior. No pneumothorax or left pleural effusion.
11/14/2024 CT C/A/P: No filling defects in the main or lobar pulmonary arteries to indicate acute PE. Heart is normal in size without pericardial effusion. Small bilateral pleural effusions are noted. There is compressive atelectasis in the
posterior aspect of the bilateral lower lobes. No focal consolidation, pleural effusion or pneumothorax is seen. ET tube is present with tip in the mid thoracic trachea. The liver, spleen, bile ducts, pancreas and adrenal glands are unremarkable.
The gallbladder is distended and shows mild fat stranding. No cholelithiasis is seen. No hydronephrosis noted. Surgically absent left kidney. A 2.2 cm nodule in the left retroperitoneum in the region of the left nephrectomy bed with peripheral
soft tissue attenuation and central low-attenuation is noted. No bowel wall thickening is noted. No obstruction or inflammation seen. A large amount of stool is in the rectum. Please see full dictation for additional detail. Film personally
viewed.
--- NOTE | 2024-11-19 10:49 | PTCARENOTE ---
patient agitated and yelling out at the change of shift. This RN after receiving a shift report from security shift supervisor attempted to redirect the patient by providing mouth swabs, ,using calm attitude and music, repositioning. denies having pain.
constantly asking for PO fluids. NPO order in place. patient HR 130s, afib on the monitor. BPs soft between 90s to 110s systolyc. unable to give Cardizem PRN. Amiodarone gtt increased to 1 mg/min per cardiology. IM Zyprexa given for agitation.
[2024-11-19 12:35] LABS: Glucose - Point of Care 83 mg/dl (70-99)
--- NOTE | 2024-11-19 12:37 | PTOTSP ---
Dysphagia Evaluation
Patient inappropriate for oral PO at this time due to difficulty sustaining alertness/attention to feeding related tasks and signs concerning for aspiration with sparing sips of thin water. Patient with acute on chronic dysphagia risk factors
(i.e., AHRF s/p VDRF for PNA and COVID-19; CVA w/ left weakness, cognitive impairment, and hx oral dysphagia).
Recommend:
1. Temporary NPO
2. Medications via non-oral means
3. Oral care 3x daily
4. Aspiration risk hydration protocol is not appropriate at this time
5. Dysphagia re-evaluation at the acute care level to determine if patient appropriate to initiate diet and/or if video swallow warranted
[2024-11-19] MEDS: KCL 260 MEQ IV (15:24)
--- NOTE | 2024-11-19 16:00 | PTCARENOTE ---
a line d/c with pressure held for 10 min and pressure dressing applied. transfer orders noted. report given to IMU nurse.
[2024-11-19] MEDS: DECADRON 6 MG IV (16:13)
--- NOTE | 2024-11-19 16:27 | PTOTSP ---
Dysphagia tx
Impression: Patient with acute on chronic dysphagia risk factors (i.e., AHRF s/p VDRF for PNA and COVID-19; CVA w/ left weakness, cognitive impairment, and hx oral dysphagia). TABBY improved in PM but nausea barrier to full re-evaluation of
swallowing.
Recommend:
1. Small single supervised sips of thin liquids; D/C if any signs of aspiration or worsened respiratory status
2. Medications w/ single sips of water
3. Oral care 3-5x daily
4. Swallowing strategies: upright to 90 degrees, PO only when awake/alert, full supervision/assist, small single sips, slow rate
5. Dysphagia re-evaluation at the acute care level if/when medically appropriate
[2024-11-19 17:30] LABS: Glucose - Point of Care 97 mg/dl (70-99)
[2024-11-19 18:00] VITALS: BP 100/74
--- NOTE | 2024-11-19 18:24 | PTCARENOTE ---
recieved pt as transfer from icu. pt settled in room. afib on monitor. heparin and amiodarone drips infusing as reported. No changes in assessment as reported. pt is resting calmly with callbell in reach. mey at bedside. sip of ice water given
with no coughing noted. left wrist dressing a line site intact with no drainage noted. covid isolation maintained.
[2024-11-19 20:00] VITALS: BP 125/86
[2024-11-19 22:00] VITALS: BP 133/122
[2024-11-19 23:00] LABS: Glucose - Point of Care 127 mg/dl (70-99)
[2024-11-20] VITALS (16 sets, daily range): BP systolic 93–153; BP diastolic 50–108; PULSE 114–121; O2SAT 97; BMI 30.8
[2024-11-20] MEDS: CORDARONE 518 MG IV (01:17)
[2024-11-20] MEDS: ZOSYN 50 IV ×2 (03:19→09:04)
[2024-11-20 04:01] LABS: Hematocrit 28.3 % (39.0-52.0); Mean Corp Hgb Conc. 35.3 g/dL (33.0-37.0); Mean Corpuscular Hgb 32.4 pg (27.0-31.0); Mean Corpuscular Volume 91.6 fL (80.0-94.0); Mean Platelet Volume 9.2 fL (7.4-10.4); Platelet Count 239 10^3/uL (130-400); Red Blood Cell Count 3.09 10^6/uL (4.70-6.10); Red Cell Dist. Width 16.1 % (11.5-14.5); White Blood Cell Count 27.4 10^3/uL (4.8-10.8)
[2024-11-20 04:40] LABS: Heparin Anti-Xa UF (UFH) 0.45 IU/mL (0.30-0.70)
--- NOTE | 2024-11-20 04:49 | PTCARENOTE ---
Receied patient from previous RN. Heparin and amiodarone gtt infusing. Patient NPO with sips of clears, taking sips without issue. Afib on monitor. Chronic lester in place. Patient resting in bed with call benson in reach.
[2024-11-20 05:14] LABS: ALT (SGPT) 63 U/L (0-50); AST (SGOT) 101 U/L (17-59); Albumin 2.4 g/dl (3.5-5.0); Alkaline Phosphatase 139 U/L (38-126); Blood Urea Nitrogen 32 mg/dl (9-20); Calcium 7.8 mg/dl (8.4-10.2); Carbon Dioxide 25 mmol/L (22-30); Chloride 106 mmol/L (98-107); Estimated Creatinine Clearance 70 ml/min; Glucose 102 mg/dl (70-99); Potassium 3.8 mmol/L (3.5-5.1); Sodium 138 mmol/L (135-145); Total Bilirubin 0.5 mg/dl (0.2-1.3); Total Protein 4.8 g/dl (6.3-8.2); eGFR > 60.00
[2024-11-20 05:30] LABS: Glucose - Point of Care 92 mg/dl (70-99)
[2024-11-20] MEDS: SYNTHROID 175 MCG PO (05:30)
--- NOTE | 2024-11-20 08:48 | W.PN.HOSP.TC ---
Addendum entered and electronically signed by Moises Butler MD 11/20/24 13:42:
Severe protein calorie malnutrition ruled out
Original Note:
Today's Communication/Plan
-
see bold
Assessment / Plan
Assessment / Plan
HPI: 79-year-old man with past medical history recent CVA with left-sided deficits bedbound at baseline, renal cell cancer status post kidney resection, hypothyroidism, presenting for shortness of breath and unresponsiveness s/p intubation in the
field by EMS with persistently low blood pressures post fluid requiring Levophed initiation. CXR shows right sided pneumonia; s/p OG tube with dark black/brown fluid. He was admitted for septic shock 09/28 COVID with superimposed bacterial infection,
new atrial fibrillation, no e/o active GI bleed.
A/P:
#Hypoxemic respiratory failure
#Sepsis (tachycardia, hypotension, leukocytosis/bandemia ) secondary to COVID pneumonia with superimposed bacterial infection
#Septic shock secondary to covid pneumonia
-Appreciate occasional caregiver input, extubated 11/18
-Chest x-ray shows mild opacities in the bilateral lung bases likely viral pneumonia from COVID
-MRSA screen is positive. Does not qualify for remdesivir given DAO, solitary kidney
-Patient has completed 5 days of IV dexamethasone, status post full course of IV Zosyn
-Required 3 pressors on 11/15; off all pressors 11/19
-11/20 off isolation precautions. Currently on room air, off pressors
#New Onset atrial fibrillation with RVR
-Echo reviewed. Cardiology following
-Transition from IV amiodarone and IV heparin drip to oral Cardizem and Eliquis
-Decrease Synthroid dosing when resume (see below)
Heart Failure preserved EF
-hold VENDING ROUTE SERVICER Lasix 40mg PO QD
-IV lasix as per cards
Recent subdural hematoma on 10/02/24
-Head CT here neg
Hypothyroidism
- Synthroid held while NPO
-His TSH was < 0.02 on admit
-Levothyroxine resumed at lower dose on 11/18
-Follow up TFT's in 4-6 weeks
History of renal cell carcinoma status post kidney resection
DAO
NAGMA
-Resolved
Brown output from OG tube
-Protonix BID
-hg has been stable; IV Heparin gtt initiated on 11/16 for Afib (high risk with hx CVA)
-may have been vomiting in setting of constipation (see below)
-monitor
Constipation/Fecal Impaction seen on CT
-miralax daily
Abnormal CT with 2.2 cm nodule left nephrectomy bed
-patient will need outpatient follow up
Transaminitis likely secondary to COVID
-Continue to monitor
Hyponatremia secondary to COVID
-Resolved
Possible Urinary tract infection
-Status post full course of Zosyn
Obesity due to excess calories
-Affects all aspects of care
Recent CVA with left-sided deficit
-Bedbound at baseline
DVT prophylaxis�Eliquis
Full Code
Updated [id number] at bedside 11/19
Updated daughter at bedside 11/20
Total time spent to see the patient on the floor, examine the patient, review data and lab results, discuss treatment plan with patient, nursing staff around 51 minutes.
Physical Exam
General: Lethargic, no acute distress
HEENT: Normocephalic, Atraumatic, EOMI, MMM
Respiratory: Clear to Auscultation bilaterally
Cardiac: Normal S1/S2, tachycardic rate and Rhythm
GI: Soft, Nontender, Nondistended, Normal Bowel Sounds
Extremities: No Clubbing, Cyanosis, or Edema
Neuro: Nonfocal/Grossly Intact
Anticipated Discharge: > 48 hours
Subjective/Interval History
-
Date of Service: November 20, 2024
Patient reports not feeling well. Denies shortness of breath. No nausea, no vomiting. He has a cough. No fever.
Objective Data
-
Labs:
Laboratory Results
11/20/24
03:51
WBC 27.4 H
Hgb 10.0 L
Hct 28.3 L
Plt Count 239
Sodium 138
Potassium 3.8
Chloride 106
Carbon Dioxide 25
BUN 32 H
Creatinine 1.0
Glucose 102 H
Calcium 7.8 L
Total Bilirubin 0.5
AST 101 H
ALT 63 H
Alkaline Phosphatase 139 H
Vital Signs:
Vital Signs
Temp Pulse Resp BP Pulse Ox
98.4 F 114 16 138/90 97
11/20/24 07:37 11/20/24 06:00 11/20/24 06:00 11/20/24 04:01 11/20/24 04:01
I&O
11/19/24 11/20/24 11/21/24
06:59 06:59 06:59
Intake Total 1093.7 / 1093.7 497.2 / 497.2
Output Total 2125 / 2125 900 / 900
Balance -1031.3 / -1031.3 -402.8 / -402.8
[2024-11-20] MEDS: LASIX 40 MG IV ×2 (09:03→17:03)
--- NOTE | 2024-11-20 10:55 | W.PN.PUL3 ---
Today's Communication / Plan
-
Oxygen has been weaned off-adequate oxygenation 95% on room air
BiPAP has been discontinued
Right ultrasound with small pleural effusion not amenable for thoracentesis.
Patient has a strong cough effort
On proper antibiotics per infectious disease
Incentive spirometry has been ordered, encourage.
Minimize sedation
Continue diuretics
No additional recommendation from the pulmonary perspective
sign off.
Assessment
-
In brief patient has a history of renal cell carcinoma status post solitary kidney and was reportedly diagnosed with COVID at a [facility] about 5 days ago. It is unclear but he probably was on Paxlovid there and per he was more short of
breath today and for increasing shortness of breath, EMS was called and patient was noted to be hypoxic and hypotensive. He was emergently intubated in the field and was brought to the emergency room. Patient was noted to be hypotensive despite IV
fluids and was started on Levophed. Subsequently a chest x-ray was performed which was suggestive of right-sided pneumonia and patient was started on broad-spectrum antibiotics. Patient was felt to have distended abdomen in the emergency room, an
OG tube was placed and dark black/brown effluent was noted concerning for question GI bleed.
-
Transfer to floors 11/20/2024-pulmonary following for pneumonia and hypoxemia.
#1. Acute hypoxic respiratory failure. Recent diagnosis of COVID-19. Suspect due to pneumonia (aspiration) in the setting of acute decompensated heart failure
-Extubated on 11/18/2024
-Oxygen has been weaned off.
-R>L basal infiltrates vs atelectasis noted on imaging, aspiration pneumonia and superimposed bacterial pneumonia also in differential
-CT images are not typical of COVID-19 pneumonia
-No acute PE noted on CT
-Completed 5 days of dexamethasone.
-Respiratory culture with Klebsiella pneumonia ESBL-antibiotics per infectious disease.
-Persistent leukocytosis but afebrile
-
Incentive spirometry encouraged
Avoid sedatives
-
-Patient had acute kidney injury on admission and also has solitary kidney with prior diagnosis of renal cell carcinoma --> avoided Remdesivir
-R-sided chest US-small pleural effusion. Not amenable for thoracentesis.
-
Continue IV lasix --> cardiology raised to 40mg IV BID on 11/18.
Monitor renal function and electrolytes
#2. Shock, suspect septic shock (shock state resolved since 11/18). Resolved.
#3. Atrial fibrillation with rapid ventricular rate.
Heart rate control per cardiology.
Remains on amiodarone
Remains on anticoagulation
#4. Acute kidney injury, (currently solitary kidney) prior history of renal cell carcinoma status post nephrectomy per patient's spouse at bedside
Resolved
#5. Anemia-dark brown/black output from OG tube - initially concern for upper GI bleed --> no longer concern for GI bleed
-PPI prophylactic
-Continue heparin gtt in view of underlying A-fib with RVR and prior history of stroke
-If any signs or symptoms of bleeding noted, will consult GI service for possible EGD
#6. History of renal cell carcinoma s/p left-sided nephrectomy (2021) with adjuvant immunotherapy
- He did have history of an enlarging left-sided para-aortic lymph node which was biopsied in December 2022 which showed evidence of metastasis of his RCC
- Continue follow up with oncology + rad-onc (Dr. Awan)
#9. History of left lower extremity acute DVT involving femoral vein (July 2023)-remains on anticoagulation for atrial fibrillation.
Other:
-Continue patient's home medications of gabapentin + baclofen, holding for sedation
GOC discussion on 11/18/2024: Dr. Hsu discussed the patient's clinical status with the patient's children, Berry (son), Radha + Marlene (both daughters). Radha is actually a nurse so she is aware of medical terminology. The family has decided that
the point person will be Berry. Of note, they brought in the patient's living will. If he were to have an end-stage medical condition, be in an irreversibly vegetative state, no realistic hope of significant recovery or be permanently unconscious
then he would be want to be transitioned to comfort care with DNR/DNI.
DVT prophylaxis: Heparin drip
GI prophylaxis: N/A (PPI being DC'd today)
Subjective Data
-
Date of Service:
Date of Service: November 20, 2024
Chief Complaint: Pulmonary Follow Up (Hypoxemic respiratory failure)
Subjective:
Offers no significant pulmonary complaints
Denies increased phlegm production
Remains off supplemental oxygen
Review of Systems
General: Fever (n)
Cardiopulmonary: Dyspnea (None at rest)
GI: Abdominal Pain (n) and Nausea (n)
Objective Data
Data Reviewed
Vital Signs / I&O / Oxygen:
Vital Signs
Temp Pulse Resp BP Pulse Ox
98.4 F 107 16 138/90 97
11/20/24 07:37 11/20/24 09:03 11/20/24 06:00 11/20/24 04:01 11/20/24 04:01
Intake and Output
11/19/24 11/20/24 11/21/24
06:59 06:59 06:59
Intake Total 1093.7 / 1093.7 497.2 / 497.2
Output Total 2125 / 2125 900 / 900
Balance -1031.3 / -1031.3 -402.8 / -402.8
SaO2 [CPAP/PSV] 94
SaO2 [A/C] 98
SaO2 97
Physical Exam
General: Comfortable
HEENT: Normocephalic
Cardiovascular: S1-S2
Respiratory: Non-Labored Respirations
GI: Soft and Non Distended
Neurology: Awake and Alert
Skin: Warm
Labs/Micro/Reports
Lab Data
11/20/24 03:51
11/20/24 03:51
Microbiology
11/17/24 13:23 Sputum Respiratory Culture - Final
Klebsiella pneumoniae-ESBL
11/17/24 13:23 Sputum Gram Stain - Final
11/14/24 16:03 Blood/Venous Blood Culture - Final
No Growth - Final Report
11/14/24 15:53 Blood/Venous Blood Culture - Final
No Growth - Final Report
11/14/24 23:45 Sputum Respiratory Culture - Final
Usual Respiratory Marjan
11/14/24 23:45 Sputum Gram Stain - Final
11/14/24 15:54 Urine Urine Culture - Final
Escherichia coli
[2024-11-20] MEDS: ELIQUIS 5 MG PO ×2 (11:17→20:49)
[2024-11-20] MEDS: KCL 20 MEQ PO (11:17)
[2024-11-20] MEDS: CARDIZEM 30 MG PO ×3 (11:17→20:49)
--- NOTE | 2024-11-20 11:20 | W.PN.ID1 ---
Date of Service
Date of Service: November 20, 2024
Today's Communication
Discontinue Zosyn.
Assessment / Plan
Leukocytosis
-In addition to underlying process, also steroid effect.
VDRF
Clinical sepsis
COVID-19
Hyponatremia
- improved/resolved
DAO
Lactic acidosis; improved
Pyuria/bacteriuria
Hx of CVA (06/2024)
Hx renal cell carcinoma
Hypothyroidism
Recommendations:
Leukocytosis persists.
Patient without significant respiratory symptomatology.
Respiratory cultures noted, but at present do not suspect pneumonia (clinical symptomatology not present, and no infiltrate on chest x-ray.)
Currently day #7 Zosyn.
Moving forward, discontinue further antibiotics and observe closely.
Monitor white count and temperature curve.
����������������������������������������������������������
Chief Complaint
-: Leukocytosis, Clinical Sepsis and Other (COVID-19)
Subjective / Review of Systems
Review of Systems: No Fever, No Chills, Cough and Sputum Production (Whitish)
Vital Signs / Physical Exam
Vital Signs
Vital Signs
Temp Pulse Resp BP Pulse Ox
98.4 F 102 22 137/89 97
11/20/24 07:37 11/20/24 11:17 11/20/24 11:00 11/20/24 11:17 11/20/24 04:01
Physical Exam
Constitutional: Comfortable, Chronically Ill and Non-toxic
Head: Normocephalic
Cardiovascular: S1/S2; Negative S3/S4
Pulmonary: Coarse and Non Labored
Gastrointestinal: Soft, Non Distended, Normal Bowel Sounds and Other (Rectal tube in place.)
Genito-Urinary: Ricks and Clear Urine
Skin: Warm and Dry
Neurological: Awake
Lines: CVP (Right IJ; exit site without erythema or tenderness.)
Objective Data
Lab Data
Lab Results
11/20/24 03:51
11/20/24 03:51
PT 14.8 Sec (11.4-14.6) H 11/16/24 04:37
INR 1.13 11/16/24 04:37
APTT 128.7 Sec (23.4-35.0) H 11/18/24 02:32
Estimated Creat Clear 70 ml/min 11/20/24 03:51
Lactic Acid 0.9 mmol/L (0.7-2.0) 11/15/24 13:16
Total Bilirubin 0.5 mg/dl (0.2-1.3) 11/20/24 03:51
AST 101 U/L (17-59) H 11/20/24 03:51
ALT 63 U/L (0-50) H 11/20/24 03:51
Alkaline Phosphatase 139 U/L (38-126) H 11/20/24 03:51
Most recent labs reviewed.
Micro Results:
11/17/24 13:23 Respiratory Culture - Final
Sputum Klebsiella pneumoniae-ESBL
Gram Stain - Final
11/14/24 16:03 Blood Culture - Final
Blood/Venous No Growth - Final Report
11/14/24 15:53 Blood Culture - Final
Blood/Venous No Growth - Final Report
11/14/24 23:45 Respiratory Culture - Final
Sputum Usual Respiratory Marjan
Gram Stain - Final
11/14/24 15:54 Urine Culture - Final
Urine Escherichia coli
11/15/24 03:01 MRSA Screen - Final
Nose Staph aureus MRSA
11/14/24 15:53 Influenza Types A & B (KOBI) - Final
Nasal Swab Negative for Influenza A & B, NAAT
Negative results must be combined with clinical observations
and patient history.
Nucleic Acid Amplification test (NAAT)performed on the
[employer] platform.
Imaging:
11/19/2024 CXR (portable): Right basilar opacity suggesting small right pleural effusion and likely slightly decreased from prior. No pneumothorax or left pleural effusion.
11/14/2024 CT C/A/P: No filling defects in the main or lobar pulmonary arteries to indicate acute PE. Heart is normal in size without pericardial effusion. Small bilateral pleural effusions are noted. There is compressive atelectasis in the
posterior aspect of the bilateral lower lobes. No focal consolidation, pleural effusion or pneumothorax is seen. ET tube is present with tip in the mid thoracic trachea. The liver, spleen, bile ducts, pancreas and adrenal glands are unremarkable.
The gallbladder is distended and shows mild fat stranding. No cholelithiasis is seen. No hydronephrosis noted. Surgically absent left kidney. A 2.2 cm nodule in the left retroperitoneum in the region of the left nephrectomy bed with peripheral
soft tissue attenuation and central low-attenuation is noted. No bowel wall thickening is noted. No obstruction or inflammation seen. A large amount of stool is in the rectum. Please see full dictation for additional detail. Film personally
viewed.
--- NOTE | 2024-11-20 12:03 | PTOTSP ---
Dysphagia Therapy
Impression: At least mild oral dysphagia suspected. No signs concerning for overt aspiration. Risk for dysphagia elevated (i.e., AHRF s/p VDRF for aspiration PNA and COVID-19, increased oral secretions; CVA w/ left weakness, cognitive impairment,
and hx oral dysphagia).
Recommendations:
1. IDDSI Level 6 Soft/Bite Sized, Thin Liquids
2. Medications: whole and/or crushed in puree as needed/medically cleared
3. Oral care 3-5x daily
4. Strategies: 1:1 supervision, assistance as needed, upright to 90 degrees, small single sips/bites, slow rate, alternate sips/bites, check for oral clearance, oral care after meals
5. Consider video swallow study to r/o silent aspiration as appropriate and objectively assess pharyngeal swallow
6. Dysphagia tx at the acute care level for instruction in compensations and to determine if/when diet advancement appropriate.
[2024-11-20 12:27] LABS: Glucose - Point of Care 77 mg/dl (70-99)
--- NOTE | 2024-11-20 12:51 | PN.CDI ---
CDI
- -
CDI:
Physician Documentation Request
Admit Date: 11/14/24 17:57
Dear Doctor Do,
Clinical indicators:
The diagnosis of Severe Protein Calorie Malnutrition is documented in the record on 11/17 Hospitalist Progress Note.
There is either a lack of clinical support for this condition in the current medical record, or there is a lack of recognized standard criteria to support the condition.
BMI 30.7
11/14 H & P, Physical Exam: Well Developed, Well Nourished
11/15 note/assessment: BMI assessment Overweight
11/17 PN, 'Severe Protein Calorie Malnutrition'
Dawson Criteria ([facility] Hospitalist 2017)
2 or more criteria must be present for either
non severe or severe malnutrition
Note that the criteria differs related to the
presence of an acute or chronic illness
Acute Illness Chronic Illness
Energy Intake Non Severe: <75% for >7 days Non Severe: <75% for >1 month
Severe: <50% for >5 days Severe: <75% for >1 month
Weight Loss Non Severe: 1-2% over 1 week Non Severe: 5% over 1 month
5% over 1 month 7.5% over 3 months
7.5% over 3 months 10% over 6 months
1 year N/A 20% over 1 year
Severe: >2% over 1 week Severe: >5% over 1 month
>5% over 1 month >7.5% over 3 months
>7.5% over 3 months >10% over 6 months
1 year N/A >20% over 1 year
Body Fat Non Severe: Mild Decrease Non Severe: Mild Loss
Severe: Moderate Decrease Severe: Severe Loss
Muscle Mass Non Severe: Mild Decrease Non Severe: Mild Loss
Severe: Moderate Decrease Severe: Severe Loss
Fluid Accumulation Non Severe: Mild Accumulation Non Severe: Mild Accumulation
Severe: Moderate to severe Severe: Moderate to severe
accumulation accumulation
Reduced Fire Adjuster Strength Non Severe: N/A Non Severe: N/A
Severe: Measurably reduced Severe: Measurably reduced
Please clarify the following:
- Severe Protein Calorie Malnutrition remains a known or suspected condition and is further supported by
(include additional documentation in the medical record; Indicate if this is in lieu of what may be considered
standard criteria, and/or support why the standard criteria may not be present for this patient.)
- Severe malnutrition has been ruled out.
- Other (please specify)
Use of terms such as suspected, likely, concern for, or probable (associated with a specific diagnosis that is being evaluated, monitored, or treated as if it exists) are acceptable and can be coded in the inpatient setting, when documented at the
time of discharge.
Thank you,
Albertina Hale RN BSN
CDI Specialist
available via tiger text
Please use your independent medical judgment in providing your response.
--- NOTE | 2024-11-20 13:21 | PTCARENOTE ---
Patient AAOx3, flat. Chronic residual left sided deficits noted. VSS, on RA. Heparin and amiodarone gtts off. Afib on monitor. Diet ordered for patient. Remains with rectal trumpet and chronic lester. Patient making needs known. Family at bedside.
Continuing to closely monitor.
--- NOTE | 2024-11-20 15:15 | CM ---
Reviewed the chart notes. CM spoke with Ibrahima from [facility]. Family has filled out financial information. No bed on the dementia unit available this week. CM continues to be available to patient/family and is monitoring medical plan for needs at
discharge.
Plan: Discharge to SNF with transition to LTC once a bed is secured. No precert required for SNF.
--- NOTE | 2024-11-20 16:13 | W.PN.CD ---
Today's Communication / Plan
-
Cont lasix
Agree wtih dilt likely will need uptitration
Eliquis for AC
Impression / Plan
-
Background: 79M with RCC s/p nephrectomy, hypothyroidism, and ambulatory dysfunction (bedbound) who presented to the emergency department with a chief complaint of shortness of breath. He was diagnosed with COVID-19 5 days prior to arrival. He was
intubated by EMS.
Acute hypoxic respiratory failure, multifactorial
-Initially in the setting of COVID-19 then pneumonia, exacerbated by acute heart failure
-resp status stable on NC
Septic shock
-DDx: PNA and possible UTI
- phenylephrine, off
HFpEF, acute
- Weight has increased 95.6 => 102 kg =>101
- CXR suspects increasing right pleural effusion
- cont lasix
Atrial fibrillation with rapid ventricular response
- rate control options limited by BP. HR 110 at rest. but at times in 120s. Would put IV amio at 1mg/min rather than 0.5
- Stop Amio; agree with dilt --> likely will need to uptitrate
- No known history of AFib, was in sinus Sep 2024 at outside hospital
- Oral Anticoagulation: Heparin gtt, PTTs over goal. Anti-Xa level?
- [id number]: score at least 5 (Heart failure, age 75 or more, prior Stroke/TIA)
- now on Eliquis for AF
RCC s/p nephrectomy, renal function stable
Prior CVA
Recent subdural hematoma
- Per notes Reviewed with Dr Wilcox on 11/17/2024. She may chose to have neurology/neurosurgery comment on full dose anticoagulation
Bedbound
SUBJECTIVE:
AF RVR
DATA:
Echocardiogram, 11/17/2024:
Technically difficult study with fair acoustic windows.
Normal biventricular size and systolic function without regional wall motion
abnormality.
Mild concentric left ventricular hypertrophy.
Mildly dilated left atrium.
Mild mitral regurgitation.
Estimated PASP 36 mmHg, assuming RA 3 mmHg.
No prior study available for comparison.
Physical Exam
Vital Signs/Labs
Vital Signs
Temp Pulse Resp BP Pulse Ox
97.7 F 115 23 141/83 97
11/20/24 11:58 11/20/24 15:00 11/20/24 15:00 11/20/24 14:00 11/20/24 08:00
11/19/24 11/20/24 11/21/24
06:59 06:59 06:59
Actual Weight 223 lb 5.252 oz 220 lb 7.396 oz
11/20/24 03:51
11/20/24 03:51
PT 14.8 Sec (11.4-14.6) H 11/16/24 04:37
INR 1.13 11/16/24 04:37
APTT 128.7 Sec (23.4-35.0) H 11/18/24 02:32
Magnesium 2.3 mg/dl (1.6-2.3) 11/18/24 02:32
Triglycerides 113 mg/dl (10-149) 11/17/24 03:39
Free T4 1.87 ng/dl (0.78-2.19) 11/15/24 03:01
11/14/24 11/18/24
15:54 02:32
[id number] Pept [id number]
Physical Exam
Constitutional: No acute distress
EENT: Anicteric
Cardiovascular: Rhythm/rate is irregular
Respiratory: Respiratory effort normal
Neuro/Psych: Other (awake)
Data Reviewed
-
Date of Service: November 20, 2024
EKG: Tracing Personally Visualized and interpreted (af)
Echo: Report Reviewed by me
Labs: Labs Reviewed by me
[2024-11-20 17:54] LABS: Glucose - Point of Care 100 mg/dl (70-99)
[2024-11-20] MEDS: SEROQUEL 25 MG PO (20:57)
--- NOTE | 2024-11-20 21:46 | PTCARENOTE ---
Patient Aox3 but very flat. Left side flaccid. Afib on monitor. Chronic lester and rectal trumpet in place. Right IJ. Helping patient with sips of clears. Making needs known. Patient resting in bed with call benson in reach.
[2024-11-20 21:59] LABS: Glucose - Point of Care 120 mg/dl (70-99)
[2024-11-21] VITALS (16 sets, daily range): BP systolic 89–133; BP diastolic 60–111; PULSE 2–106
[2024-11-21 03:40] LABS: Hematocrit 29.4 % (39.0-52.0); Hemoglobin 10.2 g/dL (13.0-18.0); Mean Corp Hgb Conc. 34.7 g/dL (33.0-37.0); Mean Corpuscular Hgb 31.5 pg (27.0-31.0); Mean Corpuscular Volume 90.7 fL (80.0-94.0); Mean Platelet Volume 8.9 fL (7.4-10.4); Platelet Count 217 10^3/uL (130-400); Red Blood Cell Count 3.24 10^6/uL (4.70-6.10); White Blood Cell Count 20.7 10^3/uL (4.8-10.8)
[2024-11-21 04:33] LABS: ALT (SGPT) 54 U/L (0-50); AST (SGOT) 75 U/L (17-59); Albumin 2.3 g/dl (3.5-5.0); Alkaline Phosphatase 121 U/L (38-126); Blood Urea Nitrogen 27 mg/dl (9-20); Calcium 7.8 mg/dl (8.4-10.2); Carbon Dioxide 28 mmol/L (22-30); Chloride 107 mmol/L (98-107); Estimated Creatinine Clearance 63 ml/min; Glucose 90 mg/dl (70-99); Potassium 3.2 mmol/L (3.5-5.1); Sodium 139 mmol/L (135-145); Total Bilirubin 0.5 mg/dl (0.2-1.3); Total Protein 4.6 g/dl (6.3-8.2); eGFR > 60.00
[2024-11-21] MEDS: KCL 40 MEQ PO ×3 (04:54→13:40)
[2024-11-21] MEDS: SYNTHROID 175 MCG PO (04:54)
[2024-11-21 05:36] LABS: Glucose - Point of Care 112 mg/dl (70-99)
--- NOTE | 2024-11-21 07:42 | W.PN.HOSP.TC ---
Today's Communication/Plan
-
see bold
Assessment / Plan
Assessment / Plan
HPI: 79-year-old man with past medical history recent CVA with left-sided deficits bedbound at baseline, renal cell cancer status post kidney resection, hypothyroidism, presenting for shortness of breath and unresponsiveness s/p intubation in the
field by EMS with persistently low blood pressures post fluid requiring Levophed initiation. CXR shows right sided pneumonia; s/p OG tube with dark black/brown fluid. He was admitted for septic shock 2/ COVID with superimposed bacterial infection,
new atrial fibrillation, no e/o active GI bleed.
A/P:
#Hypoxemic respiratory failure
#Sepsis (tachycardia, hypotension, leukocytosis/bandemia ) secondary to COVID pneumonia with superimposed bacterial infection
#Septic shock secondary to covid pneumonia
-Appreciate technical illustrations map inker input, extubated 11/18
-Chest x-ray shows mild opacities in the bilateral lung bases likely viral pneumonia from COVID
-MRSA screen is positive. Does not qualify for remdesivir given DAO, solitary kidney
-Patient has completed 5 days of IV dexamethasone, status post full course of IV Zosyn
-Required 3 pressors on 11/15; off all pressors 11/19
-11/20 off isolation precautions. Currently on room air, off pressors
#New Onset atrial fibrillation with RVR
-Echo reviewed. Cardiology following
-Transitioned from IV amiodarone and IV heparin drip to oral Cardizem and Eliquis 11/20
-Patient is still tachycardic, cardiology increase oral Cardizem to 60 mg 4 times daily
-Decrease Synthroid dosing when resume (see below)
Heart Failure preserved EF
-hold DESKTOP MANAGER Lasix 40mg PO QD
-IV lasix as per cards
Recent subdural hematoma on 10/02/24
-Head CT here neg
Hypothyroidism
- Synthroid held while NPO
-His TSH was < 0.02 on admit
-Levothyroxine resumed at lower dose on 11/18
-Follow up TFT's in 4-6 weeks
History of renal cell carcinoma status post kidney resection
DAO
NAGMA
-Resolved
Brown output from OG tube
-Protonix BID
-hg has been stable; IV Heparin gtt initiated on 11/16 for Afib (high risk with hx CVA)
-may have been vomiting in setting of constipation (see below)
-monitor
Constipation/Fecal Impaction seen on CT
-miralax daily
Abnormal CT with 2.2 cm nodule left nephrectomy bed
-patient will need outpatient follow up
Transaminitis likely secondary to COVID
-Continue to monitor
Hyponatremia secondary to COVID
-Resolved
Possible Urinary tract infection
-Status post full course of Zosyn
Obesity due to excess calories
-Affects all aspects of care
Recent CVA with left-sided deficit
-Bedbound at baseline
Poor oral intake
-Start protein supplement
DVT prophylaxis�Eliquis
Full Code
Updated [id number] at bedside 11/19
Updated daughter at bedside 11/20
Called daughter twice on 11/21, she did not machine pecan picker
[facility] SNF vs [facility] once family decides & medically ready, possibly Mon 11/24
Total time spent to see the patient on the floor, examine the patient, review data and lab results, discuss treatment plan with patient, nursing staff around 50 minutes.
Physical Exam
General: Obese, no acute distress
HEENT: Normocephalic, Atraumatic, EOMI, MMM
Respiratory: Clear to Auscultation bilaterally
Cardiac: Normal S1/S2, tachycardic rate and irregular rhythm
GI: Soft, Nontender, Nondistended, Normal Bowel Sounds
Extremities: No Clubbing, Cyanosis
Mild lower extremity edema
Neuro: Nonfocal/Grossly Intact
Anticipated Discharge: > 48 hours
Subjective/Interval History
-
Date of Service: November 20, 2024
Objective Data
-
Labs:
Laboratory Results
11/20/24
03:51
WBC 27.4 H
Hgb 10.0 L
Hct 28.3 L
Plt Count 239
Sodium 138
Potassium 3.8
Chloride 106
Carbon Dioxide 25
BUN 32 H
Creatinine 1.0
Glucose 102 H
Calcium 7.8 L
Total Bilirubin 0.5
AST 101 H
ALT 63 H
Alkaline Phosphatase 139 H
Vital Signs:
Vital Signs
Temp Pulse Resp BP Pulse Ox
97.7 F 109 18 134/92 97
11/20/24 11:58 11/20/24 12:12 11/20/24 12:12 11/20/24 12:12 11/20/24 08:00
I&O
11/19/24 11/20/24 11/21/24
06:59 06:59 06:59
Intake Total 1093.7 / 1093.7 497.2 / 497.2
Output Total 5 / 2124 900 / 900 1450 / 1450
Balance -1031.3 / -1031.3 -402.8 / -402.8 -1450 / -1450
[2024-11-21 08:10] LABS: Glucose - Point of Care 96 mg/dl (70-99)
--- NOTE | 2024-11-21 08:50 | W.PN.CD ---
Today's Communication / Plan
-
Increase dilt to 60 qid
BP are marginal and if decrease would likely need to switch to amio again in interim until improvement
Impression / Plan
-
Background: 79M with RCC s/p nephrectomy, hypothyroidism, and ambulatory dysfunction (bedbound) who presented to the emergency department with a chief complaint of shortness of breath. He was diagnosed with COVID-19 5 days prior to arrival. He was
intubated by EMS.
Acute hypoxic respiratory failure, multifactorial
-Improved
Septic shock
-DDx: PNA and possible UTI
- phenylephrine, off
HFpEF, acute
- Weight has increased 95.6 => 102 kg =>101
- CXR suspects increasing right pleural effusion
- cont lasix
Atrial fibrillation with rapid ventricular response
- rate control options limited by BP. HR 110-130s at rest.
- Increase dilt to 60 mg qid; BP are lower this AM and overnight likely from sleeping; monitor may need stop dilt and start amio again
- No known history of AFib, was in sinus Sep 2024 at outside hospital
- [id number]: score at least 5 (Heart failure, age 75 or more, prior Stroke/TIA)
- now on Eliquis for AF
RCC s/p nephrectomy, renal function stable
Prior CVA
Recent subdural hematoma
- Per notes Reviewed with Dr Wilcox on 11/17/2024. She may chose to have neurology/neurosurgery comment on full dose anticoagulation
Bedbound
SUBJECTIVE:
Tells me his hands hurt; otherwise tired this AM
DATA:
Echocardiogram, 11/17/2024:
Technically difficult study with fair acoustic windows.
Normal biventricular size and systolic function without regional wall motion
abnormality.
Mild concentric left ventricular hypertrophy.
Mildly dilated left atrium.
Mild mitral regurgitation.
Estimated PASP 36 mmHg, assuming RA 3 mmHg.
No prior study available for comparison.
Physical Exam
Vital Signs/Labs
Vital Signs
Temp Pulse Resp BP Pulse Ox
99.3 F 123 42 94/65 94
11/20/24 22:46 11/21/24 03:00 11/21/24 03:00 11/21/24 02:00 11/21/24 03:00
11/20/24 11/21/24 11/22/24
06:59 06:59 06:59
Actual Weight 220 lb 7.396 oz
11/21/24 03:31
11/21/24 03:31
PT 14.8 Sec (11.4-14.6) H 11/16/24 04:37
INR 1.13 11/16/24 04:37
APTT 128.7 Sec (23.4-35.0) H 11/18/24 02:32
Magnesium 2.0 mg/dl (1.6-2.3) 11/21/24 03:31
Triglycerides 113 mg/dl (10-149) 11/17/24 03:39
Free T4 1.87 ng/dl (0.78-2.19) 11/15/24 03:01
11/14/24 11/18/24
15:54 02:32
Wsv-M-Sqpjmyapcgx Pept [id number]
Physical Exam
Constitutional: No acute distress
EENT: Anicteric
Cardiovascular: Rhythm/rate is irregular and Pedal edema present
Respiratory: Other (poor inspiratory effort; decreased b/s b/l)
GI: Soft
Neuro/Psych: Alert and Oriented
Data Reviewed
-
Date of Service: November 21, 2024
EKG: Tracing Personally Visualized and interpreted (af)
Echo: Report Reviewed by me
Labs: Labs Reviewed by me
[2024-11-21] MEDS: ELIQUIS 5 MG PO ×2 (09:09→20:38)
[2024-11-21] MEDS: LASIX 40 MG IV ×2 (09:10→18:11)
[2024-11-21] MEDS: CARDIZEM PO (09:10)
--- NOTE | 2024-11-21 10:03 | VATNOTE ---
VAT Rounds: assessed for need for IJ TLC, may need to restart on amiodarone, will reassess for need tomorrow.
--- NOTE | 2024-11-21 11:21 | CM ---
Patient with Hx CVA and recent subdural hematorma with Dx Hypoxemic respiratory failure, Sepsis secondary to COVID pneumonia, New atrial fibrillation, HF. Receiving IV Lasix. Dysphagia diet. Diarrhea/rectal trumpet. PT/OT recommend skilled
rehab. Per nurse; A/O forgetful.
Spoke with [facility]; they are able to accept the patient Sunday or later when medically ready, and once his diarrhea is resolved/rectal tube is discontinued.
Spoke with patient's Ifeoma, daughter Marlene & son; they are still deciding between [facility]. They are also considering that both patient and will need usp care in assisted living.
Phone call to [facility]; left message asking if patient would be able to be accepted for 11/24.
SNF referrals updated in [facility].
Plan [facility] vs [facility] once family decides & medically ready, possibly 11/24.
[2024-11-21] MEDS: CARDIZEM 60 MG PO ×3 (13:40→20:38)
--- NOTE | 2024-11-21 14:30 | PTCARENOTE ---
Addendum entered by Santana Tyler, RN 11/21/24 18:42:
Patients family stated that they would like to look in to [facility] as another SNF option, stated they spoke with Char[facility] at [facility]. CM not here, will pass on to oncoming nurse.
Original Note:
Patient AAOx3, slow responses at times, flat affect. Family at bedside throughout the day. Afib on monitor, rates communicated to MD. BPs soft at times. Poor appetite today, ensure added. Will closely monitor.
[2024-11-21] MEDS: TYLENOL 650 MG PO ×2 (15:01→20:41)
[2024-11-21] MEDS: SEROQUEL 25 MG PO (20:38)
[2024-11-22] VITALS (12 sets, daily range): BP systolic 97–128; BP diastolic 61–90; BMI 30.2
[2024-11-22 03:47] LABS: Hematocrit 28.2 % (39.0-52.0); Hemoglobin 9.6 g/dL (13.0-18.0); Mean Corpuscular Hgb 31.4 pg (27.0-31.0); Mean Corpuscular Volume 92.2 fL (80.0-94.0); Mean Platelet Volume 9.2 fL (7.4-10.4); Platelet Count 203 10^3/uL (130-400); Red Blood Cell Count 3.06 10^6/uL (4.70-6.10)
[2024-11-22 04:10] LABS: Blood Urea Nitrogen 25 mg/dl (9-20); Calcium 7.9 mg/dl (8.4-10.2); Carbon Dioxide 26 mmol/L (22-30); Chloride 108 mmol/L (98-107); Estimated Creatinine Clearance 78 ml/min; Glucose 76 mg/dl (70-99); Magnesium 2.1 mg/dl (1.6-2.3); Phosphorus 3.1 mg/dl (2.5-4.5); Potassium 3.6 mmol/L (3.5-5.1); Sodium 140 mmol/L (135-145); eGFR > 60.00
--- NOTE | 2024-11-22 04:37 | PTCARENOTE ---
No acute events overnight. Remains afib on the monitor. Moy and rectal trumpet in place.
[2024-11-22] MEDS: SYNTHROID 175 MCG PO (05:22)
--- NOTE | 2024-11-22 08:56 | W.PN.CD ---
Today's Communication / Plan
-
Continue Dilt, Lasix, Eliquis
Impression / Plan
-
Background: 79M with RCC s/p nephrectomy, hypothyroidism, and ambulatory dysfunction (bedbound) who presented to the emergency department with a chief complaint of shortness of breath. He was diagnosed with COVID-19 5 days prior to arrival. He was
intubated by EMS.
Improved acute hypoxic respiratory failure, multifactorial
Resolved septic shock
HFpEF, prior Dx, was on Lasix 40 daily at home
- Weight, admit 93 kg and now (11/22/2024) 98.3 kg
- Effusion to small to tap by U/S 11/19/2024
- Cont lasix 40 IV BID
- Later optimize GDMT
Atrial fibrillation, new, so far persisting
- Rates better on Dilt 60 QID
- No known history of AFib, was in sinus Sep 2024 at outside hospital
- [id number]: score at least 5 (Heart failure, age 75 or more, prior Stroke/TIA)
- On Eliquis now
RCC s/p nephrectomy, renal function stable
Prior CVA
Recent subdural hematoma
Bedbound
Abnormal CT with 2.2 cm nodule left nephrectomy bed => will need f/u
Subjective: Denies CP or dyspnea
Data:
Echocardiogram, 11/17/2024:
Technically difficult study with fair acoustic windows.
Normal biventricular size and systolic function without regional wall motion
abnormality.
Mild concentric left ventricular hypertrophy.
Mildly dilated left atrium.
Mild mitral regurgitation.
Estimated PASP 36 mmHg, assuming RA 3 mmHg.
No prior study available for comparison.
Physical Exam
Vital Signs/Labs
Vital Signs
Temp Pulse Resp BP Pulse Ox
97.4 F 130 23 112/61 94
11/22/24 07:24 11/22/24 05:27 11/22/24 05:27 11/22/24 05:27 11/21/24 22:00
11/21/24 11/22/24 11/23/24
06:59 06:59 06:59
Actual Weight 98.3 kg
11/22/24 03:27
11/22/24 03:27
PT 14.8 Sec (11.4-14.6) H 11/16/24 04:37
INR 1.13 11/16/24 04:37
APTT 128.7 Sec (23.4-35.0) H 11/18/24 02:32
Magnesium 2.1 mg/dl (1.6-2.3) 11/22/24 03:27
Triglycerides 113 mg/dl (10-149) 11/17/24 03:39
Free T4 1.87 ng/dl (0.78-2.19) 11/15/24 03:01
11/14/24 11/18/24
15:54 02:32
Oki-V-Xanqfwdgdgh Pept [id number]
Physical Exam
Constitutional: No acute distress
EENT: Anicteric
Cardiovascular: Pedal edema is absent and Rhythm/rate is irregular
Respiratory: Respiratory effort normal and Crackles Absent
GI: Soft and Distention absent
Neuro/Psych: Alert
Data Reviewed
-
Date of Service: November 22, 2024
[2024-11-22] MEDS: CARDIZEM 60 MG PO ×3 (08:57→19:30)
[2024-11-22] MEDS: LASIX 40 MG IV ×2 (08:57→16:14)
[2024-11-22] MEDS: ELIQUIS 5 MG PO ×2 (08:57→19:30)
--- NOTE | 2024-11-22 08:57 | W.PN.HOSP.TC ---
Today's Communication/Plan
-
see bold
Assessment / Plan
Assessment / Plan
HPI: 79-year-old man with past medical history recent CVA with left-sided deficits bedbound at baseline, renal cell cancer status post kidney resection, hypothyroidism, presenting for shortness of breath and unresponsiveness s/p intubation in the
field by EMS with persistently low blood pressures post fluid requiring Levophed initiation. CXR shows right sided pneumonia; s/p OG tube with dark black/brown fluid. He was admitted for septic shock 2/ COVID with superimposed bacterial infection,
new atrial fibrillation, no e/o active GI bleed.
A/P:
#Hypoxemic respiratory failure
#Sepsis (tachycardia, hypotension, leukocytosis/bandemia ) secondary to COVID pneumonia with superimposed bacterial infection
#Septic shock secondary to covid pneumonia
-Appreciate board certified arts therapist input, extubated 11/18
-Chest x-ray shows mild opacities in the bilateral lung bases likely viral pneumonia from COVID
-MRSA screen is positive. Does not qualify for remdesivir given DAO, solitary kidney
-Patient has completed 5 days of IV dexamethasone, status post full course of IV Zosyn
-Required 3 pressors on 11/15; off all pressors 11/19
-11/20 off isolation precautions. Currently on room air, off pressors
#New Onset atrial fibrillation with RVR
-Echo reviewed. Cardiology following
-Transitioned from IV amiodarone and IV heparin drip to oral Cardizem and Eliquis 11/20
-Patient is still tachycardic, cardiology increased oral Cardizem to 60 mg 4 times daily 11/21
-Decrease Synthroid dosing when resume (see below)
Heart Failure preserved EF
-hold LITIGATOR Lasix 40mg PO QD
-IV lasix as per cards
Hypokalemia
-Replete as needed
Recent subdural hematoma on 10/02/24
-Head CT here neg
Hypothyroidism
- Synthroid held while NPO
-His TSH was < 0.02 on admit
-Levothyroxine resumed at lower dose on 11/18
-Follow up TFT's in 4-6 weeks
History of renal cell carcinoma status post kidney resection
DAO
NAGMA
-Resolved
Brown output from OG tube
-Protonix BID
-hg has been stable; IV Heparin gtt initiated on 11/16 for Afib (high risk with hx CVA)
-may have been vomiting in setting of constipation (see below)
-monitor
Constipation/Fecal Impaction seen on CT
-miralax daily
Abnormal CT with 2.2 cm nodule left nephrectomy bed
-patient will need outpatient follow up
Transaminitis likely secondary to COVID
-Continue to monitor
Hyponatremia secondary to COVID
-Resolved
Possible Urinary tract infection
-Status post full course of Zosyn
Obesity due to excess calories
-Affects all aspects of care
Recent CVA with left-sided deficit
-Bedbound at baseline
Poor oral intake
-Start protein supplement
DVT prophylaxis�Eliquis
Full Code
Updated son Freddy at bedside 11/22
Dispo - [facility] SN[facility] vs [facility] once family decides & medically ready, possibly Mon 11/24
Total time spent to see the patient on the floor, examine the patient, review data and lab results, discuss treatment plan with patient, nursing staff around 51 minutes.
Physical Exam
General: Obese, no acute distress
HEENT: Normocephalic, Atraumatic, EOMI, MMM
Respiratory: Clear to Auscultation bilaterally
Cardiac: Normal S1/S2, tachycardic rate and irregular rhythm
GI: Soft, Nontender, Nondistended, Normal Bowel Sounds
Extremities: No Clubbing, Cyanosis
Mild lower extremity edema
Neuro: Nonfocal/Grossly Intact
Anticipated Discharge: > 48 hours
Subjective/Interval History
-
Date of Service: November 21, 2024
Patient reports feeling 'lousy'. Reports his cough is worse. Denies shortness of breath. No fever, no vomiting. No chest pain.
Objective Data
-
Labs:
Laboratory Results
11/21/24
03:31
Sodium 139
Potassium 3.2 L
Chloride 107
Carbon Dioxide 28
BUN 27 H
Creatinine 1.1
Glucose 90
Calcium 7.8 L
Total Bilirubin 0.5
AST 75 H
ALT 54 H
Alkaline Phosphatase 121
Vital Signs:
Vital Signs
Temp Pulse Resp BP Pulse Ox
98.5 F 116 28 112/89 94
11/21/24 07:20 11/21/24 15:00 11/21/24 15:00 11/21/24 14:52 11/21/24 15:00
I&O
11/20/24 11/21/24 11/22/24
06:59 06:59 06:59
Intake Total 497.2 / 497.2
Output Total 900 / 900 3225 / 3225
Balance -402.8 / -402.8 -3225 / -3225
--- NOTE | 2024-11-22 11:06 | CM ---
Met with son and DIL at bedside.
They request a referral also be sent to [facility] as pt's spouse has been accepted there.
Sent through [facility].
[facility] ph # [phone].
[2024-11-22] MEDS: KLOR-CON 40 MEQ PO (16:12)
[2024-11-22] MEDS: CARDIZEM PO (16:13)
[2024-11-22] MEDS: SEROQUEL 25 MG PO (19:30)
[2024-11-22] MEDS: CHLORASEPTIC/SORE THROAT SPRAY 1 SPRAY PO (19:30)
[2024-11-23] VITALS (12 sets, daily range): BP systolic 103–135; BP diastolic 61–94; BMI 29.7
[2024-11-23 04:20] LABS: Hematocrit 27.7 % (39.0-52.0); Hemoglobin 9.4 g/dL (13.0-18.0); Mean Corp Hgb Conc. 33.9 g/dL (33.0-37.0); Mean Corpuscular Hgb 31.5 pg (27.0-31.0); Mean Platelet Volume 9.5 fL (7.4-10.4); Platelet Count 207 10^3/uL (130-400); Red Blood Cell Count 2.98 10^6/uL (4.70-6.10); Red Cell Dist. Width 16.1 % (11.5-14.5); White Blood Cell Count 10.2 10^3/uL (4.8-10.8)
[2024-11-23] MEDS: SYNTHROID 175 MCG PO (04:41)
[2024-11-23 04:44] LABS: Blood Urea Nitrogen 22 mg/dl (9-20); Carbon Dioxide 29 mmol/L (22-30); Chloride 107 mmol/L (98-107); Estimated Creatinine Clearance 69 ml/min; Glucose 88 mg/dl (70-99); Potassium 3.4 mmol/L (3.5-5.1); Sodium 139 mmol/L (135-145); eGFR > 60.00
[2024-11-23] MEDS: KCL 260 MEQ IV ×2 (05:28→12:43)
--- NOTE | 2024-11-23 05:36 | PTCARENOTE ---
No acute events overnight. Am k 3.4. call centre supervisor provider made aware and ordered IV repletion.
[2024-11-23] MEDS: CARDIZEM 60 MG PO ×2 (08:13→14:00)
[2024-11-23] MEDS: ELIQUIS 5 MG PO ×2 (08:13→20:25)
[2024-11-23] MEDS: LIORESAL 5 MG PO ×2 (08:13→22:29)
[2024-11-23] MEDS: TYLENOL 650 MG PO ×2 (08:14→22:29)
[2024-11-23] MEDS: LASIX 40 MG IV ×2 (08:14→16:11)
--- NOTE | 2024-11-23 08:56 | W.PN.HOSP.TC ---
Today's Communication/Plan
-
see bold
Assessment / Plan
Assessment / Plan
HPI: 79-year-old man with past medical history recent CVA with left-sided deficits bedbound at baseline, renal cell cancer status post kidney resection, hypothyroidism, presenting for shortness of breath and unresponsiveness s/p intubation in the
field by EMS with persistently low blood pressures post fluid requiring Levophed initiation. CXR shows right sided pneumonia; s/p OG tube with dark black/brown fluid. He was admitted for septic shock 2/ COVID with superimposed bacterial infection,
new atrial fibrillation, no e/o active GI bleed.
A/P:
#Hypoxemic respiratory failure
#Sepsis (tachycardia, hypotension, leukocytosis/bandemia ) secondary to COVID pneumonia with superimposed bacterial infection
#Septic shock secondary to covid pneumonia
-Appreciate print production associate input, extubated 11/18
-Chest x-ray shows mild opacities in the bilateral lung bases likely viral pneumonia from COVID
-MRSA screen is positive. Does not qualify for remdesivir given DAO, solitary kidney
-Patient has completed 5 days of IV dexamethasone, status post full course of IV Zosyn
-Required 3 pressors on 11/15; off all pressors 11/19
-11/20 off isolation precautions. Currently on room air, off pressors
#New Onset atrial fibrillation with RVR
-Echo reviewed. Cardiology following
-Transitioned from IV amiodarone and IV heparin drip to oral Cardizem and Eliquis 11/20
-Patient is still tachycardic, cardiology increased oral Cardizem to 60 mg 4 times daily 11/21
-Decrease Synthroid dosing when resume (see below)
Heart Failure preserved EF
-hold PE MANAGER Lasix 40mg PO QD
-IV lasix as per cards
Hypokalemia
-Replete as needed
Recent subdural hematoma on 10/02/24
-Head CT here neg
Hypothyroidism
- Synthroid held while NPO
-His TSH was < 0.02 on admit
-Levothyroxine resumed at lower dose on 11/18
-Follow up TFT's in 4-6 weeks
History of renal cell carcinoma status post kidney resection
DAO
NAGMA
-Resolved
Brown output from OG tube
-Protonix BID
-hg has been stable; IV Heparin gtt initiated on 11/16 for Afib (high risk with hx CVA)
-may have been vomiting in setting of constipation (see below)
-monitor
Constipation/Fecal Impaction seen on CT
-miralax daily
Abnormal CT with 2.2 cm nodule left nephrectomy bed
-patient will need outpatient follow up
Transaminitis likely secondary to COVID
-Continue to monitor
Hyponatremia secondary to COVID
-Resolved
Possible Urinary tract infection
-Status post full course of Zosyn
Obesity due to excess calories
-Affects all aspects of care
Recent CVA with left-sided deficit
-Bedbound at baseline
Poor oral intake
-Started protein supplement, encourage oral intake
DVT prophylaxis�Eliquis
Full Code
Updated son Freddy at bedside 11/22
[facility] & medically ready
Total time spent to see the patient on the floor, examine the patient, review data and lab results, discuss treatment plan with patient, nursing staff around 51 minutes.
Physical Exam
General: Obese, no acute distress
HEENT: Normocephalic, Atraumatic, EOMI, MMM
Respiratory: Clear to Auscultation bilaterally
Cardiac: Normal S1/S2, tachycardic rate and irregular rhythm
GI: Soft, Nontender, Nondistended, Normal Bowel Sounds
Extremities: No Clubbing, Cyanosis
Mild lower extremity edema
Neuro: Nonfocal/Grossly Intact
Anticipated Discharge: 24 - 48 hours
Subjective/Interval History
-
Date of Service: November 23, 2024
Patient continues to have poor oral intake. He still feels lousy. Denies shortness of breath, denies chest pain. No fever, no vomiting.
Objective Data
-
Labs:
Laboratory Results
11/23/24
03:36
WBC 10.2
Hgb 9.4 L
Hct 27.7 L
Plt Count 207
Sodium 139
Potassium 3.4 L
Chloride 107
Carbon Dioxide 29
BUN 22 H
Creatinine 0.9
Glucose 88
Calcium 8.0 L
Vital Signs:
Vital Signs
Temp Pulse Resp BP Pulse Ox
98.0 F 114 23 135/89 96
11/23/24 07:54 11/23/24 06:00 11/23/24 06:00 11/23/24 06:00 11/23/24 06:00
I&O
11/22/24 11/23/24 11/24/24
06:59 06:59 06:59
Intake Total 120 / 120 720 / 720
Output Total 1750 / 1750 2049
Balance -1630 / -1630 -1330 / -1330
--- NOTE | 2024-11-23 09:52 | PTCARENOTE ---
pt c/o pain with swallowing. noted to cough after drinking thin liquids. will discuss with sppech and hospitalist.k ridr infusing. pt was unable to drink all of oral potassium yesterday.
--- NOTE | 2024-11-23 12:10 | PTCARENOTE ---
per discussion with speech therapy will keep pt npo except for crushed meds in applesauce. speech will reeval either later today or in am. discussed with hospitalist.
--- NOTE | 2024-11-23 15:04 | CM ---
CM received a call from patient's family. Reported SNF preference is [facility]
Updated clinical sent to [facility] via [facility]; CM will follow up with facility tomorrow and get bed availability status
--- NOTE | 2024-11-23 15:44 | W.PN.CD ---
Today's Communication / Plan
-
Continue Lasix 40 IV BID
Continue Eliquis,
increase Dilt 60 => 90 QID
With new Aldactone will need BMP in 2, 4 and 8-12 weeks after discharge
Impression / Plan
-
Background: 79M with RCC s/p nephrectomy, hypothyroidism, and ambulatory dysfunction (bedbound) who presented to the emergency department with a chief complaint of shortness of breath. He was diagnosed with COVID-19 5 days prior to arrival. He was
intubated by EMS.
Improved acute hypoxic respiratory failure, multifactorial
Resolved septic shock
HFpEF, prior Dx, was on Lasix 40 daily at home
- Weight, admit 93 kg and 98.3 (11/22/2024) => 96.5 (11/23/2024)
- Effusion to small to tap by U/S 11/19/2024
- Cont lasix 40 IV BID => weight not at goal, still with edema
- Later optimize GDMT
- Will stop KCl and add MRA
- Later add [id number]=> will ask case management to [facility])
Atrial fibrillation, new, so far persisting
- Rates better on Dilt 60 QID => increase to 90 QID as rates over 100
- No known history of AFib, was in sinus Sep 2024 at outside hospital
- [id number]: score at least 5 (Heart failure, age 75 or more, prior Stroke/TIA)
- On Eliquis now
RCC s/p nephrectomy, renal function stable
Prior CVA
Recent subdural hematoma
Bedbound
Abnormal CT with 2.2 cm nodule left nephrectomy bed => will need f/u
Subjective: Denies CP or dyspnea
Data:
Echocardiogram, 11/17/2024:
Technically difficult study with fair acoustic windows.
Normal biventricular size and systolic function without regional wall motion
abnormality.
Mild concentric left ventricular hypertrophy.
Mildly dilated left atrium.
Mild mitral regurgitation.
Estimated PASP 36 mmHg, assuming RA 3 mmHg.
No prior study available for comparison.
Physical Exam
Vital Signs/Labs
Vital Signs
Temp Pulse Resp BP Pulse Ox
98.0 F 129 24 118/73 94
11/23/24 11:20 11/23/24 14:00 11/23/24 14:00 11/23/24 14:00 11/23/24 14:31
11/22/24 11/23/24 11/24/24
06:59 06:59 06:59
Actual Weight 98.3 kg 96.5 kg
11/23/24 03:36
11/23/24 03:36
PT 14.8 Sec (11.4-14.6) H 11/16/24 04:37
INR 1.13 11/16/24 04:37
APTT 128.7 Sec (23.4-35.0) H 11/18/24 02:32
Magnesium 2.1 mg/dl (1.6-2.3) 11/22/24 03:27
Triglycerides 113 mg/dl (10-149) 11/17/24 03:39
Free T4 1.87 ng/dl (0.78-2.19) 11/15/24 03:01
11/14/24 11/18/24
15:54 02:32
Ygp-D-Lnhvmedyrdw Pept [id number]
Physical Exam
Constitutional: No acute distress
Cardiovascular: Rhythm/rate is irregular, Pedal edema present and S1S2 is normal
Respiratory: Respiratory effort normal and Lungs clear to auscul.
GI: Distention absent
Neuro/Psych: Alert
Data Reviewed
-
Date of Service: November 23, 2024
[2024-11-23] MEDS: CARDIZEM 90 MG PO ×2 (18:39→20:24)
[2024-11-23] MEDS: SEROQUEL 25 MG PO (20:25)
[2024-11-24] VITALS (17 sets, daily range): BP systolic 72–139; BP diastolic 46–88; PULSE 104; O2SAT 96; BMI 29.2; BMI 30.9
--- NOTE | 2024-11-24 00:37 | PTCARENOTE ---
Addendum entered by Kerri Lorenz RN 11/24/24 04:51:
call center director provider made aware and ordered 02.
Original Note:
Patient desatted to 65 percent while asleep. No orders for 02. Placed on 2 liters NC. Patient with productive cough and coarse lung sounds. Afebrile. Unofficially NPO due to coughing with intake during the day.
[2024-11-24] MEDS: SYNTHROID 175 MCG PO (04:38)
[2024-11-24 04:45] LABS: Hematocrit 28.9 % (39.0-52.0); Hemoglobin 9.9 g/dL (13.0-18.0); Mean Corp Hgb Conc. 34.3 g/dL (33.0-37.0); Mean Corpuscular Hgb 31.7 pg (27.0-31.0); Mean Corpuscular Volume 92.6 fL (80.0-94.0); Mean Platelet Volume 9.2 fL (7.4-10.4); Platelet Count 198 10^3/uL (130-400); Red Blood Cell Count 3.12 10^6/uL (4.70-6.10); Red Cell Dist. Width 15.9 % (11.5-14.5); White Blood Cell Count 6.9 10^3/uL (4.8-10.8)
[2024-11-24 05:14] LABS: Blood Urea Nitrogen 18 mg/dl (9-20); Calcium 8.1 mg/dl (8.4-10.2); Carbon Dioxide 27 mmol/L (22-30); Chloride 108 mmol/L (98-107); Estimated Creatinine Clearance 77 ml/min; Glucose 86 mg/dl (70-99); Potassium 3.4 mmol/L (3.5-5.1); Sodium 142 mmol/L (135-145); eGFR > 60.00
--- NOTE | 2024-11-24 05:43 | PTCARENOTE ---
Am k 3.4. call center receptionist provider made aware and ordered IV repletion.
--- NOTE | 2024-11-24 06:00 | W.PN.HOSP.TC ---
Today's Communication/Plan
-
see a/p
Assessment / Plan
Assessment / Plan
Physical Exam
General: Obese, no acute distress
HEENT: Normocephalic, Atraumatic, EOMI, MMM
Respiratory: Clear to Auscultation bilaterally
Cardiac: Normal S1/S2, tachycardic rate and irregular rhythm
GI: Soft, Nontender, Nondistended, Normal Bowel Sounds
Extremities: No Clubbing, Cyanosis, Mild lower extremity edema
Neuro: AOx3 conversant coherent
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
fluid required Levophed support. CXR showed right sided pneumonia; s/p OG tube with dark black/brown fluid. He was admitted for septic shock 2/2 COVID with superimposed bacterial infection, new atrial fibrillation.
A/P:
#Hypoxemic respiratory failure
#Sepsis (tachycardia, hypotension, leukocytosis/bandemia ) secondary to COVID pneumonia with superimposed bacterial infection
#Septic shock secondary to covid pneumonia
-Appreciate oil rig roughneck input, extubated 11/18
-Chest x-ray showed mild opacities in the bilateral lung bases likely viral pneumonia from COVID
-MRSA screen positive. Did not qualify for Remdesivir given DAO, solitary kidney
-Patient completed 5 days of IV dexamethasone, status post full course of IV Zosyn
-Required 3 pressors on 11/15; off all pressors 11/19
-11/20 off isolation precautions.
-briefly weaned off oxygen supplementation, required supplementation overnight 11/23-11/24
-speech eval w VSE appreciated cleared for minced moist diet with mildly thick (nectar thick) liquids
#New Onset atrial fibrillation with RVR
-Echo reviewed. Cardiology following
-Transitioned from IV amiodarone and IV heparin drip to oral Cardizem and Eliquis 11/20
-Cardizem titrated up to 90 mg QID as per Cardio
-Home Synthroid dose reduced (see below)
Heart Failure preserved EF
-hold MICROGRINDER OPERATOR Lasix 40mg PO QD
-IV lasix, new Spironolactone 12.5 mg daily as per cardio
Hypokalemia
-monitor and replete as necessary
Recent subdural hematoma on 10/02/24
-Head CT here neg
Hypothyroidism
- Synthroid held while NPO
-His TSH was < 0.02 on admit
-Levothyroxine resumed at lower dose on 11/18
-Follow up TFT's in 4-6 weeks
History of renal cell carcinoma status post kidney resection
DAO
NAGMA
-Resolved
Brown output from OG tube
-Protonix BID
-hg has been stable; IV Heparin gtt initiated on 11/16 for Afib (high risk with hx CVA)
-may have been vomiting in setting of constipation (see below)
-monitor
Constipation/Fecal Impaction seen on CT
-miralax daily
Abnormal CT with 2.2 cm nodule left nephrectomy bed
-patient will need outpatient follow up
Transaminitis likely secondary to COVID
-Continue to monitor
Hyponatremia secondary to COVID
-Resolved
Possible Urinary tract infection
-Status post full course of Zosyn
Obesity due to excess calories
-Affects all aspects of care
Recent CVA with left-sided deficit
-Bedbound at baseline
Poor oral intake
-Started protein supplement, encourage oral intake
DVT prophylaxis�Eliquis
Full Code
Dispo - [facility] vs [facility] once family decides & medically ready
Total time spent to see the patient on the floor, examine the patient, review data and lab results, discuss treatment plan with patient, nursing staff around 50 minutes.
Anticipated Discharge: 24 - 48 hours
Subjective/Interval History
-
Date of Service: November 24, 2024
reporting thirst. made npo overnight due to concern aspiration, increased oxygen requirement 2L previously on room air. Patient noted coughing with food/drink. AOx3 conversant coherent.
Objective Data
-
Labs:
Laboratory Results
11/24/24
03:59
WBC 6.9
Hgb 9.9 L
Hct 28.9 L
Plt Count 198
Sodium 142
Potassium 3.4 L
Chloride 108 H
Carbon Dioxide 27
BUN 18
Creatinine 0.8
Glucose 86
Calcium 8.1 L
Vital Signs:
Vital Signs
Temp Pulse Resp BP Pulse Ox
97.9 F 92 19 125/80 99
11/24/24 03:51 11/24/24 04:00 11/24/24 04:00 11/24/24 04:00 11/24/24 04:00
I&O
11/22/24 11/23/24 11/24/24
06:59 06:59 06:59
Intake Total 120 / 120 720 / 720 500 / 500
Output Total 1750 / 1750 2049 / 2049 1700 / 1700
Balance -1630 / -1630 -1330 / -1330 -1200 / -1200
[2024-11-24] MEDS: KCL 270 MEQ IV (06:05)
--- NOTE | 2024-11-24 08:25 | W.PN.CD ---
Today's Communication / Plan
-
- Continue lasix 40 IV BID.
Impression / Plan
-
Background: 79M with RCC s/p nephrectomy, hypothyroidism, and ambulatory dysfunction (bedbound) who presented to the emergency department with a chief complaint of shortness of breath. He was diagnosed with COVID-19 5 days prior to arrival. He was
intubated by EMS.
Improved acute hypoxic respiratory failure, multifactorial
Resolved septic shock
HFpEF, prior Dx, was on Lasix 40 daily at home
- Weight, admit 93 kg and 98.3 (11/22/2024) => 96.5 (11/23/2024)
- Effusion to small to tap by U/S 11/19/2024
- Weight not at goal, still volume overloaded on examination (edema).
- Continue lasix 40 IV BID.
- Later optimize GDMT--add SGLT2-I.
Newly diagnosed persistent atrial fibrillation
-Fairly rate controlled; continue Cardizem 90 mg QID.
- No known history of AFib, was in sinus Sep 2024 at outside hospital
- [id number]: score at least 5 (Heart failure, age 75 or more, prior Stroke/TIA)
-Started on Eliquis; continue.
RCC s/p nephrectomy, renal function stable
Prior CVA
Recent subdural hematoma
Bedbound
Abnormal CT with 2.2 cm nodule left nephrectomy bed => will need f/u
Data:
Echocardiogram, 11/17/2024:
Technically difficult study with fair acoustic windows.
Normal biventricular size and systolic function without regional wall motion
abnormality.
Mild concentric left ventricular hypertrophy.
Mildly dilated left atrium.
Mild mitral regurgitation.
Estimated PASP 36 mmHg, assuming RA 3 mmHg.
No prior study available for comparison.
Physical Exam
Vital Signs/Labs
Vital Signs
Temp Pulse Resp BP Pulse Ox
97.9 F 88 23 139/62 98
11/24/24 03:51 11/24/24 06:00 11/24/24 06:00 11/24/24 06:00 11/24/24 06:00
11/23/24 11/24/24 11/25/24
06:59 06:59 06:59
Actual Weight 96.5 kg 94.8 kg
11/24/24 03:59
11/24/24 03:59
PT 14.8 Sec (11.4-14.6) H 11/16/24 04:37
INR 1.13 11/16/24 04:37
APTT 128.7 Sec (23.4-35.0) H 11/18/24 02:32
Magnesium 2.1 mg/dl (1.6-2.3) 11/22/24 03:27
Triglycerides 113 mg/dl (10-149) 11/17/24 03:39
Free T4 1.87 ng/dl (0.78-2.19) 11/15/24 03:01
11/14/24 11/18/24
15:54 02:32
[id number] Pept [id number]
Physical Exam
Constitutional: No acute distress
EENT: Anicteric
Cardiovascular: Rhythm & rate is regular, Systolic murmur absent, Systolic murmur present (2+) and S1S2 is normal
Respiratory: Respiratory effort normal and Rhonchi Present
GI: Soft
Neuro/Psych: Alert
Other: Skin (warm)
Data Reviewed
-
Date of Service: November 24, 2024
EKG: Tracing Personally Visualized and interpreted (Telemetry: AFIB)
Labs: Labs Reviewed by me
[2024-11-24] MEDS: ELIQUIS 5 MG PO ×2 (09:15→20:01)
[2024-11-24] MEDS: CARDIZEM 90 MG PO ×4 (09:16→21:50)
[2024-11-24] MEDS: LASIX 40 MG IV ×2 (09:16→15:02)
[2024-11-24] MEDS: ALDACTONE 12.5 MG PO (09:16)
[2024-11-24] MEDS: FLUSH (NSS) 1 FLUSH IV ×2 (09:17→15:03)
[2024-11-24 09:48] LABS: Magnesium 2.1 mg/dl (1.6-2.3); Phosphorus 3.2 mg/dl (2.5-4.5)
--- NOTE | 2024-11-24 10:55 | PTOTSP ---
Speech Language Pathology
Pt seen for dysphagia tx. Made NPO by RN yesterday for coughing with P.O. intake. Seen this date with ice chips, thin liquids, puree, and IDDSI 6 solids. Adequate mastication, bolus formation, and A-P transit noted with no oral residue. With
last bite of peaches, strong coughing episode noted. Pt stated this is what has been intermittently happening. He denied this happening at baseline. Pt also complaining of odynophagia. Last PROGRAMMING EQUIPMENT OPERATOR session, pt was complaining of some discomfort in
chest with cold liquids. CXR completed this date was limited, but showed known small R pleural effusion. WBC 6.9.
Recommend:
(1) VSE
(2) Thin liquids only until VSE completed
(3) Meds whole with liquids as tolerated
(4) Consider GI consult
(5) PROGRAMMING EQUIPMENT OPERATOR to continue to follow
--- NOTE | 2024-11-24 10:56 | W.PN.ID1 ---
Date of Service
Date of Service: November 24, 2024
Today's Communication
Observe closely off antibiotics
Assessment / Plan
Leukocytosis
-In addition to underlying process, also steroid effect.
VDRF
Clinical sepsis
COVID-19
Hyponatremia
- improved/resolved
DAO
Lactic acidosis; improved
Pyuria/bacteriuria
Hx of CVA (06/2024)
Hx renal cell carcinoma
Hypothyroidism
Recommendations:
Leukocytosis resolved.
Patient without significant respiratory symptomatology.
Prior respiratory cultures noted, but at present do not suspect pneumonia (clinical symptomatology not present, and no infiltrate on chest x-ray.)
Continue off antibiotics.
Monitor white count and temperature curve.
����������������������������������������������������������
Chief Complaint
-: Leukocytosis, Clinical Sepsis and Other (COVID-19)
Subjective / Review of Systems
Review of Systems: No Fever, No Chills and No Cough
Vital Signs / Physical Exam
Vital Signs
Vital Signs
Temp Pulse Resp BP Pulse Ox
98.3 F 88 23 139/62 98
11/24/24 07:35 11/24/24 06:00 11/24/24 06:00 11/24/24 06:00 11/24/24 06:00
Physical Exam
Constitutional: Comfortable, Chronically Ill and Non-toxic
Head: Normocephalic
Cardiovascular: S1/S2; Negative S3/S4
Pulmonary: Clear and Non Labored
Gastrointestinal: Soft, Non Distended and Normal Bowel Sounds
Genito-Urinary: Ricks and Clear Urine
Skin: Warm and Dry
Neurological: Awake
Objective Data
Lab Data
Lab Results
11/24/24 03:59
11/24/24 03:59
PT 14.8 Sec (11.4-14.6) H 11/16/24 04:37
INR 1.13 11/16/24 04:37
APTT 128.7 Sec (23.4-35.0) H 11/18/24 02:32
Estimated Creat Clear 77 ml/min 11/24/24 03:59
Lactic Acid 0.9 mmol/L (0.7-2.0) 11/15/24 13:16
Total Bilirubin 0.5 mg/dl (0.2-1.3) 11/21/24 03:31
AST 75 U/L (17-59) H 11/21/24 03:31
ALT 54 U/L (0-50) H 11/21/24 03:31
Alkaline Phosphatase 121 U/L (38-126) 11/21/24 03:31
Most recent labs reviewed.
Micro Results:
11/17/24 13:23 Respiratory Culture - Final
Sputum Klebsiella pneumoniae-ESBL
Gram Stain - Final
11/14/24 16:03 Blood Culture - Final
Blood/Venous No Growth - Final Report
11/14/24 15:53 Blood Culture - Final
Blood/Venous No Growth - Final Report
11/14/24 23:45 Respiratory Culture - Final
Sputum Usual Respiratory Marjan
Gram Stain - Final
11/14/24 15:54 Urine Culture - Final
Urine Escherichia coli
11/15/24 03:01 MRSA Screen - Final
Nose Staph aureus MRSA
11/14/24 15:53 Influenza Types A & B (KOBI) - Final
Nasal Swab Negative for Influenza A & B, NAAT
Negative results must be combined with clinical observations
and patient history.
Nucleic Acid Amplification test (NAAT)performed on the
[employer] platform.
Imaging:
11/24/2024 CXR (2 view): No pneumothorax or mediastinal shift. No noted infiltrates.
11/19/2024 CXR (portable): Right basilar opacity suggesting small right pleural effusion and likely slightly decreased from prior. No pneumothorax or left pleural effusion.
11/14/2024 CT C/A/P: No filling defects in the main or lobar pulmonary arteries to indicate acute PE. Heart is normal in size without pericardial effusion. Small bilateral pleural effusions are noted. There is compressive atelectasis in the
posterior aspect of the bilateral lower lobes. No focal consolidation, pleural effusion or pneumothorax is seen. ET tube is present with tip in the mid thoracic trachea. The liver, spleen, bile ducts, pancreas and adrenal glands are unremarkable.
The gallbladder is distended and shows mild fat stranding. No cholelithiasis is seen. No hydronephrosis noted. Surgically absent left kidney. A 2.2 cm nodule in the left retroperitoneum in the region of the left nephrectomy bed with peripheral
soft tissue attenuation and central low-attenuation is noted. No bowel wall thickening is noted. No obstruction or inflammation seen. A large amount of stool is in the rectum. Please see full dictation for additional detail. Film personally
viewed.
Chest X-Ray: Image Reviewed and Report Reviewed
--- NOTE | 2024-11-24 12:47 | WOUNDNOTE ---
BUTTOCKS/POSTERIOR THIGHS
--- NOTE | 2024-11-24 12:49 | WOUNDNOTE ---
GLUTEAL CLEFT VERTICAL AND B/L BUTTOCKS PROXIMAL FROM RECTUM
--- NOTE | 2024-11-24 12:52 | WOUNDNOTE ---
L LATERAL LOWER LEG
--- NOTE | 2024-11-24 12:55 | WOUNDNOTE ---
[facility] RN note: Patient admitted with respiratory failure, COVID
See H&P for complete history.
PMH: Past Medical History: Reports Other ( recent CVA with left-sided deficits bedbound at baseline, renal cell cancer status post kidney resection, hypothyroidism)
Past Surgical History: Reports Other (kidney resection )
Wound Location and type/assessment: Patient admitted with: MASD of buttocks and perineum. Chronic Ricks in use. Had a rectal tube that has since been discontinued. DTI developed b/l buttocks and gluteal cleft vertically. R buttock with small open
area, possible old mole along dark maroon area. Not convinced DTI is due to rectal tube since approximately 6cm proximal from rectum and has in cleft area also. Posterior thigh with redness, L posterior thigh with serous flat blister. Ulcers
suspected device related. L lateral lower leg with dark maroon skin, suspect device related from CAM splint for foot drop. Has fleece padding over hard plastic, where wound located on leg. Nurse Ev at bedside assisting and aware keeping boot
off for now. Heels are blanchable red and intact.
Appetite: Swallowing study in progress, soft diet. Appetite has been poor recently.
Pressure redistribution devices in place: ON Air mattress, recommend keep on air mattress. Pillow under L arm.
Plan: Applied silicone foams to all ulcers and adhesive foams to heels. Called SPD for offloading heel boot for L leg that will also keep foot in upright position. TruVue lite boot not available, waffle air boot to be brought up. Nurse aware and
will apply. Recommend keep using foam over red area and pad with abd pad to prevent further skin changes. Would interchange CAM boot during day with waffle boot at night. Confirmed orders with hospitalist Dr. Locke and updated nurse. Updated care
plan and will follow as needed.
Note to case management of equipment requested for discharge:
Recommend follow up at wound care center upon discharge.
[2024-11-24 15:17] LABS: Glucose - Point of Care 104 mg/dl (70-99)
--- NOTE | 2024-11-24 15:41 | PTOTSP ---
Videofluoroscopic swallow study
Mild-moderate oral/pharyngeal dysphagia with silent aspiration of thin liquids via tsp, cleared with a cued cough/swallow. See patient care note for details.
Recommend:
1. IDDSI Level 5 Minced and Moist, IDDSI Level 2 Mildly Thick Liquids
2. Medications: crushed in puree if medically cleared
3. Strategies: 1:1 assistance/supervision, small single sip/bites, multiple swallows and/or alternate solids with subsequent sips of liquid after clearing mouth, intermittent cough/swallow
4. Oral care 3-5x daily
5. Aspiration risk hydration protocol - single sips of thin water with supervision
6. Dysphagia tx at the acute care level to instruct in swallowing compensations, teach chin tuck
--- NOTE | 2024-11-24 16:01 | CM ---
Reviewed the chart notes. Spoke with the patient's daughter multiple times. Left voice message for spouse. Received message from Francisca at [facility] that a bed is available. CM spoke with daughter, they prefer [facility]. Spoke with Erendira at [facility], the
family filled out financial packet and they are reviewing. Wound Care Nurse note sent to [facility] via [facility]. Patient's son-in-law left voice message wanting updates, he is not listed in contact information. CM continues to be available to
patient/family and is monitoring medical plan for needs at discharge.
Plan: Discharge to SNF/rehab when medically stable and bed secured. No precert required.
--- NOTE | 2024-11-24 18:00 | PTCARENOTE ---
Lester catheter discontinued at 16:45 as per MD order. Patient INC of urine but can use urinal with assistance. Patient INC of urine and BM since lester removal. Patient went down for video swallow today diet changed to IDDSI5 with mildly thickened
liquid, strict aspiration precautions and supervision only. Patient complete in care. Left sided weakness from prior stroke. Afib on monitor with heart rates 80-90's. Will continue to monitor frequently.
--- NOTE | 2024-11-24 19:30 | PTCARENOTE ---
Patient to be transferred to [facility] on night baker. Day RN gave verbal report to Jennifer SEPUVLEDA.
--- NOTE | 2024-11-24 20:17 | PTCARENOTE ---
Rec'd pt from previous RN. Pt able to use urinal to void 100ml of clear yellow urine. Afib on CM, rate 90s-100s. BP 114/85. 95% on RA. Pt able to take oral medications crushed in applesauce without complication. Call benson within reach. Pt to be
transferred to [facility].
[2024-11-24] MEDS: SEROQUEL 25 MG PO (21:50)
[2024-11-25] VITALS (7 sets, daily range): BP systolic 95–131; BP diastolic 59–84; BMI 31.5
[2024-11-25] MEDS: TYLENOL 650 MG PO (03:06)
[2024-11-25] MEDS: SYNTHROID 175 MCG PO (03:06)
--- NOTE | 2024-11-25 06:04 | PTCARENOTE ---
Patient bladder scanned for 197ML. Patient states he feels the need to urinate. Urinal placed within reach, pad is under patient.
--- NOTE | 2024-11-25 07:18 | W.PN.HOSP.TC ---
Today's Communication/Plan
-
cont IV diuresis as per Cardio
Assessment / Plan
Assessment / Plan
Physical Exam
General: Obese, no acute distress
HEENT: Normocephalic, Atraumatic, EOMI, MMM
Respiratory: Clear to Auscultation bilaterally
Cardiac: Normal S1/S2, tachycardic rate and irregular rhythm
GI: Soft, Nontender, Nondistended, Normal Bowel Sounds
Extremities: No Clubbing, Cyanosis, Mild lower extremity edema
Neuro: AOx3 conversant coherent
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
fluid required Levophed support. CXR showed right sided pneumonia; s/p OG tube with dark black/brown fluid. He was admitted for septic shock 2/2 COVID with superimposed bacterial infection, new atrial fibrillation.
A/P:
#Hypoxemic respiratory failure
#Sepsis (tachycardia, hypotension, leukocytosis/bandemia ) secondary to COVID pneumonia with superimposed bacterial infection
#Septic shock secondary to covid pneumonia
-Appreciate fur blowing machine operator input, extubated 11/18
-Chest x-ray showed mild opacities in the bilateral lung bases likely viral pneumonia from COVID
-MRSA screen positive. Did not qualify for Remdesivir given DAO, solitary kidney
-Patient completed 5 days of IV dexamethasone, status post full course of IV Zosyn
-Required 3 pressors on 11/15; off all pressors 11/19
-11/20 off isolation precautions for COVID
-weaned off oxygen supplementation
-speech eval w VSE appreciated cleared for minced moist diet with mildly thick (nectar thick) liquids
#New Onset atrial fibrillation with RVR
-Echo reviewed. Cardiology following
-Transitioned from IV amiodarone and IV heparin drip to oral Cardizem and Eliquis 11/20
-Cardizem titrated up to 90 mg QID as per Cardio
-Home Synthroid dose reduced (see below)
Heart Failure preserved EF
-hold RECEIVABLES SPECIALIST Lasix 40mg PO QD
-IV lasix, new Spironolactone 12.5 mg daily as per cardio
Hypokalemia
-monitor and replete as necessary
Recent subdural hematoma on 10/02/24
-Head CT here neg
Hypothyroidism
- Synthroid held while NPO
-His TSH was < 0.02 on admit
-Levothyroxine resumed at lower dose on 11/18
-Follow up TFT's in 4-6 weeks
History of renal cell carcinoma status post kidney resection
DAO
NAGMA
-Resolved
Brown output from OG tube
-Protonix BID
-hg has been stable; IV Heparin gtt initiated on 11/16 for Afib (high risk with hx CVA)
-may have been vomiting in setting of constipation (see below)
-monitor
Constipation
-bowel regimen miralax senna colace
Abnormal CT with 2.2 cm nodule left nephrectomy bed
-patient will need outpatient follow up
Mild Transaminitis likely secondary to COVID
-resolving
Hyponatremia secondary to COVID
-Resolved
Possible Urinary tract infection
-Status post full course of Zosyn
Obesity due to excess calories
-Affects all aspects of care
Recent CVA with left-sided deficit
-Bedbound at baseline
Poor oral intake
-Started protein supplement, encourage oral intake
DVT prophylaxis�Eliquis
Full Code
Dispo - [facility] vs [facility] once family decides & medically ready
Total time spent to see the patient on the floor, examine the patient, review data and lab results, discuss treatment plan with patient, nursing staff around 40 minutes.
Anticipated Discharge: 24 - 48 hours
Subjective/Interval History
-
Date of Service: November 25, 2024
no acute distress. Appears comfortable. Weaned off oxygen supplementation. Stable respiratory status on room air.
Objective Data
-
Labs:
Laboratory Results
11/25/24
06:00
WBC Pending
Hgb Pending
Hct Pending
Plt Count Pending
Sodium Pending
Potassium Pending
Chloride Pending
Carbon Dioxide Pending
BUN Pending
Creatinine Pending
Glucose Pending
Calcium Pending
Vital Signs:
Vital Signs
Temp Pulse Resp BP Pulse Ox
98.7 F 91 18 129/67 98
11/25/24 07:17 11/25/24 07:17 11/25/24 07:17 11/25/24 07:17 11/25/24 07:17
I&O
11/24/24 11/25/24 11/26/24
06:59 06:59 06:59
Intake Total 500 / 500 1015 / 1015
Output Total 1700 / 1700 1600 / 1600
Balance -1200 / -1200 -585 / -585
[2024-11-25] MEDS: LIORESAL 5 MG PO (08:15)
[2024-11-25 08:58] LABS: Hematocrit 31.5 % (39.0-52.0); Hemoglobin 10.5 g/dL (13.0-18.0); Mean Corp Hgb Conc. 33.3 g/dL (33.0-37.0); Mean Corpuscular Hgb 31.4 pg (27.0-31.0); Mean Corpuscular Volume 94.3 fL (80.0-94.0); Mean Platelet Volume 9.1 fL (7.4-10.4); Platelet Count 205 10^3/uL (130-400); Red Blood Cell Count 3.34 10^6/uL (4.70-6.10); Red Cell Dist. Width 15.6 % (11.5-14.5); White Blood Cell Count 7.6 10^3/uL (4.8-10.8)
--- NOTE | 2024-11-25 09:21 | W.PN.CD ---
Today's Communication / Plan
-
cont IV diuresis
Impression / Plan
-
Background: 79M with RCC s/p nephrectomy, hypothyroidism, and ambulatory dysfunction (bedbound) who presented to the emergency department with a chief complaint of shortness of breath. He was diagnosed with COVID-19 5 days prior to arrival. He was
intubated by EMS.
Improved acute hypoxic respiratory failure, multifactorial
Resolved septic shock
HFpEF, prior Dx, was on Lasix 40 daily at home
- Weight, admit 93 kg and 98.3 (11/22/2024) => 96.5 (11/23/2024) continues to be elevated standing scale
- Effusion to small to tap by U/S 11/19/2024
- Weight not at goal, still volume overloaded on examination (edema).
- Continue lasix 40 IV BID.
- Later optimize GDMT--add SGLT2-I.
Newly diagnosed persistent atrial fibrillation
-Fairly rate controlled; continue Cardizem 90 mg QID.
- No known history of AFib, was in sinus Sep 2024 at outside hospital
- [id number]: score at least 5 (Heart failure, age 75 or more, prior Stroke/TIA)
-Started on Eliquis; continue.
RCC s/p nephrectomy, renal function stable
Prior CVA
Recent subdural hematoma
Bedbound
Abnormal CT with 2.2 cm nodule left nephrectomy bed => will need f/u
Subjecive: feeling improved
Data:
Echocardiogram, 11/17/2024:
Technically difficult study with fair acoustic windows.
Normal biventricular size and systolic function without regional wall motion
abnormality.
Mild concentric left ventricular hypertrophy.
Mildly dilated left atrium.
Mild mitral regurgitation.
Estimated PASP 36 mmHg, assuming RA 3 mmHg.
No prior study available for comparison.
Physical Exam
Vital Signs/Labs
Vital Signs
Temp Pulse Resp BP Pulse Ox
98.7 F 91 18 129/67 98
11/25/24 07:17 11/25/24 07:17 11/25/24 07:17 11/25/24 07:17 11/25/24 07:17
11/24/24 11/25/24 11/26/24
06:59 06:59 06:59
Actual Weight 208 lb 15.971 oz 207 lb 3 oz
11/25/24 08:24
PT 14.8 Sec (11.4-14.6) H 11/16/24 04:37
INR 1.13 11/16/24 04:37
APTT 128.7 Sec (23.4-35.0) H 11/18/24 02:32
Magnesium 2.1 mg/dl (1.6-2.3) 11/24/24 03:59
Triglycerides 113 mg/dl (10-149) 11/17/24 03:39
Free T4 1.87 ng/dl (0.78-2.19) 11/15/24 03:01
11/14/24 11/18/24
15:54 02:32
[id number] Pept [id number]
Physical Exam
Constitutional: No acute distress and Comfortable
EENT: Anicteric
Cardiovascular: Rhythm/rate is irregular and Pedal edema present
Respiratory: Respiratory effort normal and Lungs clear to auscul.
GI: Soft
Neuro/Psych: AO x 3
Data Reviewed
-
Date of Service: November 25, 2024
EKG: Tracing Personally Visualized and interpreted (af)
Echo: Report Reviewed by me
Labs: Labs Reviewed by me
[2024-11-25] MEDS: CARDIZEM 90 MG PO ×4 (09:25→21:00)
[2024-11-25] MEDS: ELIQUIS 5 MG PO ×2 (09:25→20:07)
[2024-11-25] MEDS: ALDACTONE 12.5 MG PO (09:25)
[2024-11-25] MEDS: LASIX 40 MG IV ×2 (09:26→16:52)
[2024-11-25] MEDS: FLUSH (NSS) 2 FLUSH IV (09:27)
[2024-11-25 09:42] LABS: Blood Urea Nitrogen 17 mg/dl (9-20); Calcium 8.4 mg/dl (8.4-10.2); Carbon Dioxide 32 mmol/L (22-30); Chloride 106 mmol/L (98-107); Estimated Creatinine Clearance 81 ml/min; Glucose 91 mg/dl (70-99); Magnesium 2.1 mg/dl (1.6-2.3); Phosphorus 2.9 mg/dl (2.5-4.5); Potassium 3.5 mmol/L (3.5-5.1); Sodium 142 mmol/L (135-145); eGFR > 60.00
[2024-11-25] MEDS: TESSALON PERLES 100 MG PO (21:00)
[2024-11-25] MEDS: SEROQUEL 25 MG PO (21:00)
[2024-11-26] VITALS (8 sets, daily range): BP systolic 109–136; BP diastolic 68–90; PULSE 90; O2SAT 98; BMI 31.1
--- NOTE | 2024-11-26 06:20 | W.PN.HOSP.TC ---
Today's Communication/Plan
-
see a/p
Assessment / Plan
Assessment / Plan
Physical Exam
General: Obese, no acute distress
HEENT: Normocephalic, Atraumatic, EOMI, MMM
Respiratory: Clear to Auscultation bilaterally
Cardiac: Normal S1/S2, tachycardic rate and irregular rhythm
GI: Soft, Nontender, Nondistended, Normal Bowel Sounds
Extremities: No Clubbing, Cyanosis, Mild lower extremity edema
Neuro: AOx3 conversant coherent
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
fluid required Levophed support. CXR showed right sided pneumonia; s/p OG tube with dark black/brown fluid. He was admitted for septic shock 2/2 COVID with superimposed bacterial infection, new atrial fibrillation.
A/P:
#Hypoxemic respiratory failure
#Sepsis (tachycardia, hypotension, leukocytosis/bandemia ) secondary to COVID pneumonia with superimposed bacterial infection
#Septic shock secondary to covid pneumonia
-Appreciate carpet jack input, extubated 11/18
-Chest x-ray showed mild opacities in the bilateral lung bases likely viral pneumonia from COVID
-MRSA screen positive. Did not qualify for Remdesivir given DAO, solitary kidney
-Patient completed 5 days of IV dexamethasone, status post full course of IV Zosyn
-Required 3 pressors on 11/15; off all pressors 11/19
-11/20 off isolation precautions for COVID
-weaned off oxygen supplementation
-speech eval w VSE appreciated cleared for minced moist diet with mildly thick (nectar thick) liquids
#New Onset atrial fibrillation with RVR
-Echo appreciated limited study but normal biventricular size and systolic function w/o regional wall motion abnormality
-Transitioned from IV amiodarone and IV heparin drip to oral Cardizem and Eliquis 11/20
-Cardizem titrated up to 90 mg QID as per Cardio
-Home Synthroid dose reduced (see below)
Heart Failure preserved EF
-IV lasix, new Spironolactone 12.5 mg daily as per cardio, to transition back to oral Lasix starting tomorrow 11/27/24
Hypokalemia
-monitor and replete as necessary
Recent subdural hematoma on 10/02/24
-Head CT here neg
Hypothyroidism
- Synthroid held while NPO
-His TSH was < 0.02 on admit
-Levothyroxine resumed at lower dose on 11/18
-Follow up TFT's in 4-6 weeks
History of renal cell carcinoma status post kidney resection
DAO
NAGMA
-Resolved
Brown output from OG tube
-Protonix BID
-hg has been stable; IV Heparin gtt initiated on 11/16 for Afib (high risk with hx CVA), hep gtt since completed with start Eliquis
-may have been vomiting in setting of constipation (see below)
-since resolved OG tube discontinued
Constipation
-bowel regimen miralax senna colace
Abnormal CT with 2.2 cm nodule left nephrectomy bed
-patient will need outpatient follow up
Mild Transaminitis likely secondary to COVID
-resolving
Hyponatremia secondary to COVID
-Resolved
Possible Urinary tract infection
-Status post full course of Zosyn
Obesity due to excess calories
-Affects all aspects of care
Recent CVA with left-sided deficit
-Bedbound at baseline
Poor oral intake
-Started protein supplement, encourage oral intake
DVT prophylaxis�Eliquis
Full Code
discussed with patient and patient's daughter Marlene
Total time spent to see the patient on the floor, examine the patient, review data and lab results, discuss treatment plan with patient, nursing staff around 40 minutes.
Anticipated Discharge: Within 24 hours
Subjective/Interval History
-
Date of Service: November 26, 2024
No acute distress appears comfortable. Stable respiratory status on room air.
Objective Data
-
Labs:
Laboratory Results
11/26/24
06:00
WBC Pending
Hgb Pending
Hct Pending
Plt Count Pending
Sodium Pending
Potassium Pending
Chloride Pending
Carbon Dioxide Pending
BUN Pending
Creatinine Pending
Glucose Pending
Calcium Pending
Vital Signs:
Vital Signs
Temp Pulse Resp BP Pulse Ox
98 F 70 16 123/90 96
11/26/24 03:00 11/26/24 03:00 11/26/24 03:00 11/26/24 03:00 11/26/24 03:00
I&O
11/24/24 11/25/24 11/26/24
06:59 06:59 06:59
Intake Total 500 / 500 1015 / 1015 960 / 960
Output Total 1700 / 1700 1600 / 1600
Balance -1200 / -1200 -585 / -585 960 / 960
[2024-11-26] MEDS: SYNTHROID 175 MCG PO (06:22)
[2024-11-26 07:28] LABS: Hematocrit 29.2 % (39.0-52.0); Hemoglobin 10.1 g/dL (13.0-18.0); Mean Corp Hgb Conc. 34.6 g/dL (33.0-37.0); Mean Corpuscular Hgb 31.5 pg (27.0-31.0); Mean Platelet Volume 9.2 fL (7.4-10.4); Platelet Count 188 10^3/uL (130-400); Red Blood Cell Count 3.21 10^6/uL (4.70-6.10); Red Cell Dist. Width 15.5 % (11.5-14.5); White Blood Cell Count 7.7 10^3/uL (4.8-10.8)
[2024-11-26 07:46] LABS: Blood Urea Nitrogen 15 mg/dl (9-20); Carbon Dioxide 29 mmol/L (22-30); Chloride 107 mmol/L (98-107); Estimated Creatinine Clearance 80 ml/min; Glucose 89 mg/dl (70-99); Potassium 3.3 mmol/L (3.5-5.1); Sodium 141 mmol/L (135-145); eGFR > 60.00
--- NOTE | 2024-11-26 07:58 | W.PN.CD ---
Today's Communication / Plan
-
IV diuresis today
Lasix 40 mg PO tomorrow
HR is controlled and is on AC
We will sign off please call with questions/concerns.
Will arrange follow up for Dr Arenas
Impression / Plan
-
Background: 79M with RCC s/p nephrectomy, hypothyroidism, and ambulatory dysfunction (bedbound) who presented to the emergency department with a chief complaint of shortness of breath. He was diagnosed with COVID-19 5 days prior to arrival. He was
intubated by EMS.
Improved acute hypoxic respiratory failure, multifactorial
Resolved septic shock
HFpEF, prior Dx, was on Lasix 40 daily at home
- Weight, admit 93 kg and 98.3 (11/22/2024) => 96.5 (11/23/2024) continues to be elevated standing scale
- Effusion to small to tap by U/S 11/19/2024
- Weight not at goal, still volume overloaded on examination (edema).
- Continue lasix 40 IV BID switch to PO tomorrow
- Later optimize GDMT--add [id number].
Newly diagnosed persistent atrial fibrillation
-Fairly rate controlled; continue Cardizem 90 mg QID.
- No known history of AFib, was in sinus Sep 2024 at outside hospital
- [id number]: score at least 5 (Heart failure, age 75 or more, prior Stroke/TIA)
-Started on Eliquis; continue.
RCC s/p nephrectomy, renal function stable
Prior CVA
Recent subdural hematoma
Bedbound
Abnormal CT with 2.2 cm nodule left nephrectomy bed => will need f/u
Subjecive: feeling improved
Data:
Echocardiogram, 11/17/2024:
Technically difficult study with fair acoustic windows.
Normal biventricular size and systolic function without regional wall motion
abnormality.
Mild concentric left ventricular hypertrophy.
Mildly dilated left atrium.
Mild mitral regurgitation.
Estimated PASP 36 mmHg, assuming RA 3 mmHg.
No prior study available for comparison.
Physical Exam
Vital Signs/Labs
Vital Signs
Temp Pulse Resp BP Pulse Ox
98.1 F 99 20 121/76 98
11/26/24 07:00 11/26/24 07:00 11/26/24 07:00 11/26/24 07:00 11/26/24 07:00
11/25/24 11/26/24 11/27/24
06:59 06:59 06:59
Actual Weight 207 lb 3 oz 204 lb 6.4 oz
11/26/24 06:33
11/26/24 06:33
PT 14.8 Sec (11.4-14.6) H 11/16/24 04:37
INR 1.13 11/16/24 04:37
APTT 128.7 Sec (23.4-35.0) H 11/18/24 02:32
Magnesium 2.0 mg/dl (1.6-2.3) 11/26/24 06:33
Triglycerides 113 mg/dl (10-149) 11/17/24 03:39
Free T4 1.87 ng/dl (0.78-2.19) 11/15/24 03:01
11/14/24 11/18/24
15:54 02:32
Oyx-Q-Cucfiexxzgd Pept [id number]
Physical Exam
Constitutional: No acute distress
EENT: Anicteric
Cardiovascular: Rhythm/rate is irregular and Pedal edema present
Respiratory: Respiratory effort normal and Lungs clear to auscul.
GI: Soft
Neuro/Psych: AO x 3
Data Reviewed
-
Date of Service: November 26, 2024
EKG: Tracing Personally Visualized and interpreted (af)
Echo: Report Reviewed by me
Labs: Labs Reviewed by me
[2024-11-26] MEDS: SENOKOT-S 1 TABLET PO ×2 (08:04→20:57)
[2024-11-26] MEDS: CARDIZEM 90 MG PO ×4 (08:04→21:00)
[2024-11-26] MEDS: ALDACTONE 12.5 MG PO (08:05)
[2024-11-26] MEDS: MIRALAX PO ×2 (08:05→08:25)
[2024-11-26] MEDS: LASIX 40 MG IV ×2 (08:05→17:03)
[2024-11-26] MEDS: ELIQUIS 5 MG PO ×2 (08:05→20:57)
--- NOTE | 2024-11-26 14:22 | CM ---
Chart reviewed and all updated notes faxed to [facility] for skilled placement per admissions at [facility] they will meet tomorrow to review patient and make a determination, patient is for [facility].
Plan; [facility], nursing at [facility] along with admissions to return patient's chart.
[2024-11-26] MEDS: SEROQUEL 25 MG PO (21:01)
[2024-11-27 02:40] VITALS: BP 129/68
[2024-11-27] MEDS: SYNTHROID 175 MCG PO (05:39)
[2024-11-27 06:00] VITALS: BMI 30.2
--- NOTE | 2024-11-27 06:09 | W.PN.HOSP.TC ---
Today's Communication/Plan
-
Medically stable for discharge SNF rehab, when bed available, with outpatient follow up recommendations.
Assessment / Plan
Assessment / Plan
Physical Exam
General: Obese, no acute distress
HEENT: Normocephalic, Atraumatic, EOMI, MMM
Respiratory: Clear to Auscultation bilaterally
Cardiac: S1/S2 irregular rhythm
GI: Soft, Nontender, Nondistended, Normal Bowel Sounds
Extremities: No Clubbing, Cyanosis, Mild lower extremity edema
Neuro: AOx3 conversant coherent
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
fluid required Levophed support. CXR showed right sided pneumonia; s/p OG tube with dark black/brown fluid. He was admitted for septic shock 2/2 COVID with superimposed bacterial infection, new atrial fibrillation.
A/P:
#Hypoxemic respiratory failure
#Sepsis (tachycardia, hypotension, leukocytosis/bandemia ) secondary to COVID pneumonia with superimposed bacterial infection
#Septic shock secondary to covid pneumonia
-Appreciate software systems architect input, extubated 11/18
-Chest x-ray showed mild opacities in the bilateral lung bases likely viral pneumonia from COVID
-MRSA screen positive. Did not qualify for Remdesivir given DAO, solitary kidney
-Patient completed 5 days of IV dexamethasone, status post full course of IV Zosyn
-Required 3 pressors on 11/15; off all pressors 11/19
-11/20 off isolation precautions for COVID
-weaned off oxygen supplementation
-speech eval w VSE appreciated cleared for minced moist diet with mildly thick (nectar thick) liquids
#New Onset atrial fibrillation with RVR
-Echo appreciated limited study but normal biventricular size and systolic function w/o regional wall motion abnormality
-Transitioned from IV amiodarone and IV heparin drip to oral Cardizem and Eliquis 11/20
-Cardizem titrated up to 90 mg QID as per Cardio
-Home Synthroid dose reduced (see below)
Heart Failure preserved EF
-IV lasix, new Spironolactone 12.5 mg daily as per cardio, to transition back to oral Lasix starting tomorrow 11/27/24
Hypokalemia
-monitor and replete as necessary
-scheduled potassium supplementation 20mEQ BID
Recent subdural hematoma on 10/02/24
-Head CT here neg
Hypothyroidism
- Synthroid held while NPO
-His TSH was < 0.02 on admit
-Levothyroxine resumed at lower dose on 11/18
-Follow up TFT's in 4-6 weeks
History of renal cell carcinoma status post kidney resection
DAO
NAGMA
-Resolved
Brown output from OG tube
-Protonix BID
-hg has been stable; IV Heparin gtt initiated on 11/16 for Afib (high risk with hx CVA), hep gtt since completed with start Eliquis
-may have been vomiting in setting of constipation (see below)
-since resolved OG tube discontinued
Constipation
-bowel regimen miralax senna colace
Abnormal CT with 2.2 cm nodule left nephrectomy bed
-patient will need outpatient follow up
Mild Transaminitis likely secondary to COVID
-resolving
Hyponatremia secondary to COVID
-Resolved
Possible Urinary tract infection
-Status post full course of Zosyn
Obesity due to excess calories
-Affects all aspects of care
Recent CVA with left-sided deficit
-Bedbound at baseline
Poor oral intake, possibly improving
-Started protein supplement, encourage oral intake
-11/27/24 senior controller nova appreciated protein supplement switched to pudding in keeping with speech recommendations for nectar thick liquid. Concern was brought forward by senior controller patient averaging 25% consumption last 5 meals Question if
Dobhoff supplemental feeding was necessary to provide adequate nutrition. This was discussed with patient and patient's daughter Marlene. Patient however made it quite clear that he would not agree to a dobhoff if necessary, though he would be
willing to consider a PEG tube. Patient further reported that he had been eating outside food brought in by family/friends which likely would askew our measures of consumption here. Increasing protein and albumin levels seem correlate with
improving oral intake/nutrition status. Will recommend continued follow up outpatient with repeat labwork.
DVT prophylaxis�Eliquis
Full Code
Medically stable for discharge SNF rehab, when bed available, with outpatient follow up recommendations.
discussed with patient, patient's daughter Marlene, and patient's Ifeoma
Total time spent to see the patient on the floor, examine the patient, review data and lab results, discuss treatment plan with patient, nursing staff around 40 minutes.
Anticipated Discharge: Within 24 hours
Subjective/Interval History
-
Date of Service: November 27, 2024
Objective Data
-
Labs:
Laboratory Results
11/27/24
06:00
WBC Pending
Hgb Pending
Hct Pending
Plt Count Pending
Sodium Pending
Potassium Pending
Chloride Pending
Carbon Dioxide Pending
BUN Pending
Creatinine Pending
Glucose Pending
Calcium Pending
Vital Signs:
Vital Signs
Temp Pulse Resp BP Pulse Ox
97.6 F 83 16 129/68 96
11/27/24 02:40 11/27/24 02:40 11/27/24 02:40 11/27/24 02:40 11/27/24 02:40
I&O
11/25/24 11/26/24 11/27/24
06:59 06:59 06:59
Intake Total 1015 / 1015 960 / 960 480 / 480
Output Total 1600 / 1600
Balance -585 / -585 960 / 960 480 / 462
[2024-11-27 07:00] VITALS: BP 123/74
[2024-11-27 08:01] LABS: Hematocrit 31.3 % (39.0-52.0); Hemoglobin 10.7 g/dL (13.0-18.0); Mean Corp Hgb Conc. 34.2 g/dL (33.0-37.0); Mean Corpuscular Hgb 31.8 pg (27.0-31.0); Mean Corpuscular Volume 92.9 fL (80.0-94.0); Mean Platelet Volume 9.2 fL (7.4-10.4); Platelet Count 195 10^3/uL (130-400); Red Blood Cell Count 3.37 10^6/uL (4.70-6.10); Red Cell Dist. Width 15.5 % (11.5-14.5); White Blood Cell Count 7.9 10^3/uL (4.8-10.8)
[2024-11-27] MEDS: CARDIZEM 90 MG PO ×4 (08:22→20:39)
[2024-11-27] MEDS: LASIX 40 MG PO (08:23)
[2024-11-27] MEDS: ELIQUIS 5 MG PO ×2 (08:23→20:35)
[2024-11-27] MEDS: SENOKOT-S 1 TABLET PO ×2 (08:23→20:35)
[2024-11-27] MEDS: ALDACTONE 12.5 MG PO (08:23)
[2024-11-27] MEDS: MIRALAX 17 GRAMS PO (08:24)
[2024-11-27 10:04] LABS: Blood Urea Nitrogen 15 mg/dl (9-20); Calcium 8.1 mg/dl (8.4-10.2); Carbon Dioxide 30 mmol/L (22-30); Chloride 105 mmol/L (98-107); Estimated Creatinine Clearance 63 ml/min; Glucose 82 mg/dl (70-99); Phosphorus 3.2 mg/dl (2.5-4.5); Potassium 3.2 mmol/L (3.5-5.1); Sodium 140 mmol/L (135-145); eGFR > 60.00
[2024-11-27 11:00] VITALS: BP 123/73
--- NOTE | 2024-11-27 11:50 | W.PN.ID1 ---
Date of Service
Date of Service: November 27, 2024
Today's Communication
Sign off
Assessment / Plan
Leukocytosis
-In addition to underlying process, also steroid effect.
VDRF
Clinical sepsis
COVID-19
Hyponatremia
- improved/resolved
DAO
Lactic acidosis; improved
Pyuria/bacteriuria
Hx of CVA (06/2024)
Hx renal cell carcinoma
Hypothyroidism
Recommendations:
Leukocytosis resolved.
Patient without significant respiratory symptomatology.
Prior respiratory cultures noted, but at present do not suspect pneumonia (clinical symptomatology not present, and no infiltrate on chest x-ray.)
Continue off antibiotics.
Patient overall clinically stable from a Infectious Diseases standpoint.
Will see again at your request.
����������������������������������������������������������
Chief Complaint
-: Leukocytosis, Clinical Sepsis and Other (COVID-19)
Subjective / Review of Systems
Review of Systems: No Fever and No Chills
Vital Signs / Physical Exam
Vital Signs
Vital Signs
Temp Pulse Resp BP Pulse Ox
97.4 F 85 16 123/73 99
11/27/24 11:00 11/27/24 11:00 11/27/24 11:00 11/27/24 11:00 11/27/24 11:00
Physical Exam
Constitutional: No Acute Distress, Comfortable, Chronically Ill and Non-toxic
Cardiovascular: S1/S2; Negative S3/S4
Pulmonary: Wheezes, Coarse and Non Labored
Gastrointestinal: Soft, Non Tender and Non Distended
Neurological: Awake and Alert
Psychological: Calm
Objective Data
Lab Data
Lab Results
11/27/24 07:01
11/27/24 07:01
PT 14.8 Sec (11.4-14.6) H 11/16/24 04:37
INR 1.13 11/16/24 04:37
APTT 128.7 Sec (23.4-35.0) H 11/18/24 02:32
Estimated Creat Clear 63 ml/min 11/27/24 07:01
Lactic Acid 0.9 mmol/L (0.7-2.0) 11/15/24 13:16
Total Bilirubin 0.5 mg/dl (0.2-1.3) 11/21/24 03:31
AST 75 U/L (17-59) H 11/21/24 03:31
ALT 54 U/L (0-50) H 11/21/24 03:31
Alkaline Phosphatase 121 U/L (38-126) 11/21/24 03:31
Most recent labs reviewed.
Micro Results:
11/17/24 13:23 Respiratory Culture - Final
Sputum Klebsiella pneumoniae-ESBL
Gram Stain - Final
11/14/24 16:03 Blood Culture - Final
Blood/Venous No Growth - Final Report
11/14/24 15:53 Blood Culture - Final
Blood/Venous No Growth - Final Report
11/14/24 23:45 Respiratory Culture - Final
Sputum Usual Respiratory Marjan
Gram Stain - Final
11/14/24 15:54 Urine Culture - Final
Urine Escherichia coli
11/15/24 03:01 MRSA Screen - Final
Nose Staph aureus MRSA
11/14/24 15:53 Influenza Types A & B (KOBI) - Final
Nasal Swab Negative for Influenza A & B, NAAT
Negative results must be combined with clinical observations
and patient history.
Nucleic Acid Amplification test (NAAT)performed on the
[employer] platform.
Imaging:
11/24/2024 CXR (2 view): No pneumothorax or mediastinal shift. No noted infiltrates.
11/19/2024 CXR (portable): Right basilar opacity suggesting small right pleural effusion and likely slightly decreased from prior. No pneumothorax or left pleural effusion.
11/14/2024 CT C/A/P: No filling defects in the main or lobar pulmonary arteries to indicate acute PE. Heart is normal in size without pericardial effusion. Small bilateral pleural effusions are noted. There is compressive atelectasis in the
posterior aspect of the bilateral lower lobes. No focal consolidation, pleural effusion or pneumothorax is seen. ET tube is present with tip in the mid thoracic trachea. The liver, spleen, bile ducts, pancreas and adrenal glands are unremarkable.
The gallbladder is distended and shows mild fat stranding. No cholelithiasis is seen. No hydronephrosis noted. Surgically absent left kidney. A 2.2 cm nodule in the left retroperitoneum in the region of the left nephrectomy bed with peripheral
soft tissue attenuation and central low-attenuation is noted. No bowel wall thickening is noted. No obstruction or inflammation seen. A large amount of stool is in the rectum. Please see full dictation for additional detail. Film personally
viewed.
[2024-11-27] MEDS: KLOR-CON 20 MEQ PO ×2 (14:03→20:33)
[2024-11-27 15:00] VITALS: BP 124/65
--- NOTE | 2024-11-27 15:11 | CM ---
Patient has been accepted at [facility] tomorrow, family are aware.
[facility] tomorrow
Will check on numbers for report and fax.
Plan; LTC placement at [facility].
[2024-11-27] MEDS: TYLENOL 650 MG PO (16:40)
[2024-11-27 19:14] VITALS: BP 127/70
[2024-11-27 20:12] LABS: ALT (SGPT) 34 U/L (0-50); AST (SGOT) 48 U/L (17-59); Albumin 2.6 g/dl (3.5-5.0); Alkaline Phosphatase 111 U/L (38-126); Direct Bilirubin 0.2 mg/dl (0.0-0.4); Total Bilirubin 0.6 mg/dl (0.2-1.3); Total Protein 5.1 g/dl (6.3-8.2)
[2024-11-27] MEDS: SEROQUEL 25 MG PO (20:40)
[2024-11-27 23:26] VITALS: BP 123/71
[2024-11-28 03:03] VITALS: BP 123/76
[2024-11-28] MEDS: SYNTHROID 175 MCG PO (05:43)
[2024-11-28 06:00] VITALS: BMI 29.9
--- NOTE | 2024-11-28 07:04 | W.PN.HOSP.TC ---
Today's Communication/Plan
-
discharge
Assessment / Plan
Assessment / Plan
Physical Exam
General: no acute distress comfortable
HEENT: Normocephalic, Atraumatic, EOMI, MMM
Respiratory: Clear to Auscultation bilaterally
Cardiac: S1/S2 irregular rhythm
GI: Soft, Nontender, Nondistended, Normal Bowel Sounds
Extremities: No Clubbing, Cyanosis, Mild lower extremity edema
Neuro: AOx3 conversant coherent
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
fluid required Levophed support. CXR showed right sided pneumonia; s/p OG tube with dark black/brown fluid. He was admitted for septic shock 2/2 COVID with superimposed bacterial infection, new atrial fibrillation.
A/P:
#Hypoxemic respiratory failure
#Sepsis (tachycardia, hypotension, leukocytosis/bandemia ) secondary to COVID pneumonia with superimposed bacterial infection
#Septic shock secondary to covid pneumonia
-Appreciate pea viner mechanic input, extubated 11/18
-Chest x-ray showed mild opacities in the bilateral lung bases likely viral pneumonia from COVID
-MRSA screen positive. Did not qualify for Remdesivir given DAO, solitary kidney
-Patient completed 5 days of IV dexamethasone, status post full course of IV Zosyn
-Required 3 pressors on 11/15; off all pressors 11/19
-11/20 off isolation precautions for COVID
-weaned off oxygen supplementation
-speech eval w VSE appreciated cleared for minced moist diet with mildly thick (nectar thick) liquids
#New Onset atrial fibrillation with RVR
-Echo appreciated limited study but normal biventricular size and systolic function w/o regional wall motion abnormality
-Transitioned from IV amiodarone and IV heparin drip to oral Cardizem and Eliquis 11/20
-Cardizem titrated up to 90 mg QID as per Cardio
-Home Synthroid dose reduced (see below)
Heart Failure preserved EF
-IV Lasix completed transitioned to oral Lasix, new Spironolactone 12.5 mg daily as per cardio
Hypokalemia
-monitor and replete as necessary
-scheduled potassium supplementation 20mEQ BID
Recent subdural hematoma on 10/02/24
-Head CT here neg
Hypothyroidism
- Synthroid held while NPO
-His TSH was < 0.02 on admit
-Levothyroxine resumed at lower dose on 11/18
-Follow up TFT's in 4-6 weeks
History of renal cell carcinoma status post kidney resection
DAO
NAGMA
-Resolved
Brown output from OG tube
-Protonix BID
-hg has been stable; IV Heparin gtt initiated on 11/16 for Afib (high risk with hx CVA), hep gtt since completed with start Eliquis
-may have been vomiting in setting of constipation (see below)
-since resolved OG tube discontinued
Constipation
-bowel regimen miralax senna colace
Abnormal CT with 2.2 cm nodule left nephrectomy bed
-patient will need outpatient follow up
Mild Transaminitis likely secondary to COVID
-Resolved
Hyponatremia secondary to COVID
-Resolved
Possible Urinary tract infection
-Status post full course of Zosyn
Obesity due to excess calories
-Affects all aspects of care
Recent CVA with left-sided deficit
-Bedbound at baseline
Poor oral intake, possibly improving
-Started protein supplement, encourage oral intake
-11/27/24 nursery rn nova appreciated protein supplement switched to pudding in keeping with speech recommendations for nectar thick liquid. Concern was brought forward by nursery rn patient averaging 25% consumption last 5 meals Question if
Dobhoff supplemental feeding was necessary to provide adequate nutrition. This was discussed with patient and patient's daughter Marlene. Patient however made it quite clear that he would not agree to a dobhoff if necessary, though he would be
willing to consider a PEG tube. Patient further reported that he had been eating outside food brought in by family/friends which likely would askew our measures of consumption here. Increasing protein and albumin levels seem correlate with
improving oral intake/nutrition status. Will recommend continued follow up with primary care provider outpatient with repeat labwork.
DVT prophylaxis�Eliquis
Full Code
Medically stable for discharge SNF rehab with outpatient follow up recommendations.
discussed with patient, patient's daughter Marlene, and patient's Ifeoma
Total time spent to see the patient on the floor, examine the patient, review data and lab results, discuss treatment plan with patient, nursing staff around 40 minutes.
Anticipated Discharge: Today
Subjective/Interval History
-
Date of Service: November 28, 2024
No acute distress. Overall reports feeling well. Looking forward to discharge to [facility] for rehab. Denies new acute issues.
Objective Data
-
Labs:
Laboratory Results
11/27/24 11/28/24
07:01 06:00
WBC Cancelled
Hgb Cancelled
Hct Cancelled
Plt Count Cancelled
Sodium Cancelled
Potassium Cancelled
Chloride Cancelled
Carbon Dioxide Cancelled
BUN Cancelled
Creatinine Cancelled
Glucose Cancelled
Calcium Cancelled
Total Bilirubin 0.6
AST 48
ALT 34
Alkaline Phosphatase 111
Vital Signs:
Vital Signs
Temp Pulse Resp BP Pulse Ox
97.6 F 83 16 123/76 96
11/28/24 03:03 11/28/24 03:03 11/28/24 03:03 11/28/24 03:03 11/28/24 03:03
I&O
11/27/24 11/28/24 11/29/24
06:59 06:59 06:59
Intake Total 720 / 720 240 / 240
Balance 720 / 720 240 / 240
[2024-11-28 07:31] VITALS: BP 127/79
[2024-11-28] MEDS: ELIQUIS 5 MG PO (08:38)
[2024-11-28] MEDS: CARDIZEM 90 MG PO (08:38)
[2024-11-28] MEDS: ALDACTONE 12.5 MG PO (08:39)
[2024-11-28] MEDS: SENOKOT-S 1 TABLET PO (08:39)
[2024-11-28] MEDS: LASIX 40 MG PO (08:39)
[2024-11-28] MEDS: KLOR-CON 20 MEQ PO (08:40)
[2024-11-28] MEDS: MIRALAX PO (08:41)
[2024-11-28 11:16] VITALS: BP 130/79
--- NOTE | 2024-11-28 11:19 | CM ---
Patient is for transfer to [facility] today, and has been accepted at [facility], bed is available, and ambulance seed cone picker has been arranged for 12 noon seed cone picker.
[facility]
Report [phone]

Plan; Patient to transfer to [facility] today.
--- NOTE | 2024-11-28 11:34 | W.DCSUMMARY ---
Discharge Summary
Discharge Data
Date of Admission: 11/14/24
Date of Discharge: 11/28/24
-
Pending Results: No
Discharge Plan
-
Patient Disposition: Assisted/SNF
Discharge Diagnosis/Procedures: Sepsis Shock secondary to COVID pneumonia with superimposed bacterial infection
Hypoxemic respiratory failure status post intubation, weaned off oxygen supplementation
Dysphagia
New Onset atrial fibrillation with Rapid Ventricular Rate
Acute Heart Failure with preserved Ejection Fraction
Mild Hypokalemia
Hypothyroidism
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
History Stroke
Condition: Fair
Additional Diets: Minced and Moist with mildly thick liquids ([place] Thick). Supplement nutrition with Ensure Pudding. Meds crushed in puree as able. Small sips/bites. Slow Rate. Multiple Swallows
Activity: With assistance and As tolerated
Driving Restrictions: No driving
Bathing Restrictions: None
Blood Work: Repeat CMP and thyroid function test with primary care provider in 1 week of discharge
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
Other Services: PT, OT and ST
Specialty Instructions: Weigh Daily- Call MD for wt gain/loss 3 lbs overnight/5 lbs in 1 week
Activity Restrictions/Additional Instructions:
Wound Care Instructions
Buttocks and gluteal cleft: clean with soap and water, silicone foam change daily and prn soilage. Can add adaptic over areas that may open
L Posterior thigh: clean with soap and water, adaptic and silicone foam change daily
L lateral lower leg: clean with soap and water, silicone foam change q other day and prn soilage. Cover area with additional ABD pad under boot. Use Cam boot during day with frequent skin checks and waffle heel boot at night.
Air mattress with turning schedule
increase protein in diet
Follow up at wound care center call for an appointment.
Please follow up with primary care provider in 1 week of discharge and Cardiology in 2-4 weeks of discharge. .
apixaban 5 mg tablet (Eliquis) 5 mg PO BID started for atrial fibrillation
diltiazem HCl 90 mg tablet 90 mg PO QID started for atrial fibrillation
furosemide 40 mg tablet 40 mg PO DAILY for heart failure
levothyroxine 175 mcg tablet 175 mcg PO DAILY dose reduced from 200 mcg due to concern iatrogenic Hyperthyroidism
melatonin 3 mg tablet 3 mg PO HS PRN (home medication changed to as needed for sleep)
potassium chloride 20 mEq oral packet (Klor-Con) 20 meq PO BID for hypokalemia, hold if off lasix/diuretic.
sennosides 8.6 mg-docusate sodium 50 mg tablet 1 tab PO BID started for constipation hold if diarrhea
spironolactone 25 mg tablet 12.5 mg (1/2 x 25 mg) PO DAILY started for heart failure
Please take medications as prescribed/recommended and follow up with primary care provider and/or other healthcare provider involved in your care for refills and/or further adjustment to your medication regimen as necessary.
Referrals:
Yariel Arenas MD [Active] - in two to four weeks
UNKNOWN - PT DOES,NOT KNOW [Family Provider] -
Prescriptions:
New
spironolactone 25 mg Tablet
12.5 mg PO DAILY Qty: 30 0RF
diltiazem HCl 90 mg Tablet
90 mg PO QID Qty: 120 0RF
Eliquis 5 mg Tablet
5 mg PO BID Qty: 60 0RF
furosemide 40 mg Tablet
40 mg PO DAILY Qty: 30 0RF
potassium chloride [Klor-Con] 20 mEq Packet
20 meq PO BID Qty: 60 0RF
Rx Instructions:
Hold if off Lasix/diuretic.
sennosides-docusate sodium 8.6-50 mg Tablet
1 tab PO BID Qty: 30 0RF
levothyroxine 175 mcg Tablet
175 mcg PO DAILY @ 0600 Qty: 30 0RF
acetaminophen 325 mg Tablet
650 mg PO Q4HPRN PRN (Reason: HDEZ/ mild pain/ temp >/= 100.4F) Qty: 90 0RF
Continued
acetaminophen 325 mg Tablet
650 mg PO Q6HPRN MDD 3000mg PRN (Reason: mild pain/temp >100)
guaifenesin 100 mg/5 mL Liquid
300 mg PO Q4HPRN PRN (Reason: cough)
bisacodyl [Dulcolax (bisacodyl)] 5 mg Tablet,Delayed Release (Dr/Ec)
10 mg PO DAILYPRN PRN (Reason: constipation)
gabapentin 100 mg Capsule
200 mg PO Q12H
polyethylene glycol 3350 17 gram/dose Powder
17 g PO DAILYPRN PRN (Reason: constipation)
Rx Instructions:
mix in 4-6 oz juice or water
alum-mag hydroxide-simeth [Maalox Maximum Strength] 400-400-40 mg/5 mL Suspension
30 ml PO DAILYPRN PRN (Reason: indigestion)
cholecalciferol (vitamin D3) [Vitamin D3] 25 mcg (1,000 unit) Tablet
25 mcg PO DAILY
baclofen 5 mg Tablet
5 mg PO Q8HPRN PRN (Reason: spasm)
Changed
ipratropium-albuterol 0.5 mg-3 mg(2.5 mg base)/3 mL Solution For Nebulization
3 ml INHALATION Q4HPRN PRN (Reason: shortness of breath or wheezing) Qty: 0 0RF
melatonin 3 mg Tablet
3 mg PO HS PRN (Reason: insomnia) Qty: 0 0RF
Discontinued
furosemide [Lasix] 40 mg Tablet
40 mg PO DAILY
Patient Comments:
11/14/24: take for 3 days. End date of 11/15/24.
sennosides 8.6 mg Tablet
8.6 mg PO DAILYPRN PRN (Reason: constipation)
acetaminophen [Tylenol Extra Strength] 500 mg Tablet
1,000 mg PO DAILY
magnesium hydroxide [Milk of Magnesia] 400 mg/5 mL Suspension
2,400 mg PO [id number] PRN (Reason: no BM for 3 days)
bisacodyl [Dulcolax (bisacodyl)] 10 mg Suppository
10 mg LA DAILYPRN PRN (Reason: if MOM ineffective)
Fleet Enema 19-7 gram/118 mL Enema
118 ml LA DAILYPRN PRN (Reason: if dulcolax ineffective)
levothyroxine 200 mcg Tablet
200 mcg PO DAILY
enoxaparin [Lovenox] 40 mg/0.4 mL Syringe
40 mg SC DAILY
Patient Comments:
11/14/24: Take for 28 days. End date of 11/26/24.
Paxlovid 300 mg (150 mg x 2)-100 mg Tablets,Dose Pack
3 ea PO BID
Patient Comments:
11/14/24:Take for 5 days 11/11/24-11/16/24
Discharge Orders:
Discharge Patient (As Directed); Ordered 11/28/24
Ordered By: Ari Locke
Discharge Date and Time
Print Language: [place]
== END 2024-11-28 12:36 | DRG 871 ==
LOC: 4 WEST ACU 17:57
PROVIDERS: Family Medicine; Internal Medicine Critical Care Medicine; Nurse Practitioner Family; Nurse Practitioner Primary Care; Physician Assistant Medical; Radiology Diagnostic Radiology; Student in an Organized Health Care Education/Training Program; ADMITTING PHYSICIAN Hospitalist; ATTENDING PHYSICIAN Internal Medicine; CONSULT PHYSICIAN Internal Medicine; CONSULT PHYSICIAN Internal Medicine Cardiovascular Disease; CONSULT PHYSICIAN Internal Medicine Infectious Disease; EMERGENCY PHYSICIAN Student in an Organized Health Care Education/Training Program
PROC: 5A1945Z Respiratory Ventilation, 24-96 Consecutive Hours (ICD-10-PCS; 2024-11-14)
PROC: 02HV33Z Insertion of Infusion Device into Superior Vena Cava, Percutaneous Approach (ICD-10-PCS; 2024-11-14)
PROC: 4A133J1 Monitoring of Arterial Pulse, Peripheral, Percutaneous Approach (ICD-10-PCS; 2024-11-14)
PROC: 4A133B1 Monitoring of Arterial Pressure, Peripheral, Percutaneous Approach (ICD-10-PCS; 2024-11-14)
PROC: 0D9670Z Drainage of Stomach with Drainage Device, Via Natural or Artificial Opening (ICD-10-PCS; 2024-11-14)
PROC: 03HY32Z Insertion of Monitoring Device into Upper Artery, Percutaneous Approach (ICD-10-PCS; 2024-11-14)
PROC: 5A09357 Assistance with Respiratory Ventilation, Less than 24 Consecutive Hours, Continuous Positive Airway Pressure (ICD-10-PCS; 2024-11-18)
DX: A41.9 Sepsis, unspecified organism (principal); I50.33 Acute on chronic diastolic (congestive) heart failure; J96.01 Acute respiratory failure with hypoxia; R65.21 Severe sepsis with septic shock; U07.1 COVID-19; J69.0 Pneumonitis due to inhalation of food and vomit; J15.0 Pneumonia due to Klebsiella pneumoniae; I69.354 Hemiplegia and hemiparesis following cerebral infarction affecting left non-dominant side; N17.9 Acute kidney failure, unspecified; E87.1 Hypo-osmolality and hyponatremia; N39.0 Urinary tract infection, site not specified; E87.20 Acidosis, unspecified; J98.11 Atelectasis; Z16.12 Extended spectrum beta lactamase (ESBL) resistance; Z99.11 Dependence on respirator [ventilator] status; I48.19 Other persistent atrial fibrillation; R14.0 Abdominal distension (gaseous); I48.91 Unspecified atrial fibrillation; E03.9 Hypothyroidism, unspecified; R74.01 Elevation of levels of liver transaminase levels; K59.00 Constipation, unspecified; B96.20 Unspecified Escherichia coli [E. coli] as the cause of diseases classified elsewhere; E66.09 Other obesity due to excess calories; R13.10 Dysphagia, unspecified; E86.1 Hypovolemia; R26.2 Difficulty in walking, not elsewhere classified; E87.6 Hypokalemia; Z87.891 Personal history of nicotine dependence; Z74.01 Bed confinement status; Z85.528 Personal history of other malignant neoplasm of kidney; Z90.5 Acquired absence of kidney; Z86.718 Personal history of other venous thrombosis and embolism; Z79.01 Long term (current) use of anticoagulants; Z79.890 Hormone replacement therapy; Z68.29 Body mass index [BMI] 29.0-29.9, adult
CPT/HCPCS: 51702; 70450; 71045; 71046; 71275; 74177; 74230; 76604; 80048; 80053; 80076; 80202; 81003; 81015; 82570; 82805; 82962; 83036; 83605; 83735; 83880; 83935; 84100; 84300; 84439; 84443; 84478; 84484; 85025; 85027; 85520; 85610; 85730; 87040; 87070; 87077; 87086; 87147; 87186; 87205; 87502; 87811; 92526; 92610; 92611; 93005; 93306; 94002; 94003; 94640; 94660; 96361; 96374; 96375; 97110; 97163; 97167; 97530; 97535; 99291; J2358; Q9967

== ENCOUNTER → 2024-12-05 13:09 | Outpatient (REF) | payer OTHER, MEDICARE, SELFPAY ==
[2024-12-05 13:49] LABS: % Basophils 0.7 % (0-2); % Eosinophils 4.6 % (0-6); % Lymphocytes 22.7 % (20.5-51.1); Absolute Eosinophils 0.2 10^3/uL (0-0.7); Absolute Immature Granulocytes 0.1 10^3/uL (0-0.05); Absolute Lymphocytes 0.9 10^3/uL (1.2-3.4); Absolute Monocytes 0.4 10^3/uL (0.1-0.6); Absolute Neutrophils 2.5 10^3/uL (1.4-6.5); Hematocrit 29.6 % (39.0-52.0); Hemoglobin 9.5 g/dL (13.0-18.0); Mean Corp Hgb Conc. 32.1 g/dL (33.0-37.0); Mean Corpuscular Hgb 31.6 pg (27.0-31.0); Mean Corpuscular Volume 98.3 fL (80.0-94.0); Mean Platelet Volume 10.7 fL (7.4-10.4); Nucleated Red Blood Cells % 0 % (-); Platelet Count 288 10^3/uL (130-400); Red Blood Cell Count 3.01 10^6/uL (4.70-6.10); Red Cell Dist. Width 15.9 % (11.5-14.5); White Blood Cell Count 4.1 10^3/uL (4.8-10.8)
[2024-12-05 13:57] LABS: ALT (SGPT) 19 U/L (0-50); AST (SGOT) 28 U/L (17-59); Albumin 2.6 g/dl (3.5-5.0); Alkaline Phosphatase 103 U/L (38-126); Blood Urea Nitrogen 12 mg/dl (9-20); Calcium 8.5 mg/dl (8.4-10.2); Carbon Dioxide 27 mmol/L (22-30); Chloride 104 mmol/L (98-107); Glucose 88 mg/dl (70-99); Potassium 4.5 mmol/L (3.5-5.1); Sodium 137 mmol/L (135-145); Total Bilirubin 0.5 mg/dl (0.2-1.3); Total Protein 5.2 g/dl (6.3-8.2); eGFR > 60.00
[2024-12-05 14:13] LABS: Free T4 1.94 ng/dl (0.78-2.19)
[2024-12-05 14:27] LABS: TSH 1.13 uIU/ml (0.47-4.68)
[2024-12-07 18:27] LABS: Total T3 (Sendout) 87 ng/dL (80-200)
== END ==
LOC: OLABN 13:09
PROVIDERS: ATTENDING PHYSICIAN Student in an Organized Health Care Education/Training Program
DX: I50.9 Heart failure, unspecified (principal); E03.9 Hypothyroidism, unspecified
CPT/HCPCS: 36415; 80053; 84439; 84443; 84480; 85025

== ENCOUNTER → 2024-12-24 10:20 | Outpatient (REF) | payer MEDICARE, OTHER, SELFPAY ==
[2024-12-24 11:47] LABS: Blood Urea Nitrogen 17 mg/dl (9-20); Calcium 8.6 mg/dl (8.4-10.2); Carbon Dioxide 28 mmol/L (22-30); Chloride 102 mmol/L (98-107); Glucose 82 mg/dl (70-99); Potassium 4.5 mmol/L (3.5-5.1); Sodium 136 mmol/L (135-145); eGFR > 60.00
== END ==
LOC: OLABN 10:20
PROVIDERS: ATTENDING PHYSICIAN Student in an Organized Health Care Education/Training Program
DX: I50.9 Heart failure, unspecified (principal)
CPT/HCPCS: 36415; 80048

== ENCOUNTER → 2025-01-12 09:31 | Outpatient (REF) | payer OTHER, MEDICARE, SELFPAY ==
[2025-01-12 10:44] LABS: Blood Urea Nitrogen 24 mg/dl (9-20); Calcium 8.7 mg/dl (8.4-10.2); Carbon Dioxide 28 mmol/L (22-30); Chloride 106 mmol/L (98-107); Glucose 94 mg/dl (70-99); Sodium 138 mmol/L (135-145); eGFR > 60.00
== END ==
LOC: OLABN 09:31
PROVIDERS: ATTENDING PHYSICIAN Student in an Organized Health Care Education/Training Program
DX: I50.9 Heart failure, unspecified (principal)
CPT/HCPCS: 36415; 80048

== ENCOUNTER → 2025-02-05 10:19 | Outpatient (REF) | payer MEDICARE, OTHER, SELFPAY ==
[2025-02-05 11:35] LABS: Blood Urea Nitrogen 17 mg/dl (9-20); Calcium 8.8 mg/dl (8.4-10.2); Carbon Dioxide 25 mmol/L (22-30); Chloride 109 mmol/L (98-107); Glucose 87 mg/dl (70-99); Potassium 3.9 mmol/L (3.5-5.1); Sodium 137 mmol/L (135-145); eGFR > 60.00
== END ==
LOC: OLABN 10:19
PROVIDERS: ATTENDING PHYSICIAN Student in an Organized Health Care Education/Training Program
DX: E87.6 Hypokalemia (principal)
CPT/HCPCS: 36415; 80048

== ENCOUNTER → 2025-02-19 09:05 | Outpatient (REF) | payer MEDICARE, OTHER, SELFPAY ==
[2025-02-19 11:12] LABS: Potassium 4.5 mmol/L (3.5-5.1)
== END ==
LOC: OLABN 09:05
PROVIDERS: ATTENDING PHYSICIAN Student in an Organized Health Care Education/Training Program
DX: E87.6 Hypokalemia (principal)
CPT/HCPCS: 36415; 84132

== ENCOUNTER → 2025-04-17 06:45 | Outpatient (REF) | payer MEDICARE, OTHER, SELFPAY | LOC: RAD 06:45 | PROVIDERS: ATTENDING PHYSICIAN Student in an Organized Health Care Education/Training Program | DX: S81.802A Unspecified open wound, left lower leg, initial encounter (principal) | CPT/HCPCS: 93922; 93925 ==

== ENCOUNTER → 2025-04-22 10:35 | Outpatient (REF) | payer MEDICARE, OTHER, SELFPAY ==
[2025-04-22 11:39] LABS: Hematocrit 30.7 % (39.0-52.0); Hemoglobin 10.4 g/dL (13.0-18.0); Mean Corp Hgb Conc. 33.9 g/dL (33.0-37.0); Mean Corpuscular Volume 93.0 fL (80.0-94.0); Nucleated Red Blood Cells % 0 % (-); Platelet Count 274 10^3/uL (130-400); Red Cell Dist. Width 13.6 % (11.5-14.5)
[2025-04-22 11:44] LABS: Blood Urea Nitrogen 22 mg/dl (9-20); Calcium 8.7 mg/dl (8.4-10.2); Carbon Dioxide 28 mmol/L (22-30); Chloride 104 mmol/L (98-107); Glucose 85 mg/dl (70-99); Potassium 4.2 mmol/L (3.5-5.1); Sodium 136 mmol/L (135-145); eGFR > 60.00
== END ==
LOC: OLABN 10:35
PROVIDERS: ATTENDING PHYSICIAN Student in an Organized Health Care Education/Training Program
DX: I48.91 Unspecified atrial fibrillation (principal); E87.1 Hypo-osmolality and hyponatremia
CPT/HCPCS: 36415; 80048; 85025

== ENCOUNTER → 2025-04-29 12:11 | Outpatient (REF) | payer MEDICARE, OTHER, SELFPAY | LOC: RAD 12:11 | PROVIDERS: ATTENDING PHYSICIAN Student in an Organized Health Care Education/Training Program | DX: I73.9 Peripheral vascular disease, unspecified (principal) | CPT/HCPCS: 75635; Q9967 ==

== ENCOUNTER → 2025-07-25 23:33 | Outpatient (REF) | payer MEDICARE, OTHER, SELFPAY ==
[2025-07-26 00:07] LABS: Hematocrit 32.7 % (39.0-52.0); Hemoglobin 10.9 g/dL (13.0-18.0); Mean Corp Hgb Conc. 33.3 g/dL (33.0-37.0); Mean Corpuscular Volume 89.8 fL (80.0-94.0); Nucleated Red Blood Cells % 0 % (-); Platelet Count 488 10^3/uL (130-400); Red Cell Dist. Width 13.5 % (11.5-14.5)
[2025-07-26 00:14] LABS: Blood Urea Nitrogen 31 mg/dl (9-20); Calcium 8.7 mg/dl (8.4-10.2); Carbon Dioxide 23 mmol/L (22-30); Chloride 106 mmol/L (98-107); Glucose 125 mg/dl (70-99); Magnesium 2.2 mg/dl (1.6-2.3); Potassium 4.7 mmol/L (3.5-5.1); Sodium 134 mmol/L (135-145); eGFR > 60.00
[2025-07-26 00:20] LABS: Urine Character Clear (Clear)
[2025-07-26 01:02] LABS: Urine Red Blood Cell 0-2 /HPF (0-2)
[2025-07-26 01:03] LABS: Urine Urothelial Cell 0-2 /LPF (FEW)
== END ==
LOC: OLABN 23:33
PROVIDERS: ATTENDING PHYSICIAN Student in an Organized Health Care Education/Training Program
DX: I10 Essential (primary) hypertension (principal); R50.9 Fever, unspecified
CPT/HCPCS: 80048; 81003; 81015; 83735; 85025; 87077; 87086

== ENCOUNTER → 2025-08-05 11:04 | Outpatient (REF) | payer MEDICARE, OTHER, SELFPAY ==
[2025-08-05 13:15] LABS: Hematocrit 34.0 % (39.0-52.0); Hemoglobin 10.7 g/dL (13.0-18.0); Mean Corp Hgb Conc. 31.5 g/dL (33.0-37.0); Mean Corpuscular Volume 91.2 fL (80.0-94.0); Platelet Count 416 10^3/uL (130-400); Red Cell Dist. Width 14.1 % (11.5-14.5)
[2025-08-05 16:32] LABS: Blood Urea Nitrogen 24 mg/dl (9-20); Calcium 8.6 mg/dl (8.4-10.2); Carbon Dioxide 26 mmol/L (22-30); Chloride 103 mmol/L (98-107); Glucose 93 mg/dl (70-99); Potassium 4.3 mmol/L (3.5-5.1); Sodium 135 mmol/L (135-145); eGFR > 60.00
== END ==
LOC: OLABN 11:04
PROVIDERS: ATTENDING PHYSICIAN Student in an Organized Health Care Education/Training Program
DX: I10 Essential (primary) hypertension (principal); I50.9 Heart failure, unspecified
CPT/HCPCS: 36415; 80048; 85027

== ENCOUNTER → 2025-08-06 10:05 | Outpatient (REF) | payer MEDICARE, OTHER, SELFPAY ==
[2025-08-06 12:09] LABS: Urine Character Clear (Clear)
[2025-08-06 12:27] LABS: Urine Red Blood Cell 0-2 /HPF (0-2)
== END ==
LOC: OLABN 10:05
PROVIDERS: ATTENDING PHYSICIAN Student in an Organized Health Care Education/Training Program
DX: D72.89 Other specified disorders of white blood cells (principal)
CPT/HCPCS: 81003; 81015; 87086

== ENCOUNTER → 2025-08-10 13:08 | Outpatient (REF) | payer MEDICARE, OTHER, SELFPAY ==
[2025-08-10 13:38] LABS: Hematocrit 31.9 % (39.0-52.0); Hemoglobin 10.3 g/dL (13.0-18.0); Mean Corp Hgb Conc. 32.3 g/dL (33.0-37.0); Mean Corpuscular Volume 90.1 fL (80.0-94.0); Nucleated Red Blood Cells % 0 % (-); Platelet Count 377 10^3/uL (130-400); Red Cell Dist. Width 14.0 % (11.5-14.5)
== END ==
LOC: OLABN 13:08
PROVIDERS: ATTENDING PHYSICIAN Student in an Organized Health Care Education/Training Program
DX: D72.829 Elevated white blood cell count, unspecified (principal)
CPT/HCPCS: 36415; 85025